=== PATIENT | female | born 1980 | race Caucasian/White ===

== ENCOUNTER → 2017-10-12 17:12 | Outpatient (CLI) | payer BC, SELFPAY ==
[2017-10-12 17:46] LABS: Protein, Urine (Random) 16.3 mg/dL (<11.9); Protein:Creat Ratio 62 mg/g CRE (0-200)
[2017-10-12 19:08] LABS: Chlamydia Trachomatis by PCR Negative (Negative); Neisserai gonorrhoeae by PCR Negative (Negative); Probe Check PASS; Sample Adequacy Control PASS; Specimen Processing Control PASS
[2017-10-27 11:07] LABS: HPV APTIMA, High Risk Negative (Negative)
== END ==
PROVIDERS: Family Provider Student in an Organized Health Care Education/Training Program; PCP Student in an Organized Health Care Education/Training Program; Visit Provider Obstetrics & Gynecology
DX: Z12.4 Encounter for screening for malignant neoplasm of cervix (principal); O09.93 Supervision of high risk pregnancy, unspecified, third trimester
CPT/HCPCS: 82570; 84156; 87086; 87491; 87591; 88175; G0145

== ENCOUNTER → 2017-10-21 10:42 | Outpatient (CLI) | payer BC, SELFPAY ==
--- NOTE | 2017-10-21 10:42 | DT_ITS ---
This patient was seen during an EMR downtime October 17, 2017 - October 24, 2017. This patient may have a combination of paper and electronic documentation or all paper documentation. All documentation is viewable within the e-chart portion of [email or web address] for each patient visit.
[2017-10-21 15:10] LABS: Absolute Lymphocyte Count 1.26 X10^3/ul (0.83-4.51); Absolute Neutrophil Count 4.5 X10^3/uL (2.0-7.7); Basophil# 0.01 X10^3/uL; Basophil% 0.2 % (0-1); Eosinophil# 0.04 X10^3/uL; Eosinophils% 0.6 % (0-5); Hematocrit 35.3 % (37-47); Hemoglobin 11.5 g/dl (12.0-15.0); Lymphocyte # 1.26 X10^3/ul (4.0); Mean Corp Hgb Conc 32.6 g/gl (32-36); Mean Corpuscular Hgb 29.2 pg (27.0-32.0); Mean Corpuscular Volume 89.6 fL (81-99); Mean Platelet Vol. 10.3 fl (6.2-12.0); Monocyte# 0.35 X10^3/uL; Monocyte% 5.6 % (0-10); Neutrophil # 4.52 X10^3/uL (2.7-7.7); Neutrophil % 73.4 % (47-70); POSITIVE COUNT NO; POSITIVE DIFFERENTIAL NO; POSITIVE MORPHOLOGY NO; Platelet Count 281 K/mm3 (150-450); RBC Distribution Width CV 13.3 % (11.6-14.6); Red Blood Count 3.94 M/mm3 (4.2-5.4); White Blood Count 6.3 K/mm3 (4.4-11.0)
[2017-10-21 15:39] LABS: ALB/GLOB Ratio 0.8 RATIO (0.9-2.4); AST(SGOT) 7 U/L (15-37); Alanine Aminotransfer ALT/SGPT 12 U/L (13-56); Albumin, Serum 3.1 g/dL (3.2-5.0); Alkaline Phosphatase 87 U/L (45-117); Anion Gap 9 (5-15); BUN 10 mg/dL (7-18); BUN/Creat Ratio 15.6 RATIO (10-20); Calcium,Total 8.5 mg/dL (8.5-10.1); Chloride 107 mmol/L (98-107); Creatinine, Serum 0.64 mg/dL (0.55-1.02); EST Glomerular Filtration Rate 112 mL/min (>60); Est Glom Filt Rate - Afr Amer 136 mL/min (>60); Glucose 104 mg/dL (74-106); Potassium 3.7 mmol/L (3.5-5.1); Protein, Total 7.1 g/dL (6.4-8.2); Sodium Level 140 mmol/L (136-145)
[2017-10-24 10:16] LABS: HIV - WCH Non-Reactive (Nonreactive); Rubella IgG 45.9 IU/mL
[2017-10-28 03:47] LABS: Rapid Plasmin Reagin (RPR) NONREACTIVE (NONREACTIVE)
== END ==
PROVIDERS: Family Provider Student in an Organized Health Care Education/Training Program; PCP Student in an Organized Health Care Education/Training Program; Visit Provider Obstetrics & Gynecology
DX: O09.93 Supervision of high risk pregnancy, unspecified, third trimester (principal); Z3A.00 Weeks of gestation of pregnancy not specified
CPT/HCPCS: 36415; 80053; 85025; 86592; 86703; 86762; 86850; 86900; 87340

== ENCOUNTER → 2017-12-07 08:21 | Outpatient (CLI) | payer BC, SELFPAY ==
--- NOTE | 2017-12-07 08:22 | US_ITS ---
STUDY: SECOND AND THIRD TRIMESTER OBSTETRICAL ULTRASOUND REASON FOR EXAM: Female, 37 years old. Routine survey. LMP: 07/25/2017 TECHNIQUE: Transabdominal PRIOR ULTRASOUND: None. FINDINGS: There is a single intrauterine fetus. The fetus is in a breech presentation. There is demonstrated cardiac activity with a heart rate of 143 bpm. There is a normal amniotic fluid volume. The largest amniotic fluid pocket measures 6.5 x 3.7 cm. The placenta is posterior in location and is not low lying. There are Grade 0 placental changes. The cervix measures 4.1 cm in length. The bilateral adnexal regions are normal. BIOMETRY: BPD: 4.54 cm: 19 weeks, 6 days HC: 17.07 cm: 19 weeks, 5 days AC: 14.70 cm: 20 weeks, 0 days FL: 2.99 cm: 19 weeks, 2 days age by current US: 19 weeks, 5 days. KERLINE by current US: 04/28/2018. Estimated weight: 304 grams, +/- 44 grams, 67 %. Age by LMP: 19 weeks, 2 days. KERLINE by LMP: 05/01/2018. ANATOMY: Gender: Indeterminant Cranium: Normal lateral ventricles. Normal choroid plexus. Normal cerebellum. Normal cisterna magna. Normal face, nose and lips. Chest: Normal 4-chamber heart. Abdomen/Pelvis: Normal diaphragm. Normal stomach. Normal abdominal wall. Normal cord insertion. Normal 3 vessel cord. Normal kidneys. Normal bladder. Spine: Normal cervical spine. Normal thoracic spine. Normal lumbar spine. Normal sacrum. Extremities: Normal bilateral upper extremities. Normal bilateral lower extremities. US/OB Anatomy Scan IMPRESSION: Single live intrauterine at 19 weeks, 5 days by current ultrasound. KERLINE of 04/28/2018. Heart rate of 143 bpm. No suspicious sonographic findings, presentation on current study is breech Electronically Signed: Nickolas Hale MD at 10:42 EDT , Service support ,
== END ==
PROVIDERS: Family Provider Student in an Organized Health Care Education/Training Program; PCP Student in an Organized Health Care Education/Training Program; Visit Provider Obstetrics & Gynecology
DX: O09.93 Supervision of high risk pregnancy, unspecified, third trimester (principal); Z3A.00 Weeks of gestation of pregnancy not specified
CPT/HCPCS: 76805

== ENCOUNTER → 2018-01-25 10:15 | Outpatient (CLI) | payer BC, SELFPAY ==
[2018-01-25 11:18] LABS: Absolute Lymphocyte Count 1.15 X10^3/ul (0.83-4.51); Absolute Neutrophil Count 5.3 X10^3/uL (2.0-7.7); Basophil# 0.01 X10^3/uL; Basophil% 0.1 % (0-1); Eosinophil# 0.07 X10^3/uL; Hematocrit 32.2 % (37-47); Hemoglobin 10.6 g/dl (12.0-15.0); Lymphocyte # 1.15 X10^3/ul (4.0); Lymphocyte % 16.7 % (19-41); Mean Corp Hgb Conc 32.9 g/gl (32-36); Mean Corpuscular Hgb 29.3 pg (27.0-32.0); Mean Platelet Vol. 10.6 fl (6.2-12.0); Monocyte# 0.33 X10^3/uL; Monocyte% 4.8 % (0-10); Neutrophil # 5.33 X10^3/uL (2.7-7.7); Neutrophil % 77.3 % (47-70); Platelet Count 262 K/mm3 (150-450); RBC Distribution Width CV 13.5 % (11.6-14.6); RBC Distribution Width SD 42.4 fl (35.1-43.9); Red Blood Count 3.62 M/mm3 (4.2-5.4); White Blood Count 6.9 K/mm3 (4.4-11.0)
[2018-01-25 11:20] LABS: POSITIVE COUNT NO; POSITIVE DIFFERENTIAL NO; POSITIVE MORPHOLOGY NO
[2018-01-25 11:33] LABS: Glucose Challenge Gest 1H 50g 100 mg/dL (70-140)
== END ==
PROVIDERS: Family Provider Student in an Organized Health Care Education/Training Program; PCP Student in an Organized Health Care Education/Training Program; Visit Provider Obstetrics & Gynecology
DX: Z34.90 Encounter for supervision of normal pregnancy, unspecified, unspecified trimester (principal)
CPT/HCPCS: 36415; 82950; 85025; 86850; 86900

== ENCOUNTER → 2018-02-08 14:26 | Outpatient (CLI) | payer BC, SELFPAY | PROVIDERS: Family Provider Student in an Organized Health Care Education/Training Program; PCP Student in an Organized Health Care Education/Training Program; Referring Provider Obstetrics & Gynecology; Visit Provider Obstetrics & Gynecology | DX: R30.0 Dysuria (principal) | CPT/HCPCS: 87086 ==

== ENCOUNTER → 2018-03-23 15:47 | Outpatient (CLI) | payer BC, SELFPAY ==
[2018-03-23 17:16] LABS: Absolute Lymphocyte Count 1.63 X10^3/ul (0.83-4.51); Absolute Neutrophil Count 6.9 X10^3/uL (2.0-7.7); Basophil# 0.01 X10^3/uL; Basophil% 0.1 % (0-1); Eosinophil# 0.07 X10^3/uL; Eosinophils% 0.8 % (0-5); Hematocrit 35.5 % (37-47); Hemoglobin 11.3 g/dl (12.0-15.0); Lymphocyte # 1.63 X10^3/ul (4.0); Lymphocyte % 17.7 % (19-41); Mean Corp Hgb Conc 31.8 g/gl (32-36); Mean Corpuscular Volume 87.9 fL (81-99); Mean Platelet Vol. 11.1 fl (6.2-12.0); Monocyte% 6.5 % (0-10); Neutrophil # 6.91 X10^3/uL (2.7-7.7); Neutrophil % 74.8 % (47-70); Platelet Count 251 K/mm3 (150-450); RBC Distribution Width CV 14.1 % (11.6-14.6); RBC Distribution Width SD 45.5 fl (35.1-43.9); Red Blood Count 4.04 M/mm3 (4.2-5.4); White Blood Count 9.2 K/mm3 (4.4-11.0)
[2018-03-23 17:18] LABS: POSITIVE COUNT NO; POSITIVE DIFFERENTIAL NO; POSITIVE MORPHOLOGY NO
== END ==
PROVIDERS: Family Provider Student in an Organized Health Care Education/Training Program; PCP Student in an Organized Health Care Education/Training Program; Referring Provider Obstetrics & Gynecology; Visit Provider Obstetrics & Gynecology
DX: O99.019 Anemia complicating pregnancy, unspecified trimester (principal); D64.9 Anemia, unspecified; Z3A.00 Weeks of gestation of pregnancy not specified
CPT/HCPCS: 36415; 85025

== ENCOUNTER → 2018-04-05 17:29 | Outpatient (CLI) | payer BC, SELFPAY ==
[2018-04-05 09:05] VITALS: BMI 45.6
== END ==
PROVIDERS: Family Provider Student in an Organized Health Care Education/Training Program; PCP Student in an Organized Health Care Education/Training Program; Referring Provider Obstetrics & Gynecology; Visit Provider Obstetrics & Gynecology
DX: Z34.90 Encounter for supervision of normal pregnancy, unspecified, unspecified trimester (principal)
CPT/HCPCS: 87081

== ENCOUNTER 2018-04-11 09:15 | Outpatient (CLI) | payer BC, SELFPAY ==
[2018-04-05 09:05] VITALS: BMI 45.6
[2018-04-11 09:55] LABS: Hematocrit 34.5 % (37-47); Hemoglobin 11.2 g/dl (12.0-15.0); Mean Corp Hgb Conc 32.5 g/gl (32-36); Mean Corpuscular Hgb 28.1 pg (27.0-32.0); Mean Corpuscular Volume 86.5 fL (81-99); Mean Platelet Vol. 11.1 fl (6.2-12.0); Platelet Count 225 K/mm3 (150-450); RBC Distribution Width CV 14.4 % (11.6-14.6); Red Blood Count 3.99 M/mm3 (4.2-5.4); White Blood Count 7.7 K/mm3 (4.4-11.0)
[2018-04-11 09:56] LABS: Scan Indicated on CBC? Y/N NO
[2018-04-11 10:01] LABS: Protein, Urine (Random) < 6.0 mg/dL (<11.9); Protein:Creat Ratio 118 mg/g CRE (0-200)
[2018-04-11 10:04] LABS: International Normalized Ratio 0.9; Prothrombin Time (Protime)PT. 12.6 SECONDS (11.7-14.9)
[2018-04-11 10:24] LABS: AST(SGOT) 10 U/L (15-37); Alanine Aminotransfer ALT/SGPT 12 U/L (13-56); EST Glomerular Filtration Rate 120 mL/min (>60); Est Glom Filt Rate - Afr Amer 145 mL/min (>60); Uric Acid 4.9 mg/dL (2.6-6.0)
[2018-04-11 10:27] VITALS: BMI 46.0
--- NOTE | 2018-04-12 08:22 | OB.TRI.NOTE ---
History of Present Illness Date of Service: 04/11/18 Was patient seen by the physician?: No Reason For Visit: NST / PAT for C section. Date of Service: 04/11/18 Final KERLINE Source: US <20 weeks History of Present Illness: Called by Caryn GIBBONS nurse. Pt with BPs 135/92, 135/91, 128/87 1+ pedal edema. ho PIH sx. 139/105 146/103 and 127/87 and 134/88 RN states that NST reactive, but pt sent in for PIH labs. Asking for review of these and orders. Pt without PIH sx. LABS: Cr 0.6 AST/ALT 02/24 Uric acid 4.9 PT/PTT -- WNL Prot/Cr ratio 118 Allergies Penicillins Allergy (Verified 04/05/18 09:06) Rash - Pertinent Past Medical History Medical History: Past Medical History (Last Reviewed 04/12/18 @ 09:06 by Keena Clifford) Anxiety Hypertension Surgical History: Past Surgical History (Last Reviewed 04/12/18 @ 09:06 by Keena Clifford) H/O section Onset Date: ~2013 Laboratory Studies: Laboratory Tests 04/11/18 04/11/18 04/11/18 Range/Units 09:40 09:40 09:40 WBC (4.4-11.0) K/mm3 RBC (4.2-5.4) M/mm3 Hgb (12.0-15.0) g/dl Hct (37-47) % MCV (81-99) fL MCH (27.0-32.0) pg MCHC (32-36) g/gl RDW (11.6-14.6) % RDW Differential (35.1-43.9) fl Plt Count (150-450) K/mm3 MPV (6.2-12.0) fl PT 12.6 (11.7-14.9) SECONDS INR 0.9 APTT 26.0 (24.1-36.2) Seconds Creatinine 0.60 (0.55-1.02) mg/dL Est GFR (MDRD) Af Amer 145 (>60) mL/min Est GFR (MDRD) Non-Af 120 (>60) mL/min Uric Acid 4.9 (2.6-6.0) mg/dL AST 10 L (15-37) U/L ALT 12 L (13-56) U/L U Random Total Protein < 6.0 (<11.9) mg/dL Urine Creatinine 49.80 (NO RANGE EST.) mg/dL Protein/Creatinin Ratio 118 (0-200) mg/g CRE 04/11/18 Range/Units 09:40 WBC 7.7 (4.4-11.0) K/mm3 RBC 3.99 L (4.2-5.4) M/mm3 Hgb 11.2 L (12.0-15.0) g/dl Hct 34.5 L (37-47) % MCV 86.5 (81-99) fL MCH 28.1 (27.0-32.0) pg MCHC 32.5 (32-36) g/gl RDW 14.4 (11.6-14.6) % RDW Differential 45.0 H (35.1-43.9) fl Plt Count 225 (150-450) K/mm3 MPV 11.1 (6.2-12.0) fl PT (11.7-14.9) SECONDS INR APTT (24.1-36.2) Seconds Creatinine (0.55-1.02) mg/dL Est GFR (MDRD) Af Amer (>60) mL/min Est GFR (MDRD) Non-Af (>60) mL/min Uric Acid (2.6-6.0) mg/dL AST (15-37) U/L ALT (13-56) U/L U Random Total Protein (<11.9) mg/dL Urine Creatinine (NO RANGE EST.) mg/dL Protein/Creatinin Ratio (0-200) mg/g CRE NST - FHR Rate Baby A Baseline: 130s per RN note. mod variability Reactive per RN note. Strip not avail. Variability:: Moderate Accelerations:: 15 x 15 Decelerations:: None NST Reactive:: Yes FHR Category:: Category I Uterine Activity:: no UCs mentioned in nursing note Impression/Plan PIH . Patient scheduled for repeat C/S on 04/17/18 PIH labs NL NST reactive per RN , Strip not available for my review Nursing noted reviewed and this note generated by review of labs, BPs and nurse charting.
--- OUTSIDE RECORDS SUMMARY | 2018-05-23 23:37 | XMS RPT_ITS ---
:1980 Author Organization OHIP Support Name Relationship Address Phone DANE TAY Unavailable [address] + [place] [address] FIORE, SU Unavailable 0 + [place] [address] [facility] Unavailable [address] + [place] [address] DANE TAY Unavailable [address] + [place] [address] FIORE, SU Unavailable Unavailable + [place] [address] [place] Unavailable [address] + [place] [address] DANE TAY Unavailable [address] + [place] [address] FIORE, SU Unavailable Unavailable + [place] [address] [place] Unavailable [address] + [place] [address] DANE TAY Unavailable [address] + [place] [address] FIORE, SU Unavailable Unavailable + [place] [address] [place] Unavailable [address] + [place] [address] DANE TAY Unavailable [address] + [place] [address] FIORE, SU Unavailable . + [place] [address] [place] Unavailable [address] + [place] [address] DANE TAY Unavailable [address] + [place] [address] MACARENA SU Unavailable . + [place] [address] [place] Unavailable [address] + [place] [address] DANE TAY Unavailable [address] + [place] [address] MACARENA, SU Unavailable Unavailable + [place] [address] [place] Unavailable [address] + [place] [address] DANE TAY Unavailable [address] + [place] [address] FIORE, SU Unavailable Unavailable + [place] [address] [place] Unavailable [address] + [place] [address] DANE TAY Unavailable [address] + [place] [address] FIORE, SU Unavailable .1 + [place] [address] [place] Unavailable [address] + [place] [address] DANE TAY Unavailable [address] + [place] [address] FIORE, SU Unavailable .1 + [place] [address] [place] Unavailable [address] + [place] [address] DANE TAY Unavailable [address] + [place] [address] FIORE, SU Unavailable Unavailable + [place] [address] [place] Unavailable [address] + [place] [address] DANE TAY Unavailable [address] + [place] [address] FIORE, SU Unavailable . + [place] [address] [place] Unavailable [address] + [place] [address] DANE TAY Unavailable [address] + [place] [address] MACARENA SU Unavailable . + [place] [address] [place] Unavailable [address] + [place] [address] DANE TAY Unavailable [address] + [place] [address] MACARENA, SU Unavailable . + [place] [address] [facility] Unavailable [address] + [place] [address] DANE TAY Unavailable [address] + [place] [address] MACARENA SU Unavailable Unavailable + [place] [address] [place] Unavailable [address] + [place] [address] DANE TAY Unavailable [address] + [place] [address] MACARENA SU Unavailable . + [place] [address] [facility] Unavailable [address] + [place] [address] DANE TAY Unavailable [address] + [place] [address] MACARENA SU Unavailable Unavailable + [place] [address] [place] Unavailable [address] + [place] [address] DANE TAY Unavailable [address] + [place] [address] MACARENA SU Unavailable . + [place] [address] [place] Unavailable [address] + [place] [address] DANE TAY Unavailable [address] + [place] [address] SU FIORE Unavailable . + [place] [address] [place] Unavailable [address] + [place] [address] DANE TAY Unavailable [address] + [place] [address] SU FIORE Unavailable . + [place] [address] [place] Unavailable [address] + [place] [address] DANE TAY Unavailable [address] + [place] [address] SU FIORE Unavailable Unavailable + [place] [address] [place] Unavailable [address] + [place] [address] DANE TAY Unavailable [address] + [place] [address] [place] Unavailable [address] + [place] [address] DANE TAY Unavailable [address] + [place] [address] [place] Unavailable [address] + [place] [address] DANE TAY Unavailable [address] + [place] [address] [place] Unavailable [address] + [place] [address] DANE TAY Unavailable [address] + [place] [address] [facility] Unavailable [address] + [place] [address] FOZIA FIORE Unavailable [address] + [place] [address] Care Team Providers Name Role Phone SCOTTIE BULLOCK Attending Unavailable BERTHA HUNT Referring Unavailable NO PRIMARY MD SIOBHAN Primary Care Unavailable Kia Mitchell Attending Unavailable Blaine Henderson Referring Unavailable Bertha Hunt Attending Unavailable Blaine Henderson Referring Unavailable Henderson, Blaine Primary Care Unavailable Marcanthony, Bertha Attending Unavailable Marcanthony, Bertha Referring Unavailable Henderson, Blaine Primary Care Unavailable Marcanthony, Bertha Attending Unavailable Marcanthony, Bertha Referring Unavailable Henderson, Blaine Primary Care Unavailable Marcanthony, Bertha Attending Unavailable Henderson, Blaine Referring Unavailable Henderson, Blaine Primary Care Unavailable Marcanthony, Bertha Attending Unavailable Marcanthony, Bertha Referring Unavailable Henderson, Blaine Primary Care Unavailable Marcanthony, Bertha Attending Unavailable Henderson, Blaine Referring Unavailable Henderson, Blaine Primary Care Unavailable Vinton, Kia Attending Unavailable Henderson, Blaine Referring Unavailable Henderson, Blaine Primary Care Unavailable Marcanthony, Bertha Attending Unavailable Henderson, Blaine Referring Unavailable Henderson, Blaine Primary Care Unavailable Marcanthony, Bertha Attending Unavailable Marcanthony, Bertha Referring Unavailable Henderson, Blaine Primary Care Unavailable Marcanthony, Bertha Attending Unavailable Henderson, Blaine Referring Unavailable Marcanthony, Bertha Attending Unavailable Marcanthony, Bertha Referring Unavailable Henderson, Blaine Primary Care Unavailable Marcanthony, Bertha Attending Unavailable Henderson, Blaine Referring Unavailable Marcanthony, Bertha Attending Unavailable Henderson, Blaine Referring Unavailable Marcanthony, Bertha Attending Unavailable Henderson, Blaine Referring Unavailable Marcanthony, Bertha Attending Unavailable Marcanthony, Bertha Referring Unavailable Henderson, Blaine Primary Care Unavailable Vinton, Kia Attending Unavailable Henderson, Blaine Referring Unavailable Marcanthony, Bertha Attending Unavailable Henderson, Blaine Referring Unavailable Marcanthony, Bertha Attending Unavailable Marcanthony, Bertha Referring Unavailable Henderson, Blaine Primary Care Unavailable Marcanthony, Bertha Admitting Unavailable Marcanthony, Bertha Attending Unavailable Henderson, Blaine Primary Care Unavailable Marcanthony, Bertha Referring Unavailable Benekos, Thuy Attending Unavailable Benekos, Thuy Referring Unavailable Henderson, Blaine Primary Care Unavailable Marcanthony, Bertha Attending Unavailable Henderson, Blaine Referring Unavailable Marcanthony, Bertha Admitting Unavailable Marcanthony, Bertha Attending Unavailable Henderson, Blaine Primary Care Unavailable Marcanthony, Bertha Consulting Unavailable Marcanthony, Bertha Admitting Unavailable Stephen, Kia Attending Unavailable Marcanthony, Bertha Referring Unavailable Henderson, Blaine Primary Care Unavailable Marcanthony, Bertha Consulting Unavailable Marcanthony, Bertha Admitting Unavailable Stephen Kia Attending Unavailable Bertha Hunt Referring Unavailable Blaine Henderson Primary Care Unavailable Bertha Hunt Consulting Unavailable PROBLEMS PROBLEMS DATE TYPE CONDITION / CODE ATTENDING STATUS SOURCE 05/02/2018 Unknown Z09 - Encounter for Kia Mitchell Active [place] follow-up Community examination after Hospital completed treatment Repository for conditions other than malignant neoplasm / Z09(ICD-10) 05/02/2018 Unknown Z30.011 - Encounter Kia Mitchell Active [place] for initial Community prescription of Hospital contraceptive pills Repository / Z30.011(ICD-10) 04/19/2018 Unknown G89.18 - Other acute Marcanthony, Active [place] postprocedural pain [facility] / G89.18(ICD-10) Hospital Repository 04/12/2018 Unknown O09.90 - Supervision Marcanthony, Active [place] of high risk [facility] , Hospital unspecified, Repository unspecified trimester / O09.90(ICD-10) 04/05/2018 Unknown O09.93 - Supervision Marcanthony, Active [place] of high risk [facility] , Hospital unspecified, third Repository trimester / O09.93(ICD-10) 04/05/2018 Unknown Z68.41 - Body mass Marcanthony, Active [place] index (BMI) [facility] 40.0-44.9, adult / Hospital Z68.41(ICD-10) Repository 04/05/2018 Unknown Z98.891 - History of Marcanthony, Active [place] uterine scar from [facility] previous surgery / Hospital Z98.891(ICD-10) Repository 04/05/2018 Unknown O16.3 - Unspecified Marcanthony, Active [place] maternal [facility] hypertension, third Hospital trimester / Repository O16.3(ICD-10) 04/05/2018 Unknown O99.019 - Anemia Marcanthony, Active [place] complicating [facility] , Hospital unspecified Repository trimester / O99.019(ICD-10) 04/05/2018 Unknown O99.213 - Obesity Marcanthony, Active [place] complicating [facility] , third Hospital trimester / Repository O99.213(ICD-10) 04/05/2018 Unknown Z3A.35 - 35 weeks Marcanthony, Active [place] gestation of [facility] / Hospital Z3A.35(ICD-10) Repository 03/08/2018 Unknown Z3A.32 - 32 weeks Marcanthony, Active [place] gestation of [facility] / Hospital Z3A.32(ICD-10) Repository 03/08/2018 Unknown O99.013 - Anemia Marcanthtrevin, Active [place] complicating [facility] , third Hospital trimester / Repository O99.013(ICD-10) 03/08/2018 Unknown Z3A.30 - 30 weeks Marcanthony, Active [place] gestation of [facility] / Hospital Z3A.30(ICD-10) Repository 02/08/2018 Unknown R30.0 - Dysuria / Marcanthony, Active [place] R30.0(ICD-10) [facility] Hospital Repository 02/08/2018 Unknown Z3A.28 - 28 weeks Marcanthony, Active [place] gestation of [facility] / Hospital Z3A.28(ICD-10) Repository 01/25/2018 Unknown Z34.90 - Encounter Rhianna, Active [place] for supervision of [facility] normal , Hospital unspecified, Repository unspecified trimester / Z34.90(ICD-10) 01/25/2018 Unknown Z23 - Encounter for Rhianna, Active [place] immunization / [facility] Z23(ICD-10) Hospital Repository 01/04/2018 Unknown O09.92 - Supervision StephenKia baker Active [place] of high risk [facility] , Hospital unspecified, second Repository trimester / O09.92(ICD-10) 01/04/2018 Unknown O16.2 - Unspecified StephenKia Active [place] maternal Community hypertension, second Hospital trimester / Repository O16.2(ICD-10) 01/04/2018 Unknown Z3A.23 - 23 weeks VintonKia Active [place] gestation of [facility] / Hospital Z3A.23(ICD-10) Repository PROCEDURES PROCEDURES No Procedure Records FoundRESULTS RESULTS IRRIGATION FOREMAN OFFICE VISIT Observed: 05/02/2018 Status: F Source: [place] REPORT 9:33 AM [facility] REPOSITORY [facility] [address] [place] [address]. [address] [place] [address] OFFICE VISIT Date of Service: 05/02/18 MR#: [id number] Acct: [id number] Name: AMARA FIORE Rep #: [id number] : 1980 Provider: OLGA Mitchell Age/Sex: 37/F Location[place] [facility] Status: Signed Intake Vital Signs05/02/18 Body Mass Index (BMI) 45.7 05/02/18 Height 5 ft 7 in 05/02/18 Weight: 278 lb 05/02/18 Body Mass Index (BMI) 43.5 05/02/18 Blood Pressure 130/84 H Intake Visit Reasons: 2 WK POST OP DEL 04/17/18 Chief Complaint: 2w post c/s Marketing Reporting Analyst Required: No Is patient in pain?: No Allergies Penicillins Allergy (Verified 05/02/18 09:20) Rash Medications Propranolol HCl [Inderal (Beta Emily)] 20 mg PO BID 11/21/15 [History Confirmed 05/02/18] vitamin,calcium,jvuuawbq-neiz-lkqet acid tablet 1 tab PO QDAY 11/09/17 [History Confirmed 05/02/18] Ferrous Sulfate 04/11/18 [History Confirmed 05/02/18] Sertraline HCl [Zoloft] 100 mg PO DAILY 04/11/18 [History Confirmed 05/02/18] desogestrel 0.15 mg-ethinyl estradiol 0.03 mg tablet 1 tab PO QDAY #84 tab 05/02/18 [Rx Confirmed 05/02/18] Is last menstrual period known: No Post menopausal: No Patient : No PFSH Medical History Anxiety (Chronic) Hypertension (Chronic) Surgical History H/O section (Inactive 2013) Family History Mother Diabetes Hypertension Father Diabetes Hypertension Social History household members: significant other, children housing: house number of children: 1 current occupational status: employed current occupation: [employer] pets and animals: Yes history of recent travel: No Smoking Status: Never smoker second hand exposure: No alcohol intake: current alcohol intake frequency: other details: not while substance use type: does not use what type of physical activity do you participate in: none seatbelt use: always do you feel safe at home: Yes HPI 2 WK POST OP DEL 04/17/18: Details: AMARA FIORE is a 37 year old who presents for 2 week post op c section. States doing well emotionally and phydically. Denies issues with bowel or bladder habits. Bottle feeding and wants to start OCP Pregancy History 3 Elective abortions 1 Hx Para 2 Spontaneous abortions Past Pregnancies Del. DateName GA/Weeks Outcome Route Bth WeighInfant GeLabor LgtAnesthesiDel LocatProvider FOB t n h a n Delivery Date: 04/17/18 On 04/18/18 @ 17:01 Dianne Gutierrez CHTN Delivery Date: 08/11/13 On 10/12/17 @ 12:25 Bertha Hunt pushed 3 hours, prolonged labor and baby did not desend Exam GI Inspection: normal to inspection, incision (well healed. Nonerythematous) Palpation: soft, nontender Assessment AND Plan Problems 1. Postop check Z09 2. Oral contraception initial prescription Z30.011 Plan Routine care Discussed use, benefits, risks and side effects of Apri, used previous.. Instruct on start 4 weeks from delivery and reviewed use of condoms. RTO 4 weeks for full pp visit. Medications New: Coding Level of Care Code No Charge Diagnoses Postop check Z09 Oral contraception initial prescription Z30.011 05/02/18 0933 <Electronically signed by Kia MEDRANO> Date Kia MEDRANO Cosigner Signature: Date (if applicable) CC: DISCHARGE INSTRUCTION Observed: 04/19/2018 Status: F Source: [place] 7:44 AM [facility] REPOSITORY [facility] Medical Records Department [address] [place] [address] Instructions for Home/Discharge Instructions 04/19/18 0744 MR#: [id number] Acct: [id number] Name: AMARA FIORE Rep #: [id number] : 1980 37 From: Kia MEDRANO PCP: Blaine Padgett DO Status: ADM IN Additional Instructions: If you experience any of the following, contact your healthcare provider. * Bleeding that soaks a pad every hour for 2 hours * Fever 100.4 or higher * Unrelieved incision or abdominal pain * Swelling, redness, discharge or bleeding from your incision or episiotomy site * Your incision begins to separate * Problems urinating (including inability to urinate or burning while urinating). * Visual changes * Severe headache * Flu-like symptoms * Pain or redness in one of both of your breasts * Pain, warmth, tenderness or swelling in your legs, especially the calf area * Frequent nausea and vomiting * Symptoms of depression or anxiety If you experience any of the following, call 911 or go to the nearest Emergency Room. * Chest pain * Problems breathing * Seizure activity * Partial or complete paralysis of a body part, slurred speech, weakness or drooping of the face, or a sudden inability to walk or hold your balance Allergies/Adverse Reactions: Allergies Penicillins Allergy (Verified 04/05/18 09:06) Rash Medications to take at Discharge Propranolol HCl [Inderal (Beta Emily)] 20 mg PO BID 11/21/15 vitamin,calcium,cttrsgwn-agoa-vusmv acid tablet 1 tab PO QDAY 11/09/17 Ferrous Sulfate 04/11/18 Sertraline HCl [Zoloft] 100 mg PO DAILY 04/11/18 Naproxen 500 mg PO BID PRN #60 tablet 04/19/18 Oxycodone HCl/Acetaminophen [Percocet 5/325] 1 - 2 tablet PO Q4H PRN PRN 3 Days #15 tablet 04/19/18 The following prescriptions were given: Oxycodone HCl/Acetaminophen [Percocet 5/325] 1 - 2 tablet PO Q4H PRN PRN 3 Days #15 tablet PRN Reason: Pain Naproxen 500 mg PO BID PRN #60 tablet PRN Reason: Pain Follow-Up: Call to make an appointment with your doctor for an incision check in 1-2 weeks. You will also need a 6 week post- follow up appointment. Test results from this visit will be discussed in further detail at your follow-up appointment, if applicable. Primary Care Physician: Blaine Henderson DO [Primary Care Provider] - 04/19/18 0744 <Electronically signed by Kia MEDRANO> Date Kia Mitchell MISSILE TECHNICIAN-C CC: Blaine Padgett DO CBC-COMPLETE BLOOD CNT Collected: 04/18/2018 Status: F Source: [place] NO DIFF 5:35 AM [facility] REPOSITORY Order Comment: Comments: Day #1 Reason for Laboratory Test TYPE CODE TESTS RESULT OUT OF RANGE REFERENCE UNITS LAB L100.1000 4.4-11.0 K/mm3 Normal WBC 9.2 LAB L100.1200 4.2-5.4 M/mm3 Low RBC 3.60 LAB L100.1300 12.0-15.0 g/dl Low HGB 10.2 LAB L100.1400 37-47 % Low HCT 31.3 LAB L100.1500 81-99 fL Normal MCV 86.9 LAB L100.1600 27.0-32.0 pg Normal MCH 28.3 LAB L100.1700 32-36 g/gl Normal MCHC 32.6 LAB L100.1810 11.6-14.6 % High RDW CV 14.8 LAB L100.1820 35.1-43.9 fl High RDW SD 46.4 LAB L100.1900 150-450 K/mm3 Normal PLT 193 LAB L100.2000 6.2-12.0 fl Normal MPV 10.9 Performed By: #### L100.0500 #### [facility] [address] [place], [address] OPERATIVE REPORT Observed: 04/17/2018 Status: F Source: [place] 8:41 PM [facility] REPOSITORY [facility] Medical Records Department [address] [place] [address] Operative Report 04/17/18 1231 MR#: [id number] Acct: [id number] Name: AMARA FIORE Rep #: [id number] : 1980 37 From: Bertha Hunt MD PCP: Blaine Padgett DO Status: ADM IN Y Location: [id number] Problem List (1) Obesity complicating in third trimester Status: Acute (2) Status: Acute Qualifiers: Comment: nipt normal, declined carrier and ntd screening. anatomy scan reviewed. 34 week US normal visualization of cardiac vessels on 19 week US, normal growth. (3) History of delivery Status: Acute Comment: plan RLTCS, not a good TOLAC candidate (4) Advanced maternal age (AMA) in Status: Acute Comment: nipt normal. growth us in third trimester (5) Hypertension affecting Status: Acute Qualifiers: Comment: baseline labs, ekg, propanolol, growth us 32 weeks and nsts/gonzalo weekly on (6) Supervision of high-risk Status: Acute Qualifiers: Comment: PRR KERLINE 05/01/18 Boy. OSMAR Greg [place] Report of Operation Date of Procedure: 04/17/18 Pre-Operative Diagnosis: prev csection chtn Post-Operative Diagnosis: Same Surgery/Procedure Performed:: rltcs Description of Surgical Findings:: Enlarged blood vessels right side of the uterus scarring of the lower uterine segment lab courier: Mike Elizonod Type of Anesthesia:: Spinal Special Medications: none Specimen's removed: male Drains: ramsay Estimated Blood Loss (mL): 900 Fluids Replaced: crystalloid Description of Procedure: The patient is a 37-year-old at 38 weeks presented for repeat . Spinal anesthesia was placed without difficulty. Ramsay catheter was placed. The patient was placed in the dorsal supine position with leftward tilt. Patient was prepped and draped in the normal sterile fashion. Pfannenstiel skin incision was made with the scalpel and carried through to the underlying layer of fascia with the scalpel. Fascia was nicked in the midline and the incision extended laterally. The rectus bellies were dissected off superiorly and inferiorly with out complication both sharply and bluntly. The peritoneum was entered digitally. The incision was stretched and a low transverse uterine incision was made with the scalpel. The 's head was delivered atraumatically followed by the anterior and posterior shoulders without complication the rest of the delivered. The cord was clamped and cut and the was handed off to awaiting nurse. The placenta was delivered spontaneously immediately following and was noted to be intact and have a three-vessel cord. The uterus was exteriorized cleared of all clots and debris, and the incision was closed in a double layer closure using #1 Monocryl. The uterus was returned to the maternal abdomen and gutters were cleared of all clots and debris. The ovaries and fallopian tubes were noted to be within normal limits. The peritoneum was closed with 3-0 Monocryl in a running fashion. Fascia was closed with 0 PDS in a running fashion. Subcutaneous tissue was copiously irrigated and the skin was closed with 3-0 Monocryl in a subcuticular fashion. Mepilex dressing were applied without complication. Patient was taken to recovery in stable condition. Grafts/Implants Used: none - Complications none 04/17/182040 <Electronically signed by Bertha Hunt MD> Date Bertha Hunt MD CC: Blaine Padgett DO; Bertha Hunt MD Signed CBC W/DIFF, AUTOMATED Collected: 04/17/2018 Status: F Source: [place] 10:55 AM [facility] REPOSITORY TYPE CODE TESTS RESULT OUT OF RANGE REFERENCE UNITS LAB L100.1000 4.4-11.0 K/mm3 Normal WBC 8.0 LAB L100.1200 4.2-5.4 M/mm3 Low RBC 4.07 LAB L100.1300 12.0-15.0 g/dl Low HGB 11.7 LAB L100.1400 37-47 % Low HCT 35.0 LAB L100.1500 81-99 fL Normal MCV 86.0 LAB L100.1600 27.0-32.0 pg Normal MCH 28.7 LAB L100.1700 32-36 g/gl Normal MCHC 33.4 LAB L100.1810 11.6-14.6 % Normal RDW CV 14.6 LAB L100.1820 35.1-43.9 fl High RDW SD 45.6 LAB L100.1900 150-450 K/mm3 Normal PLT 230 LAB L100.2000 6.2-12.0 fl Normal MPV 11.4 LAB L100.2100 47-70 % High NEUT% 73.1 LAB L100.2200 19-41 % Normal LY% 19.6 LAB L100.2300 0-10 % Normal MONO% 6.5 LAB L100.2400 0-5 % Normal EO% 0.6 LAB L100.2500 0-1 % Normal BASO% 0.1 LAB L100.2550 0.0-0.9 % Normal IM GRAN % 0.100 Result Comment: IG% - Immature Granulocytes (promyelocytes, myelocytes and metamyelocytes) > 1% indicates that a LEFT SHIFT is Present. LAB L100.2620 2.0-7.7 X10 3/uL Normal Absolute Neut 5.8 LAB L100.2720 0.83-4.51 X10 3/ul Normal Absolute Lymph 1.56 Performed By: #### L100.0100 #### [facility] [address] [place], [address] TYPE AND SCREEN Collected: 04/17/2018 Status: F Source: [place] 10:55 AM [facility] REPOSITORY Order Comment: Reason for Type AND Screen/Red Cells: SURGERY Type of Surgery: TYPE CODE TESTS RESULT OUT OF RANGE REFERENCE UNITS LAB B10.0800 A Normal BLOOD TYPE GEL POSITIVE LAB B100.4000 Normal Antibody NEGATIVE Screen Performed By: #### B101.7450 #### [facility] [address] [place], [address] HISTORY AND PHYSICAL Observed: 04/17/2018 Status: F Source: [place] EXAM 9:59 AM [facility] REPOSITORY [facility] Medical Records Department [address] [place] [id number] History and Physical 04/17/18 0956 MR#: [id number] Acct: [id number] Name: FIOREAMARA Rep #: [id number] : 1980 37 From: Bertha Hunt MD PCP: Blaine Padgett DO Status: PRE IN Y Location: [facility] - Problem List (1) Obesity complicating in third trimester Status: Acute (2) Status: Acute Qualifiers: Comment: nipt normal, declined carrier and ntd screening. anatomy scan reviewed. 34 week US normal visualization of cardiac vessels on 19 week US, normal growth. (3) History of delivery Status: Acute Comment: plan RLTCS, not a good TOLAC candidate (4) Advanced maternal age (AMA) in Status: Acute Comment: nipt normal. growth us in third trimester (5) Hypertension affecting Status: Acute Qualifiers: Comment: baseline labs, ekg, propanolol, growth us 32 weeks and nsts/gonzalo weekly on (6) Supervision of high-risk Status: Acute Qualifiers: Comment: PRR KERLINE 05/01/18 Boy. OSMAR Garza Dane History Date of Admission: 08/10/13 Final KERLINE: 04/24/18 Gestational age: 39 Weeks and 0 Days History of this : This is a 37 year-old, G 2P1 at 37 weeks gestational age presents for repeat . she has a history of HTN and it has been well controlled. Medical History: Medical History (Last Reviewed 04/12/18 @ 09:06 by Keena Clifford) Anxiety F41.9 Hypertension I10 Surgical History: Surgical History (Last Reviewed 04/12/18 @ 09:06 by Keena Clifford) H/O section Onset Date: 2013 Z98.891 Allergies Penicillins Allergy (Verified 04/05/18 09:06) Rash Home Medications: Home Medications Propranolol HCl [Inderal (Beta Emily)] 20 mg PO BID 11/21/15 vitamin,calcium,wqnkfhhw-gmjh-fjmgl acid tablet 1 tab PO QDAY 11/09/17 Ferrous Sulfate 04/11/18 Sertraline HCl [Zoloft] 100 mg PO DAILY 04/11/18 Smoking Status: Never smoker Alcohol: None Number of Fetus(es): 1 Heart Tracin History Past Pregnancies: Past Pregnancies Pregancy History 3 Elective abortions 1 Hx Para 1 Spontaneous abortions Hx # Term Pregnancies Ectopic pregnancies Hx # Pregnancies Multiple births # of living children 1 Past Pregnancies Del. Date Name GA/Weeks Outcome Route Bth Weight Gen Labor Lgth Anesthesia Del Locatn Provider FOB 08/11/13 Brent 40 live - full term 9 lbs 5 ounces Male epidural [facility] Delivery Date: 08/11/13 On 10/12/17 @ 12:25 Bertha Hunt pushed 3 hours, prolonged labor and baby did not desend Labs: Course Did the patient receive Yes care? Labs Blood Type: A Current Obstetrical History Gestational Diabetes No Incompetent Cervix No Infertility No IUGR No Macrosomia No Hypertension/Pre-eclampsia Yes: HTN affecting : on propanolol 20 mg bid Placenta Previa/Abruption No PTL/PROM No Uterine anomaly No Oligohydramnios No Polyhydramnios No Multiple gestation No Past Medical History Asthma No Diabetes No Hypertension Yes: chronic HTN 10 yrs. Metoprolol prior to preg. Propanolol during preg Heart disease No Mitral valve prolapse No Neurologic/Seizure disorder/ No Migraines Kidney disease No Liver disease No Varicosities No Clotting disorders/Hx of DVT No Thyroid Dysfunction No Other medical diseases No Psychiatric disorders Yes: Chronic anxiety takes zoloft 100 mg during Major trauma No Abnormal PAP smear No Sleep apnea No Mammogram in the last 2 years Yes Enter DETAILS of medical Anemia during on Iron x 3 mths. history Advanced maternal age: 37 Social History Marital Status: SINGLE Alleged father Dane Brizuela Hx Smoking No Smoking Status Never smoker Expected Delivery Method: Spontaneous Vaginal Review of Systems Constitutional: Denies: Fever, Malaise Eyes: Denies: Blurred vision, Vision Change HEENT: Denies: Head Aches, Visual Changes Cardiovascular: Denies: Chest Pain, Palpitations Respiratory: Denies: Cough, Shortness of Breath, Wheezing Gastrointestinal: Denies: Abdominal Pain, Diarrhea, Nausea, Vomiting Genitourinary: Denies: Dysuria, Hematuria Musculoskeletal: Denies: Joint Pain, Muscle pain Skin: Denies: Lesions, Rash Neurological: Denies: Blurred vision, Focal weakness, Headaches Psychiatric: Denies: Anxiety, Depression Endocrine: Denies: Heat/ Cold Intolerance Hematologic/ Lymphatic: Denies: Easy Bruising, Easy Bleeding Physical Exam General: Alert, Cooperative, No apparent distress HEENT: Atraumatic, Normocephalic. Negative for: Thyromegaly, Lymphadenopathy Cardiovascular: Regular rate Lungs: Normal air movement Abdomen: Soft, Non Tender, Gravid Neurological: Deep Tendon Reflexes 2+/4 and Symmetrical, Neuro grossly intact. Negative for: Clonus ELASTIC ASSEMBLER: Normal external genitalia. Negative for: Vulvar lesions Estimated gestational size: Appropriate for gestational size Presentation: Cephalic Assessment/Plan All Active Problems (Last Reviewed 04/12/18 @ 09:06 by Keena Estrada Obesity complicating in third trimester (Acute) (Acute) History of delivery (Acute) Advanced maternal age (AMA) in (Acute) Hypertension affecting (Acute) Supervision of high-risk (Acute) Anemia affecting (Resolved) This is a 37 year-old, , at 37 weeks gestational age prsents for RLTCS plan RLTCS cHTN 04/17/18 0959 <Electronically signed by Bertha Hunt MD> Date Bertha Hunt MD Cosigner Signature: Date (if applicable) CC: Blaine Padgett DO; Bertha Hunt MD Signed IRRIGATION FOREMAN OFFICE VISIT Observed: 04/12/2018 Status: F Source: [place] [facility] REPORT 11:36 [facility] [address] [place], [place] [address] OFFICE VISIT Date of Service: 04/12/18 MR#: [id number] Acct: [id number] Name: AMARA FIORE Rep #: [id number] : 1980 Provider: Bertha Hunt MD Age/Sex: 37/F [place] [facility] [place]: Signed Intake Vital Signs04/12/18 Body Mass Index (BMI) 46.0 04/12/18 Height 5 ft 7 in 04/12/18 Weight: 292 lb 04/12/18 Body Mass Index (BMI) 45.7 04/12/18 Blood Pressure 130/100 H Intake Visit Reasons: 37 WEEK OB Chief Complaint: est ob Marketing Reporting Analyst Required: No Is patient in pain?: Yes Allergies Penicillins Allergy (Verified 04/05/18 09:06) Rash Medications Propranolol HCl [Inderal (Beta Emily)] 20 mg PO BID 11/21/15 [History Confirmed 04/12/18] vitamin,calcium,yubhgrxp-psmv-fakju acid tablet 1 tab PO QDAY 11/09/17 [History Confirmed 04/12/18] Ferrous Sulfate 04/11/18 [History Confirmed 04/12/18] Sertraline HCl [Zoloft] 100 mg PO DAILY 04/11/18 [History Confirmed 04/12/18] Last Menstral Period: 07/29/17 Zika: Zika virus screening: Negative : No PFSH PFSH Medical History Anxiety (Chronic) Hypertension (Chronic) Surgical History H/O section (2013) Family History Mother Diabetes Hypertension Father Diabetes Hypertension Social History household members: significant other, children housing: house number of children: 1 current occupational status: employed current occupation: [employer] pets and animals: Yes history of recent travel: No Smoking Status: Never smoker second hand exposure: No alcohol intake: current alcohol intake frequency: other details: not while substance use type: does not use what type of physical activity do you participate in: none seatbelt use: always do you feel safe at home: Yes Pregancy History 3 Elective abortions 1 Hx Para 1 Spontaneous abortions Past Pregnancies Del. DatName GA/WeeksOutcome [facility] LocaProviderFOB e ht en th ia tn 08/11/13Kaden 40 live birC-sectio9 lbs 5 Male epiduralWCH SAM th - fuln ounces l term Delivery Date: 08/11/13 On 10/12/17 @ 12:25 Bertha Hunt pushed 3 hours, prolonged labor and baby did not desend HPI 37 WEEK OB: Details: AMARA FIORE is a 37 year old who presents for routine OB visit. OB Visit KERLINE Calculator Estimated Delivery Date 05/01/18 Based on LMP (certain) 07/25/17 Current WG 37w 2d Number 1 Expected Delivery Route/Plan RLTCS 04/17/18 Specific Issue/Plans flu vaccine: planning on it tdap vaccine: given rhogam: na LARC form signed: maxwell labor support person: Dane pain management: R CS cut cord/dad catch: : no PP control planned: considering special requests: [] Initial Weight: 286 lb Date Weight BP Urine PFHR FuHt Pres MCTX DilatioFetal SVisit NProvideComment rot ov n t ote r s EGA Ef Gluco faced se 10/12/1285 lb 129/86 8 4 oz (+ 114 oz) w 2d Visit Notes Visit Date: 04/12/18 no vb lof co some n/v/d interimttent headache. mildly elevated bps at home had normal bloodwork and neg protein in urine Bertha Hunt MD on 04/12/18 Visit Date: 04/05/18 no vb lof good fm no regular ctx. bpp 12/21 gonzalo grossly normal Bertha Hunt MD on 04/05/18 Visit Date: 03/29/18 Doing well, No VB, LOF. Kia Mitchell NP-C on 03/29/18 Visit Date: 03/23/18 no v lof good fm no regualr ctx. bedside GONZALO WNL 22 cm Bertha Hunt MD on 03/28/18 Visit Date: 03/08/18 no vb lof good fm increased discharge no LOF Bertha Hunt MD on 03/08/18 Visit Date: 02/22/18 no vb lof good fm nor egular ctx Bertha Hunt MD on 02/22/18 Visit Date: 02/08/18 no vb lof good fm n regular ctx Bertha Hunt MD on 02/08/18 Visit Date: 01/25/18 no vb lof good fm no regular ctx. cbc gct today. rh positive. tdap Bertha Hunt MD on 01/25/18 Visit Date: 01/04/18 No VB, LOF. Doing well. Good FM Kia Mitchell NP-C on 01/04/18 Visit Date: 12/07/17 no vb cramping reviewed us Bertha Hunt MD on 12/08/17 Visit Date: 11/09/17 co persistent n/v doesn't want any meds. Bertha Hunt MD on 11/09/17 Visit Date: 10/12/17 No visit notes to display ACOG First Trimester First Trimester: Desire for , Alcohol, Tobacco Cessation, Illicit/Recreational Drug/Substance Use, Intimate Partner Violence, Barriers to care, Unstable Housing, Communication Barriers, Environmental/Work Hazards, Anticipated Course of Care, Toxoplasmosis Precations, Use of Any medications, Sexual activity, Exercise, Dental Care, Sauna/Hot tub use, Seat Belt use, Childbirth classes/Hospital facilities, , Travel, Indications for US and Screening for Aneuploidy Diagnostics Diagnostics Labs Blood Type A POSITIVE 01/25/18 Antibody Screen NEGATIVE 01/25/18 Hct 34.5 % (37-47) L 04/11/18 Hgb 11.2 g/dl (12.0-15.0) L 04/11/18 Glucose 1 Hr 50 gm 100 mg/dL (70-140) 01/25/18 Group B Strep DNA Cancelled 04/05/18 Details: HIV: Urine Culture: Sequential Screen: NIPT Screen: Office Procedures OB NST Non-Stress Test Indications for Monitoring: Yes hypertension Heart Rate Baseline: 135 Heart Rate Variability: moderate Movement: Present Heart Rate Accelerations: Present Decelerations: Absent Contractions: Absent Impression: Yes Reactive Non-Stress Test Category 1 Results [id number] Office Urine Glucose Negative Last Edit by Keena Clifford on 04/12/18 09:15 Office Urine Protein Negative Last Edit by Keena Clifford on 04/12/18 09:15 Assessment AND Plan Problems 1. Anemia affecting O99.019 2. History of delivery Z98.891 plan RLTCS, not a good TOLAC candidate 3. Obesity complicating in third trimester O99.213 4. Advanced maternal age (AMA) in nipt normal. growth us in third trimester 5. Hypertension affecting in third trimester O16.3 baseline labs, ekg, propanolol, growth us 32 weeks and nsts/gonzalo weekly on 6. 35 weeks gestation of Z3A.35 nipt normal, declined carrier and ntd screening. anatomy scan reviewed. 34 week US normal visualization of cardiac vessels on 19 week US, normal growth. 7. Supervision of high risk in third trimester O09.93 PRR KERLINE 05/01/18 Boy. OSMAR Garza Dane Plan movement and labor precautions reviewed. ACOG trimester education reviewed and updated. see problem list details for updated plan management information and see below for orders placed at this visit. GA appropriate handout given. Orders Orders: Coding Level of Care Code OB Routine Diagnoses Anemia affecting O99.019 History of delivery Z98.891 Obesity complicating in third trimester O99.213 Advanced maternal age (AMA) in Hypertension affecting in third trimester O16.3 Trimester: third trimester 35 weeks gestation of Z3A.35 Weeks of gestation: 35 weeks Supervision of high risk in third trimester O09.93 Trimester: third trimester Additional Codes Non-Stress Test (24195) 04/12/18 1136 <Electronically signed by Bertha Hunt MD> Date Bertha Hunt MD Cosigner Signature: Date (if applicable) CC: CBC-COMPLETE BLOOD CNT Collected: 04/11/2018 Status: F Source: [facility] NO DIFF 9:40 AM [facility] REPOSITORY TYPE CODE TESTS RESULT OUT OF RANGE REFERENCE UNITS LAB L100.1000 4.4-11.0 K/mm3 Normal WBC 7.7 LAB L100.1200 4.2-5.4 M/mm3 Low RBC 3.99 LAB L100.1300 12.0-15.0 g/dl Low HGB 11.2 LAB L100.1400 37-47 % Low HCT 34.5 LAB L100.1500 81-99 fL Normal MCV 86.5 LAB L100.1600 27.0-32.0 pg Normal MCH 28.1 LAB L100.1700 32-36 g/gl Normal MCHC 32.5 LAB L100.1810 11.6-14.6 % Normal RDW CV 14.4 LAB L100.1820 35.1-43.9 fl High RDW SD 45.0 LAB L100.1900 150-450 K/mm3 Normal PLT 225 LAB L100.2000 6.2-12.0 fl Normal MPV 11.1 Performed By: #### L100.0500 #### [facility] [address] [place], [address] PROTEIN+CREATININE Collected: Status: F Source: [facility] RATIO,URINE 04/11/2018 9:40 AM [facility] REPOSITORY TYPE CODE TESTS RESULT OUT OF RANGE REFERENCE UNITS LAB L501.1200 NO RANGE EST. mg/dL Normal UR CREAT 49.80 LAB L501.1930 <11.9 mg/dL Normal < 6.0 PROTEIN,UR.R AN. LAB L501.1940 0-200 mg/g CRE Normal PROT:CRE 118 RATIO Performed By: #### L501.0900 #### [facility] [address] [place], [address] PROTHROMBIN TIME W/INR Collected: 04/11/2018 Status: F Source: [place] 9:40 AM [facility] REPOSITORY TYPE CODE TESTS RESULT OUT OF RANGE REFERENCE UNITS LAB L300.4150 11.7-14.9 SECONDS Normal PROTIME 12.6 LAB L300.4200 Normal INR 0.9 Performed By: #### L300.3900, L300.4310, L501.1105, L501.1400, L501.4100, L501.4405 #### [facility] [address] [place], [address] PARTIAL THROMBOPLAST Collected: 04/11/2018 Status: F Source: [place] TIME 9:40 AM [facility] REPOSITORY TYPE CODE TESTS RESULT OUT OF RANGE REFERENCE UNITS LAB L300.4310 24.1-36.2 Seconds Normal PTT 26.0 Performed By: #### L300.3900, L300.4310, L501.1105, L501.1400, L501.4100, L501.4405 #### [facility] [address] [place], [address] SERUM CREATININE AND Collected: 04/11/2018 Status: F Source: [facility] GFR 9:40 AM [facility] REPOSITORY TYPE CODE TESTS RESULT OUT OF RANGE REFERENCE UNITS LAB L501.1100 0.55-1.02 mg/dL Normal 0.60 CREAT,SERUM Result Comment: The validity of the calculated GFR AND GFRAA in patients over 70 years has not been determined. Clinical correlation is essential. LAB L501.1110 >60 mL/min Normal EST GFR 120 Result Comment: Non- GFR Calc LAB L501.1115 >60 mL/min Normal EST GFR - AA 145 Result Comment: GFR Calc Performed By: #### L300.3900, L300.4310, L501.1105, L501.1400, L501.4100, L501.4405 #### [facility] [address] [place], [address] URIC ACID Collected: 04/11/2018 Status: F Source: [place] [facility] 9:40 AM [facility] REPOSITORY TYPE CODE TESTS RESULT OUT OF RANGE REFERENCE UNITS LAB L501.1400 2.6-6.0 mg/dL Normal URIC 4.9 Result Comment: The drugs N-Acetylcysteine and Metamizole may falsely depress this assay. Performed By: #### L300.3900, L300.4310, L501.1105, L501.1400, L501.4100, L501.4405 #### [facility] [address] [place], [address] AST(SGOT) Collected: 04/11/2018 Status: F Source: [place] [facility] 9:40 AM [facility] REPOSITORY TYPE CODE TESTS RESULT OUT OF RANGE REFERENCE UNITS LAB L501.4100 15-37 U/L Low AST 10 Performed By: #### L300.3900, L300.4310, L501.1105, L501.1400, L501.4100, L501.4405 #### [facility] [address] [place], [address] ALANINE AMINOTRANSFERAS Collected: 04/11/2018 Status: F Source: [place] [facility] (SGPT) 9:40 AM [facility] REPOSITORY TYPE CODE TESTS RESULT OUT OF RANGE REFERENCE UNITS LAB L501.4405 13-56 U/L Low ALT 12 Performed By: #### L300.3900, L300.4310, L501.1105, L501.1400, L501.4100, L501.4405 #### [place] [facility] [address] [place], [address] Observed: 04/05/2018 Status: F Source: [facility] CULTURE, GROUP B 5:47 PM [facility] STREPTOCOCCUS REPOSITORY RAFAEL Culture Group B Beta Streptococcus is not isolated. Performed By: #### M100.1800 #### [place] [facility] [address] [place], [address] IRRIGATION FOREMAN OFFICE VISIT Observed: 04/05/2018 Status: F Source: [facility] REPORT 10:33 AM [facility] REPOSITORY [facility] [address] [place] [address] OFFICE VISIT Date of Service: 04/05/18 MR#: [id number] Acct: [id number] Name: AMARA FIORE Rep #: [id number] : 1980 Provider: Bertha Hunt MD Age/Sex: 37/F [place] [facility] [place] Status: Signed Intake Vital Signs04/05/18 Height 5 ft 7 in 04/05/18 Weight: 291 lb 4 oz 04/05/18 Body Mass Index (BMI) 45.6 04/05/18 Blood Pressure 122/86 H Intake Visit Reasons: 36 WEEK OB Chief Complaint: est ob Marketing Reporting Analyst Required: No Is patient in pain?: No Allergies Penicillins Allergy (Verified 04/05/18 09:06) Rash Medications Propranolol HCl [Inderal (Beta Emily)] 20 mg PO BID 11/21/15 [History Confirmed 04/05/18] vitamin,calcium,qzdwwmeu-ufes-lpale acid tablet 1 tab PO QDAY 11/09/17 [History Confirmed 04/05/18] sertraline 100 mg tablet 100 mg PO DAILY #30 tab 12/14/17 [Rx Confirmed 04/05/18] Last Menstral Period: 07/29/17 Zika: Zika virus screening: Negative : No PFSH PFSH Medical History Anxiety (Chronic) Hypertension (Chronic) Surgical History H/O section (Inactive 2013) Family History Mother Diabetes Hypertension Father Diabetes Hypertension Social History household members: significant other, children housing: house number of children: 1 current occupational status: employed current occupation: [employer] pets and animals: Yes history of recent travel: No Smoking Status: Never smoker second hand exposure: No alcohol intake: current alcohol intake frequency: other details: not while substance use type: does not use what type of physical activity do you participate in: none seatbelt use: always do you feel safe at home: Yes Pregancy History 3 Elective abortions 1 Hx Para 1 Spontaneous abortions Past Pregnancies Del. DatName GA/WeeksOutcome [facility] LocaProviderFOB e ht en ia tn 08/11/13Kaden 40 live birC-sectio9 lbs 5 Male epiduralWCH SAM th - fuln ounces l term Delivery Date: 08/11/13 On 10/12/17 @ 12:25 Bertha Hunt pushed 3 hours, prolonged labor and baby did not desend HPI 36 WEEK OB: Details: AMARA FIORE is a 37 year old who presents for routine OB visit. OB Visit KERLINE Calculator Estimated Delivery Date 05/01/18 Based on LMP (certain) 07/25/17 Current WG 36w 2d Number 1 Expected Delivery Route/Plan RLTCS 04/17/18 Specific Issue/Plans flu vaccine: planning on it tdap vaccine: given rhogam: na LARC form signed: declines labor support person: Dane pain management: R CS cut cord/dad catch: : no PP control planned: considering special requests: [] Initial Weight: 286 lb Date Weight BP Urine PrFHR FuHt Pres MoCTX DilationFetal StVisit NoProviderComments E ot v te GA G Effac lucose ed Visit Notes Visit Date: 04/05/18 no vb lof good fm no regular ctx. bpp 8/8 gonzalo grossly normal Bertha Hunt MD on 04/05/18 Visit Date: 03/29/18 Doing well, No VB, LOF. MITCHELL Márquez on 03/29/18 Visit Date: 03/23/18 no v lof good fm no regualr ctx. bedside GONZALO WNL 22 cm Bertha Hunt MD on 03/28/18 Visit Date: 03/08/18 no vb lof good fm increased discharge no LOF Bertha Hunt MD on 03/08/18 Visit Date: 02/22/18 no vb lof good fm nor egular ctx Bertha Hunt MD on 02/22/18 Visit Date: 02/08/18 no vb lof good fm n regular ctx Bertha Hunt MD on 02/08/18 Visit Date: 01/25/18 no vb lof good fm no regular ctx. cbc gct today. rh positive. tdap Bertha Hunt MD on 01/25/18 Visit Date: 01/04/18 No VB, LOF. Doing well. Good FM MITCHELL Márquez on 01/04/18 Visit Date: 12/07/17 no vb cramping reviewed us Bertha Hunt MD on 12/08/17 Visit Date: 11/09/17 co persistent n/v doesn't want any meds. Bertha Hunt MD on 11/09/17 Visit Date: 10/12/17 No visit notes to display ACOG First Trimester First Trimester: Desire for , Alcohol, Tobacco Cessation, Illicit/Recreational Drug/Substance Use, Intimate Partner Violence, Barriers to care, Unstable Housing, Communication Barriers, Environmental/Work Hazards, Anticipated Course of Care, Toxoplasmosis Precations, Use of Any medications, Sexual activity, Exercise, Dental Care, Sauna/Hot tub use, Seat Belt use, Childbirth classes/Hospital facilities, , Travel, Indications for US and Screening for Aneuploidy Diagnostics Diagnostics Labs Blood Type A POSITIVE 01/25/18 Antibody Screen NEGATIVE 01/25/18 Hct 35.5 % (37-47) L 03/23/18 Hgb 11.3 g/dl (12.0-15.0) L 03/23/18 Obstetrics Ultrasound 12/07/17 Glucose 1 Hr 50 gm 100 mg/dL (70-140) 01/25/18 Details: HIV: Urine Culture: Sequential Screen: NIPT Screen: Results [id number] Office Urine Glucose Negative Last Edit by Keena Clifford on 04/05/18 09:11 Office Urine Protein Negative Last Edit by Keena Clifford on 04/05/18 09:11 Assessment AND Plan Problems 1. History of delivery Z98.891 plan RLTCS, not a good TOLAC candidate 2. Obesity complicating in third trimester O99.213 3. Anemia affecting O99.019 4. Advanced maternal age (AMA) in nipt normal. growth us in third trimester 5. Hypertension affecting in third trimester O16.3 baseline labs, ekg, propanolol, growth us 32 weeks and nsts/gonzalo weekly on 6. 35 weeks gestation of Z3A.35 nipt normal, declined carrier and ntd screening. anatomy scan reviewed. 34 week US normal visualization of cardiac vessels on 19 week US, normal growth. 7. Supervision of high risk in third trimester O09. PRR KERLINE 05/01/18 Greg. OSMAR Garza Dane 8. BMI 40.0-44.9, adult Z68.41 Plan ACOG trimester education reviewed and updated. see problem list details for updated plan management information and see below for orders placed at this visit. [place] appropriate handout given. Orders Orders: Coding Level of Care Code OB Routine Diagnoses History of delivery Z98.891 Obesity complicating in third trimester O99.213 Anemia affecting O99.019 Advanced maternal age (AMA) in Hypertension affecting in third trimester O16.3 Trimester: third trimester 35 weeks gestation of Z3A.35 Weeks of gestation: 35 weeks Supervision of high risk in third trimester O Trimester: third trimester BMI 40.0-44.9, adult Z68.41 04/05/18 1033 <Electronically signed by Bertha Hunt MD> Date Bertha Hunt MD Cosigner Signature: Date (if applicable) CC: IRRIGATION FOREMAN OFFICE VISIT Observed: 03/29/2018 Status: F Source: [facility] REPORT 11:03 AM [facility] [address] [place] [address] OFFICE VISIT Date of Service: 03/29/18 MR#: [id number] Acct: [id number] Name: AMARA FIORE Rep #: [id number] : 1980 Provider: OLGA Mitchell Age/Sex: 37/F [place] [facility] [place] Status: Signed Intake Vital Signs03/29/18 Height 5 ft 7 in 03/29/18 Weight: 291 lb 8 oz 03/29/18 Body Mass Index (BMI) 45.6 03/29/18 Blood Pressure 120/82 H Intake Visit Reasons: 35 WEEK OB Chief Complaint: est ob Marketing Reporting Analyst Required: No Is patient in pain?: No Allergies Penicillins Allergy (Verified 03/29/18 09:30) Rash Medications Propranolol HCl [Inderal (Beta Emily)] 20 mg PO BID 11/21/15 [History Confirmed 03/23/18] vitamin,calcium,ikjiabcc-ejgp-tjjmx acid tablet 1 tab PO QDAY 11/09/17 [History Confirmed 03/29/18] sertraline 100 mg tablet 100 mg PO DAILY #30 tab 12/14/17 [Rx Confirmed 03/29/18] Last Menstral Period: 07/29/17 Zika: Zika virus screening: Negative : No PFSH PFSH Medical History Anxiety (Chronic) Hypertension (Chronic) Surgical History H/O section (Inactive 2013) Family History Mother Diabetes Hypertension Father Diabetes Hypertension Social History household members: significant other, children housing: house number of children: 1 current occupational status: employed current occupation: [employer] pets and animals: Yes history of recent travel: No Smoking Status: Never smoker second hand exposure: No alcohol intake: current alcohol intake frequency: other details: not while substance use type: does not use what type of physical activity do you participate in: none seatbelt use: always do you feel safe at home: Yes Pregancy History 3 Elective abortions 1 Hx Para 1 Spontaneous abortions Past Pregnancies Del. DatName GA/WeeksOutcome Route [facility] LgAnesthesDel LocaProviderFOB e ht en th ia tn 08/11/13Kaden 40 live birC-sectio9 lbs 5 Male epiduralWCH SAM th - fuln ounces l term Delivery Date: 08/11/13 On 10/12/17 @ 12:25 Bertha Hunt pushed 3 hours, prolonged labor and baby did not desend HPI 35 WEEK OB: Details: AMARA FIORE is a 37 year old who presents for routine OB visit. OB Visit KERLINE Calculator Estimated Delivery Date 05/01/18 Based on LMP (certain) 07/25/17 Current WG 35w 2d Number 1 Expected Delivery Route/Plan RLTCS 04/17/18 Specific Issue/Plans flu vaccine: planning on it tdap vaccine: given rhogam: na LARC form signed: declines labor support person: Dane pain management: R CS cut cord/dad catch: : no PP control planned: considering special requests: [] Initial Weight: 286 lb Date Weight BP Urine PrFHR FuHt Pres MoCTX DilationFetal StVisit NoProviderComments E ot v te GA G Effac lucose ed Visit Notes Visit Date: 03/29/18 Doing well, No VB, LOF. MITCHELL Márquez on 03/29/18 Visit Date: 03/23/18 no v lof good fm no regualr ctx. bedside GONZALO WNL 22 cm Bertha Hunt MD on 03/28/18 Visit Date: 03/08/18 no vb lof good fm increased discharge no LOF Bertha Hunt MD on 03/08/18 Visit Date: 02/22/18 no vb lof good fm nor egular ctx Bertha Hunt MD on 02/22/18 Visit Date: 02/08/18 no vb lof good fm n regular ctx Bertha Hunt MD on 02/08/18 Visit Date: 01/25/18 no vb lof good fm no regular ctx. cbc gct today. rh positive. tdap Bertha Hunt MD on 01/25/18 Visit Date: 01/04/18 No VB, LOF. Doing well. Good FM MITCHELL Márquez on 01/04/18 Visit Date: 12/07/17 no vb cramping reviewed us Bertha Hunt MD on 12/08/17 Visit Date: 11/09/17 co persistent n/v doesn't want any meds. Bertha Hunt MD on 11/09/17 Visit Date: 10/12/17 No visit notes to display ACOG First Trimester First Trimester: Desire for , Alcohol, Tobacco Cessation, Illicit/Recreational Drug/Substance Use, Intimate Partner Violence, Barriers to care, Unstable Housing, Communication Barriers, Environmental/Work Hazards, Anticipated Course of Care, Toxoplasmosis Precations, Use of Any medications, Sexual activity, Exercise, Dental Care, Sauna/Hot tub use, Seat Belt use, Childbirth classes/Hospital facilities, , Travel, Indications for US and Screening for Aneuploidy Diagnostics Diagnostics Labs Blood Type A POSITIVE 01/25/18 Antibody Screen NEGATIVE 01/25/18 Hct 35.5 % (37-47) L 03/23/18 Hgb 11.3 g/dl (12.0-15.0) L 03/23/18 Obstetrics Ultrasound 12/07/17 Rubella IgG Antibody 45.9 IU/mL 10/21/17 RPR NONREACTIVE (NONREACTIVE) 10/21/17 Hep Bs Antigen 10/21/17 Glucose 1 Hr 50 gm 100 mg/dL (70-140) 01/25/18 Miscellaneous Test 10/21/17 Details: HIV: Urine Culture: Sequential Screen: NIPT Screen: Results [id number] Office Urine Glucose Negative Last Edit by Keena Clifford on 03/29/18 09:38 Office Urine Protein Negative Last Edit by Keena Clifford on 03/29/18 09:38 Assessment AND Plan Problems 1. Supervision of high risk in third trimester O09.93 PRR KERLINE 05/01/18 Boy. PC Greg Dane 2. Obesity complicating in third trimester O99.213 3. 35 weeks gestation of Z3A.35 nipt normal, declined carrier and ntd screening. anatomy scan reviewed. 34 week US normal visualization of cardiac vessels on 19 week US, normal growth. 4. History of delivery Z98.891 plan RLTCS, not a good TOLAC candidate 5. Advanced maternal age (AMA) in nipt normal. growth us in third trimester 6. Hypertension affecting in third trimester O16.3 baseline labs, ekg, propanolol, growth us 32 weeks and nsts/gonzalo weekly on Plan Orders placed: NST reactive Reviewed of labor precautions, movement/kick counts ACOG trimester education reviewed and updated See problem list details for updated plan of care Gestational age appropriate handout given RTO: 1 week Orders Orders: Coding Level of Care Code OB Routine Diagnoses Supervision of high risk in third trimester O09.93 Trimester: third trimester Obesity complicating in third trimester O99.213 35 weeks gestation of Z3A.35 Weeks of gestation: 35 weeks History of delivery Z98.891 Advanced maternal age (AMA) in Hypertension affecting in third trimester O16.3 Trimester: third trimester 03/29/18 1103 <Electronically signed by Kia MEDRANO> Date Kia MEDRANO Cosigner Signature: Date (if applicable) CC: IRRIGATION FOREMAN OFFICE VISIT Observed: 03/28/2018 Status: F Source: [facility] REPORT 2:25 AM [facility] [address] [place] [address] OFFICE VISIT Date of Service: 03/23/18 MR#: [id number] Acct: [id number] Name: AMARA FIORE Rep #: [id number] : 1980 Provider: Bertha Hunt MD Age/Sex: 37/F [place] [facility] [place] Status: Signed Intake Vital Signs03/23/18 Height 5 ft 6 in 03/23/18 Weight: 293 lb 8 oz 03/23/18 Body Mass Index (BMI) 47.3 03/23/18 Blood Pressure 120/80 Intake Visit Reasons: 34 WEEK OB Marketing Reporting Analyst Required: No Is patient in pain?: Yes Allergies Penicillins Allergy (Verified 03/23/18 14:52) Rash Medications Propranolol HCl [Inderal (Beta Emily)] 20 mg PO BID 11/21/15 [History Confirmed 03/23/18] vitamin,calcium,ljyivtrt-ktec-mybpo acid tablet 1 tab PO QDAY 11/09/17 [History Confirmed 03/23/18] sertraline 100 mg tablet 100 mg PO DAILY #30 tab 12/14/17 [Rx Confirmed 03/23/18] Last Menstral Period: 07/29/17 Zika: Zika virus screening: Negative : No PFSH PFSH Medical History Anxiety (Chronic) Hypertension (Chronic) Surgical History H/O section (2013) Family History Mother Diabetes Hypertension Father Diabetes Hypertension Social History household members: significant other, children housing: house number of children: 1 current occupational status: employed current occupation: [employer] pets and animals: Yes history of recent travel: No Smoking Status: Never smoker second hand exposure: No alcohol intake: current alcohol intake frequency: other details: not while substance use type: does not use what type of physical activity do you participate in: none seatbelt use: always do you feel safe at home: Yes Pregancy History 3 Elective abortions 1 Hx Para 1 Spontaneous abortions Past Pregnancies Del. DatName GA/WeeksOutcome [facility] LocaProviderFOB e ht en th ia tn 08/11/13Kaden 40 live birC-sectio9 lbs 5 Male epiduralWCH SAM th - fuln ounces l term Delivery Date: 08/11/13 On 10/12/17 @ 12:25 Bertha Hunt pushed 3 hours, prolonged labor and baby did not desend HPI 34 WEEK OB: Details: AMARA FIORE is a 37 year old who presents for routine OB visit. OB Visit KERLINE Calculator Estimated Delivery Date 05/01/18 Based on LMP (certain) 07/25/17 Current WG 35w 1d Number 1 Expected Delivery Route/Plan RLTCS 04/17/18 Specific Issue/Plans flu vaccine: planning on it tdap vaccine: given rhogam: na LARC form signed: maxwell labor support person: Dane pain management: R CS cut cord/dad catch: : no PP control planned: considering special requests: [] Initial Weight: 286 lb Date Weight BP Urine PFHR FuHt Pres MCTX DilatioFetal SVisit NProvideComment rot ov n t ote r s EGA Ef Gluco faced se 10/12/1285 lb 129/86 8 4 oz (+ 114 oz) w 2d Visit Notes Visit Date: 03/23/18 no v lof good fm no regualr ctx. bedside GONZALO WNL 22 cm Bertha Hunt MD on 03/28/18 Visit Date: 03/08/18 no vb lof good fm increased discharge no LOF Bertha Hunt MD on 03/08/18 Visit Date: 02/22/18 no vb lof good fm nor egular ctx Bertha Hutn MD on 02/22/18 Visit Date: 02/08/18 no vb lof good fm n regular ctx Bertha Hunt MD on 02/08/18 Visit Date: 01/25/18 no vb lof good fm no regular ctx. cbc gct today. rh positive. tdap Bertha Hunt MD on 01/25/18 Visit Date: 01/04/18 No VB, LOF. Doing well. Good FM Kia Mitchell NP-Rolly on 01/04/18 Visit Date: 12/07/17 no vb cramping reviewed us Bertha Hunt MD on 12/08/17 Visit Date: 11/09/17 co persistent n/v doesn't want any meds. Bertha Hunt MD on 11/09/17 Visit Date: 10/12/17 No visit notes to display ACOG First Trimester First Trimester: Desire for , Alcohol, Tobacco Cessation, Illicit/Recreational Drug/Substance Use, Intimate Partner Violence, Barriers to care, Unstable Housing, Communication Barriers, Environmental/Work Hazards, Anticipated Course of Care, Toxoplasmosis Precations, Use of Any medications, Sexual activity, Exercise, Dental Care, Sauna/Hot tub use, Seat Belt use, Childbirth classes/Hospital facilities, , Travel, Indications for US and Screening for Aneuploidy Diagnostics Diagnostics Labs Blood Type A POSITIVE 01/25/18 Antibody Screen NEGATIVE 01/25/18 Hct 35.5 % (37-47) L 03/23/18 Hgb 11.3 g/dl (12.0-15.0) L 03/23/18 Obstetrics Ultrasound 12/07/17 Rubella IgG Antibody 45.9 IU/mL 10/21/17 RPR NONREACTIVE (NONREACTIVE) 10/21/17 Hep Bs Antigen 10/21/17 Chlam trachomat DNA PCR Negative (Negative) 10/12/17 N.gonorrhoeae DNA (PCR) Negative (Negative) 10/12/17 Glucose 1 Hr 50 gm 100 mg/dL (70-140) 01/25/18 Miscellaneous Test 10/21/17 Details: HIV: Urine Culture: Sequential Screen: NIPT Screen: Office Procedures OB NST Non-Stress Test Indications for Monitoring: Yes hypertension Heart Rate Baseline: 130 Heart Rate Variability: moderate Movement: Present Heart Rate Accelerations: Present Decelerations: Absent Contractions: Absent Impression: Yes Reactive Non-Stress Test Category 1 Results [id number] Office Urine Glucose Negative Last Edit by Mery Vann on 03/23/18 14:53 Office Urine Protein Negative Last Edit by Mery Vann on 03/23/18 14:53 Assessment AND Plan Problems 1. History of delivery Z98.891 plan RLTCS, not a good TOLAC candidate 2. Anemia affecting in third trimester O99.013 iron. check cbc monthly 3. Advanced maternal age (AMA) in nipt normal. growth us in third trimester 4. Hypertension affecting in third trimester O16.3 baseline labs, ekg, propanolol, growth us 32 weeks and nsts/gonzalo weekly on 5. 34 weeks gestation of Z3A.34 nipt normal, declined carrier and ntd screening. anatomy scan reviewed. 34 week US normal visualization of cardiac vessels on 19 week US, normal growth. 6. Supervision of high risk in third trimester O09.93 PRR KERLINE 05/01/18 Boy. OSMAR Garza Dane 7. Obesity complicating in third trimester O99.213 Plan ACOG trimester education reviewed and updated. see problem list details for updated plan management information and see below for orders placed at this visit. GA appropriate handout given. movement and labor precautions reviewed. Orders Orders: Coding Level of Care Code OB Routine Diagnoses History of delivery Z98.891 Anemia affecting in third trimester O99.013 Trimester: third trimester Advanced maternal age (AMA) in Hypertension affecting in third trimester O16.3 Trimester: third trimester 34 weeks gestation of Z3A.34 Weeks of gestation: 34 weeks Supervision of high risk in third trimester O09.93 Trimester: third trimester Obesity complicating in third trimester O99.213 Additional Codes Non-Stress Test (80333) 03/28/18 0225 <Electronically signed by Bertha Hunt MD> Date Bertha Hunt MD Cosigner Signature: Date (if applicable) CC: CBC W/DIFF, AUTOMATED Collected: 03/23/2018 Status: F Source: [facility] 3:54 PM [facility] REPOSITORY TYPE CODE TESTS RESULT OUT OF RANGE REFERENCE UNITS LAB L100.1000 4.4-11.0 K/mm3 Normal WBC 9.2 LAB L100.1200 4.2-5.4 M/mm3 Low RBC 4.04 LAB L100.1300 12.0-15.0 g/dl Low HGB 11.3 LAB L100.1400 37-47 % Low HCT 35.5 LAB L100.1500 81-99 fL Normal MCV 87.9 LAB L100.1600 27.0-32.0 pg Normal MCH 28.0 LAB L100.1700 32-36 g/gl Low MCHC 31.8 LAB L100.1810 11.6-14.6 % Normal RDW CV 14.1 LAB L100.1820 35.1-43.9 fl High RDW SD 45.5 LAB L100.1900 150-450 K/mm3 Normal PLT 251 LAB L100.2000 6.2-12.0 fl Normal MPV 11.1 LAB L100.2100 47-70 % High NEUT% 74.8 LAB L100.2200 19-41 % Low LY% 17.7 LAB L100.2300 0-10 % Normal MONO% 6.5 LAB L100.2400 0-5 % Normal EO% 0.8 LAB L100.2500 0-1 % Normal BASO% 0.1 LAB L100.2550 0.0-0.9 % Normal IM GRAN % 0.100 Result Comment: IG% - Immature Granulocytes (promyelocytes, myelocytes and metamyelocytes) > 1% indicates that a LEFT SHIFT is Present. LAB L100.2620 2.0-7.7 X10 3/uL Normal Absolute Neut 6.9 LAB L100.2720 0.83-4.51 X10 3/ul Normal Absolute Lymph 1.63 Performed By: #### L100.0100 #### [facility] [address] [place], [place], [address] IRRIGATION FOREMAN OFFICE VISIT Observed: 03/08/2018 Status: F Source: [place] [facility] REPORT 10:09 AM [facility] REPOSITORY [facility] [address] [place] [address] OFFICE VISIT Date of Service: 03/08/18 MR#: [id number] Acct: [id number] Name: AMARA FIORE Jud Rep #: [id number] : 1980 Provider: Bertha Hunt MD Age/Sex: 37/F [place] [facility] [place] Status: Signed Intake Vital Signs03/08/18 Height 5 ft 6 in 03/08/18 Weight: 289 lb 2 oz 03/08/18 Body Mass Index (BMI) 46.6 03/08/18 Blood Pressure 120/74 Intake Visit Reasons: 32 WEEK OB Marketing Reporting Analyst Required: No Is patient in pain?: No Allergies Penicillins Allergy (Verified 03/08/18 09:39) Rash Medications Propranolol HCl [Inderal (Beta Emily)] 20 mg PO BID 11/21/15 [History Confirmed 03/08/18] vitamin,calcium,kjsjfnqs-yxak-maexz acid tablet 1 tab PO QDAY 11/09/17 [History Confirmed 03/08/18] sertraline 100 mg tablet 100 mg PO DAILY #30 tab 12/14/17 [Rx Confirmed 03/08/18] Last Menstral Period: 07/29/17 Zika: Zika virus screening: Negative : No PFSH PFSH Medical History Anxiety (Chronic) Hypertension (Chronic) Surgical History H/O section (Inactive 2013) Family History Mother Diabetes Hypertension Father Diabetes Hypertension Social History household members: significant other, children housing: house number of children: 1 current occupational status: employed current occupation: [employer] pets and animals: Yes history of recent travel: No Smoking Status: Never smoker second hand exposure: No alcohol intake: current alcohol intake frequency: other details: not while substance use type: does not use what type of physical activity do you participate in: none seatbelt use: always do you feel safe at home: Yes Pregancy History 3 Elective abortions 1 Hx Para 1 Spontaneous abortions Past Pregnancies Del. DatName GA/WeeksOutcome Route [facility] LocaProviderFOB e ht en ia tn 08/11/13Kaden 40 live birC-sectio9 lbs 5 Male epiduralWCH SAM th - fuln ounces l term Delivery Date: 08/11/13 On 10/12/17 @ 12:25 Bertha Hunt pushed 3 hours, prolonged labor and baby did not desend HPI 32 WEEK OB: Details: AMARA FIORE is a 37 year old who presents for routine OB visit. Trace Protein and negative glucose on urine dip. OB Visit KERLINE Calculator Estimated Delivery Date 05/01/18 Based on LMP (certain) 07/25/17 Current WG 32w 2d Number 1 Expected Delivery Route/Plan RLTCS 04/17/18 Specific Issue/Plans flu vaccine: planning on it tdap vaccine: given rhogam: na LARC form signed: declines labor support person: Dane pain management: R CS cut cord/dad catch: : no PP control planned: considering special requests: [] Initial Weight: 286 lb Date Weight BP Urine PFHR FuHt Pres MCTX DilatioFetal SVisit NProvideComment rot ov n t ote r s EGA Ef Gluco faced se 10/12/1285 lb 129/86 8 4 oz (+ 114 oz) w 2d Visit Notes Visit Date: 03/08/18 no vb lof good fm increased discharge no LOF Bertha Hunt MD on 03/08/18 Visit Date: 02/22/18 no vb lof good fm nor egular ctx Bertha Hunt MD on 02/22/18 Visit Date: 02/08/18 no vb lof good fm n regular ctx Betrha Hunt MD on 02/08/18 Visit Date: 01/25/18 no vb lof good fm no regular ctx. cbc gct today. rh positive. tdap Bertha Hunt MD on 01/25/18 Visit Date: 01/04/18 No VB, LOF. Doing well. Good FM MITCHELL Márquez on 01/04/18 Visit Date: 12/07/17 no vb cramping reviewed us Bertha Hunt MD on 12/08/17 Visit Date: 11/09/17 co persistent n/v doesn't want any meds. Bertha Hunt MD on 11/09/17 Visit Date: 10/12/17 No visit notes to display ACOG First Trimester First Trimester: Desire for , Alcohol, Tobacco Cessation, Illicit/Recreational Drug/Substance Use, Intimate Partner Violence, Barriers to care, Unstable Housing, Communication Barriers, Environmental/Work Hazards, Anticipated Course of Care, Toxoplasmosis Precations, Use of Any medications, Sexual activity, Exercise, Dental Care, Sauna/Hot tub use, Seat Belt use, Childbirth classes/Hospital facilities, , Travel, Indications for US and Screening for Aneuploidy Diagnostics Diagnostics Labs Blood Type A POSITIVE 01/25/18 Antibody Screen NEGATIVE 01/25/18 Hct 32.2 % (37-47) L 01/25/18 Hgb 10.6 g/dl (12.0-15.0) L 01/25/18 Obstetrics Ultrasound 12/07/17 Rubella IgG Antibody 45.9 IU/mL 10/21/17 RPR NONREACTIVE (NONREACTIVE) 10/21/17 Hep Bs Antigen 10/21/17 Chlam trachomat DNA PCR Negative (Negative) 10/12/17 N.gonorrhoeae DNA (PCR) Negative (Negative) 10/12/17 Glucose 1 Hr 50 gm 100 mg/dL (70-140) 01/25/18 Miscellaneous Test 10/21/17 Details: HIV: Urine Culture: Sequential Screen: NIPT Screen: Office Procedures OB NST Non-Stress Test Indications for Monitoring: Yes hypertension, Yes BMI >40 Heart Rate Baseline: 130 Heart Rate Variability: minimal Movement: Present Heart Rate Accelerations: Present Decelerations: Absent Contractions: Absent Impression: Yes Reactive Non-Stress Test Category 1 Assessment AND Plan Problems 1. History of delivery Z98.891 plan RLTCS, not a good TOLAC candidate 2. BMI 40.0-44.9, adult Z68.41 growth and nsts 32 weeks on 3. Anemia affecting in third trimester O99.013 iron. check cbc monthly 4. Advanced maternal age (AMA) in nipt normal. growth us in third trimester 5. Hypertension affecting in third trimester O16.3 baseline labs, ekg, propanolol, growth us 32 weeks and nsts/gonzalo weekly on 6. 32 weeks gestation of Z3A.32 nipt normal, declined carrier and ntd screening. anatomy scan reviewed. 7. Supervision of high risk in third trimester O09.93 PRR KERLINE 05/01/18 Boy. OSMAR Garza Dane Plan ACOG trimester education reviewed and updated. see problem list details for updated plan management information and see below for orders placed at this visit. GA appropriate handout given. movement and labor precautions reviewed. Orders Orders: Coding Level of Care Code OB Routine Diagnoses History of delivery Z98.891 BMI 40.0-44.9, adult Z68.41 Anemia affecting in third trimester O99.013 Trimester: third trimester Advanced maternal age (AMA) in Hypertension affecting in third trimester O16.3 Trimester: third trimester 32 weeks gestation of Z3A.32 Weeks of gestation: 32 weeks Supervision of high risk in third trimester O09.93 Trimester: third trimester Additional Codes Non-Stress Test (24702) 03/08/18 1009 <Electronically signed by Bertha Hunt MD> Date [facility] Signature: Date (if applicable) CC: IRRIGATION FOREMAN OFFICE VISIT Observed: 02/22/2018 Status: F Source: [facility] REPORT 9:53 AM [facility] [address] [place] [address]. [address] [place] [address] OFFICE VISIT Date of Service: 02/22/18 MR#: [id number] Acct: [id number] Name: AMARA FIORE Rep #: [id number] : 1980 Provider: Bertha Hunt MD Age/Sex: 37/F [place] [facility] [place] Status: Signed Intake Vital Signs02/22/18 Height 5 ft 6 in 02/22/18 Weight: 287 lb 2 oz 02/22/18 Body Mass Index (BMI) 46.3 02/22/18 Blood Pressure 112/86 H Intake Visit Reasons: 30 WEEK OB Chief Complaint: est ob Marketing Reporting Analyst Required: No Is patient in pain?: No Allergies Penicillins Allergy (Verified 02/22/18 09:32) Rash Medications Propranolol HCl [Inderal (Beta Emily)] 20 mg PO BID 11/21/15 [History Confirmed 02/22/18] vitamin,calcium,dwjqeqzt-sxop-efinn acid tablet 1 tab PO QDAY 11/09/17 [History Confirmed 02/22/18] sertraline 100 mg tablet 100 mg PO DAILY #30 tab 12/14/17 [Rx Confirmed 02/22/18] Last Menstral Period: 07/29/17 Zika: Zika virus screening: Negative : No PFSH PFSH Medical History Anxiety (Chronic) Hypertension (Chronic) Surgical History H/O section (Inactive 2013) Family History Mother Diabetes Hypertension Father Diabetes Hypertension Social History household members: significant other, children housing: house number of children: 1 current occupational status: employed current occupation: [employer] pets and animals: Yes history of recent travel: No Smoking Status: Never smoker second hand exposure: No alcohol intake: current alcohol intake frequency: other details: not while substance use type: does not use what type of physical activity do you participate in: none seatbelt use: always do you feel safe at home: Yes Pregancy History 3 Elective abortions 1 Hx Para 1 Spontaneous abortions Past Pregnancies Del. DatName GA/WeeksOutcome Route [facility] LgAnesthesDel LocaProviderFOB e ht en ia tn 08/11/13Kaden 40 live birC-sectio9 lbs 5 Male epiduralWCH SAM th - fuln ounces l term Delivery Date: 08/11/13 On 10/12/17 @ 12:25 Bertha Hunt pushed 3 hours, prolonged labor and baby did not desend HPI 30 WEEK OB: Details: AMARA FIORE is a 37 year old who presents for routine OB visit. OB Visit KERLINE Calculator Estimated Delivery Date 05/01/18 Based on LMP (certain) 07/25/17 Current WG 30w 2d Number 1 Expected Delivery Route/Plan RLTCS Specific Issue/Plans flu vaccine: planning on it tdap vaccine: given rhogam: na LARC form signed: declines labor support person: Dane pain management: R CS cut cord/dad catch: : no PP control planned: considering special requests: [] Initial Weight: 286 lb Date Weight BP Urine PrFHR FuHt Pres MoCTX DilationFetal StVisit NoProviderComments E ot v te GA G Effac lucose ed Visit Notes Visit Date: 02/22/18 no vb lof good fm nor egular ctx Bertha Hunt MD on 02/22/18 Visit Date: 02/08/18 no vb lof good fm n regular ctx Bertha Hunt MD on 02/08/18 Visit Date: 01/25/18 no vb lof good fm no regular ctx. cbc gct today. rh positive. tdap Bertha Hunt MD on 01/25/18 Visit Date: 01/04/18 No VB, LOF. Doing well. Good FM MITCHELL Márquez on 01/04/18 Visit Date: 12/07/17 no vb cramping reviewed us Bertha Hunt MD on 12/08/17 Visit Date: 11/09/17 co persistent n/v doesn't want any meds. Bertha Hunt MD on 11/09/17 Visit Date: 10/12/17 No visit notes to display ACOG First Trimester First Trimester: Desire for , Alcohol, Tobacco Cessation, Illicit/Recreational Drug/Substance Use, Intimate Partner Violence, Barriers to care, Unstable Housing, Communication Barriers, Environmental/Work Hazards, Anticipated Course of Care, Toxoplasmosis Precations, Use of Any medications, Sexual activity, Exercise, Dental Care, Sauna/Hot tub use, Seat Belt use, Childbirth classes/Hospital facilities, , Travel, Indications for US and Screening for Aneuploidy Diagnostics Diagnostics Labs Blood Type A POSITIVE 01/25/18 Antibody Screen NEGATIVE 01/25/18 Hct 32.2 % (37-47) L 01/25/18 Hgb 10.6 g/dl (12.0-15.0) L 01/25/18 Obstetrics Ultrasound 12/07/17 Rubella IgG Antibody 45.9 IU/mL 10/21/17 RPR NONREACTIVE (NONREACTIVE) 10/21/17 Hep Bs Antigen 10/21/17 Chlam trachomat DNA PCR Negative (Negative) 10/12/17 N.gonorrhoeae DNA (PCR) Negative (Negative) 10/12/17 Glucose 1 Hr 50 gm 100 mg/dL (70-140) 01/25/18 Miscellaneous Test 10/21/17 Details: HIV: Urine Culture: Sequential Screen: NIPT Screen: Results [id number] Office Urine Glucose Negative Last Edit by Keena Clifford on 02/22/18 09:35 Office Urine Protein Negative Last Edit by Keena Clifford on 02/22/18 09:35 Assessment AND Plan Problems 1. History of delivery Z98.891 plan RLTCS, not a good TOLAC candidate 2. BMI 40.0-44.9, adult Z68.41 growth and nsts 32 weeks on 3. Anemia affecting in third trimester O99.013 iron. check cbc monthly 4. Advanced maternal age (AMA) in nipt normal. growth us in third trimester 5. Hypertension affecting in third trimester O16.3 baseline labs, ekg, propanolol, growth us 32 weeks and nsts/gonzalo weekly on 6. 30 weeks gestation of Z3A.30 Pregancy History 3 Elective abortions 1 Hx Para 1 Spontaneous abortions Hx # Term Pregnancies Ectopic pregnancies Hx # Pregnancies Multiple births # of living children 1 Past Pregnancies Del. Date Name GA/Weeks Outcome Route Bth Weight Gen Labor Lgth Anesthesia Del Locatn Provider FOB 08/11/[id number] - full termC-section9 lbs 5 ouncesMale epiduralWCHSEM Delivery Date: 08/11/13 On 10/12/17 @ 12:25 Bertha Hunt pushed 3 hours, prolonged labor and baby did not desend 7. Supervision of high risk in third trimester O09.93 PRR KERLINE 05/01/18 Boy. OSMAR Garza Dane Plan movement and labor precautions reviewed. ACOG trimester education reviewed and updated. see problem list details for updated plan management information and see below for orders placed at this visit. GA appropriate handout given. Orders Orders: Coding Level of Care Code OB Routine Diagnoses History of delivery Z98.891 BMI 40.0-44.9, adult Z68.41 Anemia affecting in third trimester O99.013 Trimester: third trimester Advanced maternal age (AMA) in Hypertension affecting in third trimester O16.3 Trimester: third trimester 30 weeks gestation of Z3A.30 Weeks of gestation: 30 weeks Supervision of high risk in third trimester O09.93 Trimester: third trimester 02/22/18 0953 <Electronically signed by Bertha Hunt MD> Date Bertha Hunt MD Cosigner Signature: Date (if applicable) CC: IRRIGATION FOREMAN OFFICE VISIT Observed: 02/08/2018 Status: F Source: [facility] REPORT 9:08 AM [facility] [address] [place] [address] OFFICE VISIT Date of Service: 02/08/18 MR#: [id number] Acct: [id number] Name: AMARA FIORE Rep #: [id number] : 1980 Provider: Bertha Hunt MD Age/Sex: 37/F [place] [facility] [place]: Signed Intake Vital Signs02/08/18 Height 5 ft 6 in 02/08/18 Weight: 289 lb 4 oz 02/08/18 Body Mass Index (BMI) 46.7 02/08/18 Blood Pressure 122/68 H Intake Visit Reasons: 28 WEEK OB Chief Complaint: est ob Marketing Reporting Analyst Required: No Is patient in pain?: No Allergies Penicillins Allergy (Verified 02/08/18 08:48) Rash Medications Propranolol HCl [Inderal (Beta Emily)] 20 mg PO BID 11/21/15 [History Confirmed 01/25/18] vitamin,calcium,awgsqvqu-fysw-ywtco acid tablet 1 tab PO QDAY 11/09/17 [History Confirmed 01/25/18] sertraline 100 mg tablet 100 mg PO DAILY #30 tab 12/14/17 [Rx Confirmed 01/25/18] Last Menstral Period: 07/29/17 Zika: Zika virus screening: Negative : No PFSH PFSH Medical History Anxiety (Chronic) Hypertension (Chronic) Surgical History H/O section (Inactive 2013) Family History Mother Diabetes Hypertension Father Diabetes Hypertension Social History household members: significant other, children housing: house number of children: 1 current occupational status: employed current occupation: [employer] pets and animals: Yes history of recent travel: No Smoking Status: Never smoker second hand exposure: No alcohol intake: current alcohol intake frequency: other details: not while substance use type: does not use what type of physical activity do you participate in: none seatbelt use: always do you feel safe at home: Yes Pregancy History 3 Elective abortions 1 Hx Para 1 Spontaneous abortions Past Pregnancies Del. DatName GA/WeeksOutcome Route Bt WeigInswetat Frances LgAnesthesDel LocaProviderFOB e ht en th ia tn 08/11/13Kaden 40 live birC-sectio9 lbs 5 Male epiduralWCH SAM th - fuln ounces l term Delivery Date: 08/11/13 On 10/12/17 @ 12:25 Bertha Hunt pushed 3 hours, prolonged labor and baby did not desend HPI 28 WEEK OB: Details: AMARA FIORE is a 37 year old who presents for routine OB visit. OB Visit KERLINE Calculator Estimated Delivery Date 05/01/18 Based on LMP (certain) 07/25/17 Current WG 28w 2d Number 1 Expected Delivery Route/Plan RLTCS Specific Issue/Plans flu vaccine: [] tdap vaccine: [] rhogam: na LARC form signed: declines labor support person: Dane pain management: R CS cut cord/dad catch: : no PP control planned: [] special requests: [] Initial Weight: 286 lb Date Weight BP Urine PrFHR FuHt Pres MoCTX DilationFetal StVisit NoProviderComments E ot v te GA G Effac lucose ed Visit Notes Visit Date: 02/08/18 no vb lof good fm n regular ctx Bertha Hunt MD on 02/08/18 Visit Date: 01/25/18 no vb lof good fm no regular ctx. cbc gct today. rh positive. tdap Bertha Hunt MD on 01/25/18 Visit Date: 01/04/18 No VB, LOF. Doing well. Good FM MITCHELL Márquez on 01/04/18 Visit Date: 12/07/17 no vb cramping reviewed us Bertha Hunt MD on 12/08/17 Visit Date: 11/09/17 co persistent n/v doesn't want any meds. Bertha Hunt MD on 11/09/17 Visit Date: 10/12/17 No visit notes to display ACOG First Trimester First Trimester: Desire for , Alcohol, Tobacco Cessation, Illicit/Recreational Drug/Substance Use, Intimate Partner Violence, Barriers to care, Unstable Housing, Communication Barriers, Environmental/Work Hazards, Anticipated Course of Care, Toxoplasmosis Precations, Use of Any medications, Sexual activity, Exercise, Dental Care, Sauna/Hot tub use, Seat Belt use, Childbirth classes/Hospital facilities, , Travel, Indications for US and Screening for Aneuploidy Diagnostics Diagnostics Labs Blood Type A POSITIVE 01/25/18 Antibody Screen NEGATIVE 01/25/18 Hct 32.2 % (37-47) L 01/25/18 Hgb 10.6 g/dl (12.0-15.0) L 01/25/18 Obstetrics Ultrasound 12/07/17 Rubella IgG Antibody 45.9 IU/mL 10/21/17 RPR NONREACTIVE (NONREACTIVE) 10/21/17 Hep Bs Antigen 10/21/17 Chlam trachomat DNA PCR Negative (Negative) 10/12/17 N.gonorrhoeae DNA (PCR) Negative (Negative) 10/12/17 Glucose 1 Hr 50 gm 100 mg/dL (70-140) 01/25/18 Miscellaneous Test 10/21/17 Details: HIV: Urine Culture: Sequential Screen: NIPT Screen: Results [email or web address] Office Urine Glucose Negative Last Edit by Keena Clifford on 02/08/18 08:56 Office Urine Protein Negative Last Edit by Keena Clifford on 02/08/18 08:56 BMSUA Office Urine Color STRAW Last Edit by Keena Clifford on 02/08/18 08:57 Office Urine Clarity Clear Last Edit by Keena Clifford on 02/08/18 08:57 Assessment AND Plan Problems 1. Supervision of high risk in third trimester O09.93 PRR KERLINE 05/01/18 Boy. PC Greg Dane 2. BMI 40.0-44.9, adult Z68.41 growth and nsts 32 weeks on 3. Advanced maternal age (AMA) in nipt normal. growth us in third trimester 4. Hypertension affecting in third trimester O16.3 baseline labs, ekg, propanolol, growth us 32 weeks and nsts weekly on 5. 28 weeks gestation of Z3A.28 Pregancy History 3 Elective abortions 1 Hx Para 1 Spontaneous abortions Hx # Term Pregnancies Ectopic pregnancies Hx # Pregnancies Multiple births # of living children 1 Past Pregnancies Del. Date Name GA/Weeks Outcome Route Bth Weight Gen Labor Lgth Anesthesia Del Justoatn Provider FOB 08/11/[id number] - full termC-section9 lbs 5 ouncesMale epiduralWCHSEM Delivery Date: 08/11/13 On 10/12/17 @ 12:25 Bertha Hunt pushed 3 hours, prolonged labor and baby did not desend 6. Anemia affecting in third trimester O99.013 7. History of delivery Z98.891 plan RLTCS, not a good TOLAC candidate Plan movement and labor precautions reviewed. ACOG trimester education reviewed and updated. see problem list details for updated plan management information and see below for orders placed at this visit. GA appropriate handout given. Orders Orders: Coding Level of Care Code OB Routine Diagnoses Supervision of high risk in third trimester O09.93 Trimester: third trimester BMI 40.0-44.9, adult Z68.41 Advanced maternal age (AMA) in Hypertension affecting in third trimester O16.3 Trimester: third trimester 28 weeks gestation of Z3A.28 Weeks of gestation: 28 weeks Anemia affecting in third trimester O99.013 Trimester: third trimester History of delivery Z98.891 02/08/18 0908 <Electronically signed by Bertha Hunt MD> Date Bertha Hunt MD Cosigner Signature: Date (if applicable) CC: Observed: 02/08/2018 Status: F Source: [facility] CULTURE, URINE 12:00 AM [facility] REPOSITORY Urine Culture Culture exhibits no growth. Performed By: #### M100.0650 #### [facility] [address] [place], [place], [address] CBC W/DIFF, AUTOMATED Collected: 01/25/2018 Status: F Source: [facility] 10:55 AM [facility] REPOSITORY TYPE CODE TESTS RESULT OUT OF RANGE REFERENCE UNITS LAB L100.1000 4.4-11.0 K/mm3 Normal WBC 6.9 LAB L100.1200 4.2-5.4 M/mm3 Low RBC 3.62 LAB L100.1300 12.0-15.0 g/dl Low HGB 10.6 LAB L100.1400 37-47 % Low HCT 32.2 LAB L100.1500 81-99 fL Normal MCV 89.0 LAB L100.1600 27.0-32.0 pg Normal MCH 29.3 LAB L100.1700 32-36 g/gl Normal MCHC 32.9 LAB L100.1810 11.6-14.6 % Normal RDW CV 13.5 LAB L100.1820 35.1-43.9 fl Normal RDW SD 42.4 LAB L100.1900 150-450 K/mm3 Normal PLT 262 LAB L100.2000 6.2-12.0 fl Normal MPV 10.6 LAB L100.2100 47-70 % High NEUT% 77.3 LAB L100.2200 19-41 % Low LY% 16.7 LAB L100.2300 0-10 % Normal MONO% 4.8 LAB L100.2400 0-5 % Normal EO% 1.0 LAB L100.2500 0-1 % Normal BASO% 0.1 LAB L100.2550 0.0-0.9 % Normal IM GRAN % 0.100 Result Comment: IG% - Immature Granulocytes (promyelocytes, myelocytes and metamyelocytes) > 1% indicates that a LEFT SHIFT is Present. LAB L100.2620 2.0-7.7 X10 3/uL Normal Absolute Neut 5.3 LAB L100.2720 0.83-4.51 X10 3/ul Normal Absolute Lymph 1.15 Performed By: #### L100.0100, L501.0250 #### [facility] [address] [place], [address] GLUCOSE CHALLENGE GEST Collected: 01/25/2018 Status: F Source: [facility] 1H 50G 10:55 AM [facility] REPOSITORY TYPE CODE TESTS RESULT OUT OF RANGE REFERENCE UNITS LAB L501.0250 70-140 mg/dL Normal GLU GEST 100 50g 1H Performed By: #### L100.0100, L501.0250 #### [facility] [address] [place], [address] TYPE AND SCREEN Collected: 01/25/2018 Status: F Source: [facility] 10:55 AM [facility] REPOSITORY Order Comment: Reason for Type AND Screen/Red Cells: TYPE CODE TESTS RESULT OUT OF RANGE REFERENCE UNITS LAB B10.0800 A Normal BLOOD TYPE GEL POSITIVE LAB B100.4000 Normal Antibody NEGATIVE Screen Performed By: #### B101.7450 #### [facility] [address] [place] [place], [address] IRRIGATION FOREMAN OFFICE VISIT Observed: 01/25/2018 Status: F Source: [facility] REPORT 10:16 AM [facility] REPOSITORY [facility] [place] [address] [address] [place] [address] OFFICE VISIT Date of Service: 01/25/18 MR#: [id number] Acct: [id number] Name: AMARA FIORE Rep #: [id number] : 1980 Provider: Bertha Hunt MD Age/Sex: 37/F [place] [facility] [place] Status: Signed Intake Vital Signs01/25/18 Height 5 ft 7 in 01/25/18 Weight: 289 lb 01/25/18 Body Mass Index (BMI) 45.2 01/25/18 Blood Pressure 122/80 Intake Visit Reasons: 26 WEEK OB Marketing Reporting Analyst Required: No Is patient in pain?: No Allergies Penicillins Allergy (Verified 01/25/18 09:55) Rash Medications Propranolol HCl [Inderal (Beta Emily)] 20 mg PO BID 11/21/15 [History Confirmed 01/25/18] vitamin,calcium,cjsolioz-ayrm-jsuvf acid tablet 1 tab PO QDAY 11/09/17 [History Confirmed 01/25/18] sertraline 100 mg tablet 100 mg PO DAILY #30 tab 12/14/17 [Rx Confirmed 01/25/18] Last Menstral Period: 07/29/17 Zika: Zika virus screening: Negative : No PFSH PFSH Medical History Anxiety (Chronic) Hypertension (Chronic) Surgical History H/O section (Inactive 2013) Family History Mother Diabetes Hypertension Father Diabetes Hypertension Social History household members: significant other, children housing: house number of children: 1 current occupational status: employed current occupation: [employer] pets and animals: Yes history of recent travel: No Smoking Status: Never smoker second hand exposure: No alcohol intake: current alcohol intake frequency: other details: not while substance use type: does not use what type of physical activity do you participate in: none seatbelt use: always do you feel safe at home: Yes Pregancy History 3 Elective abortions 1 Hx Para 1 Spontaneous abortions Past Pregnancies Del. DatName GA/WeeksOutcome Route [facility] LocaProviderFOB e ht en ia tn 08/11/13Kaden 40 live birC-sectio9 lbs 5 Male epiduralWCH SAM th - fuln ounces l term Delivery Date: 08/11/13 On 10/12/17 @ 12:25 Bertha Hunt pushed 3 hours, prolonged labor and baby did not desend HPI 26 WEEK OB: Details: AMARA FIORE is a 37 year old who presents for routine OB visit. OB Visit KERLINE Calculator Estimated Delivery Date 05/01/18 Based on LMP (certain) 07/25/17 Current WG 26w 2d Number 1 Expected Delivery Route/Plan RLTCS Specific Issue/Plans flu vaccine: [] tdap vaccine: [] rhogam: na LARC form signed: declines labor support person: Dane pain management: R CS cut cord/dad catch: : no PP control planned: [] special requests: [] Initial Weight: 286 lb Date Weight BP Urine PrFHR FuHt Pres MoCTX DilationFetal StVisit NoProviderComments E ot v te GA G Effac lucose ed Visit Notes Visit Date: 01/25/18 no vb lof good fm no regular ctx. cbc gct today. rh positive. tdap Bertha Hunt MD on 01/25/18 Visit Date: 01/04/18 No VB, LOF. Doing well. Good FM MITCHELL Márquez on 01/04/18 Visit Date: 12/07/17 no vb cramping reviewed us Bertha Hunt MD on 12/08/17 Visit Date: 11/09/17 co persistent n/v doesn't want any meds. Bertha Hunt MD on 11/09/17 Visit Date: 10/12/17 No visit notes to display ACOG First Trimester First Trimester: Desire for , Alcohol, Tobacco Cessation, Illicit/Recreational Drug/Substance Use, Intimate Partner Violence, Barriers to care, Unstable Housing, Communication Barriers, Environmental/Work Hazards, Anticipated Course of Care, Toxoplasmosis Precations, Use of Any medications, Sexual activity, Exercise, Dental Care, Sauna/Hot tub use, Seat Belt use, Childbirth classes/Hospital facilities, , Travel, Indications for US and Screening for Aneuploidy Diagnostics Diagnostics Labs Blood Type A POSITIVE 10/21/17 Antibody Screen NEGATIVE 10/21/17 Hct 35.3 % (37-47) L 10/21/17 Hgb 11.5 g/dl (12.0-15.0) L 10/21/17 Pap Smear Negative 09/26/13 Obstetrics Ultrasound 12/07/17 Rubella IgG Antibody 45.9 IU/mL 10/21/17 RPR NONREACTIVE (NONREACTIVE) 10/21/17 Hep Bs Antigen 10/21/17 Chlam trachomat DNA PCR Negative (Negative) 10/12/17 N.gonorrhoeae DNA (PCR) Negative (Negative) 10/12/17 Rhogam given: No 08/13/13 Miscellaneous Test 10/21/17 Details: HIV: Urine Culture: Sequential Screen: NIPT Screen: Results [id number] Office Urine Glucose Negative Last Edit by Mery Vann on 01/25/18 09:53 Office Urine Protein Negative Last Edit by Mery Vann on 01/25/18 09:53 Immunizations Boostrix Tdap Performing Provider: Bertha Hunt MD Administered by: Mery Vann on 01/25/18 10:03 Dose Route Admin Location Lot Number Expiration Date NDC Beauty Sales Advisor 0.5 mL IM Right Arm (SQ) [id number] 10/27/19 55581-276-16 [employer] VIS Given Date VIS Publication Date 01/25/18 07/09/14 Eligibility Eligibility Date Assessment AND Plan Problems 1. BMI 40.0-44.9, adult Z68.41 growth and nsts 32 weeks on 2. Advanced maternal age (AMA) in nipt normal. growth us in third trimester 3. Hypertension affecting in second trimester O16.2 baseline labs, ekg, propanolol, growth us 32 weeks and nsts weekly on 4. 23 weeks gestation of Z3A.23 Pregancy History 3 Elective abortions 1 Hx Para 1 Spontaneous abortions Hx # Term Pregnancies Ectopic pregnancies Hx # Pregnancies Multiple births # of living children 1 Past Pregnancies Del. Date Name GA/Weeks Outcome Route Bth Weight Infant Gen Labor Lgth Anesthesia Del Locatn Provider FOB 08/11/[id number] - full termC-section9 lbs 5 ouncesMale epiduralWCHSEM Delivery Date: 08/11/13 On 10/12/17 @ 12:25 Bertha Hunt pushed 3 hours, prolonged labor and baby did not desend 5. Supervision of high risk in second trimester O PRR KERLINE 05/01/18 Boy. OSMAR Garza Dane Plan Orders placed: none ACOG trimester education reviewed and updated. see problem list details for updated plan management information. GA appropriate handout given. Orders Orders: Medications Discontinued: Boostrix Tdap (diphth,pertus(acell),tetanus) Disco0.5 mL IM ONCE NS Z23 Mery Vann ntinued Reason: Office Medication has been Documente d as given Coding Level of Care Code OB Routine Diagnoses BMI 40.0-44.9, adult Z68.41 Advanced maternal age (AMA) in Hypertension affecting in second trimester O16.2 Trimester: second trimester 23 weeks gestation of Z3A.23 Weeks of gestation: 23 weeks Supervision of high risk in second trimester O09 Trimester: second trimester 01/25/18 1016 <Electronically signed by Bertha Hunt MD> Date Bertha eNlson Signature: Date (if applicable) CC: IRRIGATION FOREMAN OFFICE VISIT Observed: 01/04/2018 Status: F Source: [facility] REPORT 9:18 AM [facility] [address] [place] [address] OFFICE VISIT Date of Service: 01/04/18 MR#: [id number] Acct: [id number] Name: AMARA FIORE Rep #: [id number] : 1980 Provider: OLGA Mitchell Age/Sex: 37/F [place] [facility] [place] Status: Signed Intake Vital Signs01/04/18 Height 5 ft 7 in 01/04/18 Weight: 291 lb 8 oz 01/04/18 Body Mass Index (BMI) 45.6 01/04/18 Blood Pressure 102/70 Intake Visit Reasons: 23 WEEK OB Chief Complaint: est ob Marketing Reporting Analyst Required: No Allergies Penicillins Allergy (Verified 01/04/18 08:59) Rash Medications Propranolol HCl [Inderal (Beta Emily)] 20 mg PO BID 11/21/15 [History Confirmed 01/04/18] vitamin,calcium,jyktkboj-pmwb-wggbk acid tablet 1 tab PO QDAY 11/09/17 [History Confirmed 01/04/18] sertraline 100 mg tablet 100 mg PO DAILY #30 tab 12/14/17 [Rx Confirmed 01/04/18] Last Menstral Period: 07/29/17 Zika: Zika virus screening: Negative : No PFSH PFSH Medical History Anxiety (Chronic) Hypertension (Chronic) Surgical History H/O section (Inactive 2013) Family History Mother Diabetes Hypertension Father Diabetes Hypertension Social History household members: significant other, children housing: house number of children: 1 current occupational status: employed current occupation: [employer] pets and animals: Yes history of recent travel: No Smoking Status: Never smoker second hand exposure: No alcohol intake: current alcohol intake frequency: other details: not while substance use type: does not use what type of physical activity do you participate in: none seatbelt use: always do you feel safe at home: Yes Pregancy History 3 Elective abortions 1 Hx Para 1 Spontaneous abortions Past Pregnancies Del. DatName GA/WeeksOutcome Route Bth WeigInfant GLabor LgAnesthesDel LocaProviderFOB e ht en th ia tn 08/11/13Kaden 40 live birC-sectio9 lbs 5 Male epiduralWCH SAM th - fuln ounces l term Delivery Date: 08/11/13 On 10/12/17 @ 12:25 Bertha Hunt pushed 3 hours, prolonged labor and baby did not desend HPI 23 WEEK OB: Details: AMARA FIORE is a 37 year old who presents for routine OB visit. OB Visit KERLINE Calculator Estimated Delivery Date 05/01/18 Based on LMP (certain) 07/25/17 Current WG 23w 2d Number 1 Expected Delivery Route/Plan RLTCS Specific Issue/Plans flu vaccine: [] tdap vaccine: [] rhogam: na LARC form signed: declines labor support person: Dane pain management: R CS cut cord/dad catch: : no PP control planned: [] special requests: [] Initial Weight: 286 lb Date Weight BP Urine PrFHR FuHt Pres MoCTX DilationFetal StVisit NoProviderComments E ot v te GA G Effac lucose ed Visit Notes Visit Date: 01/04/18 No VB, LOF. Doing well. Good FM MITCHELL Márquez on 01/04/18 Visit Date: 12/07/17 no vb cramping reviewed us Bertha Hunt MD on 12/08/17 Visit Date: 11/09/17 co persistent n/v doesn't want any meds. Bertha Hunt MD on 11/09/17 Visit Date: 10/12/17 No visit notes to display ACOG First Trimester First Trimester: Desire for , Alcohol, Tobacco Cessation, Illicit/Recreational Drug/Substance Use, Intimate Partner Violence, Barriers to care, Unstable Housing, Communication Barriers, Environmental/Work Hazards, Anticipated Course of Care, Toxoplasmosis Precations, Use of Any medications, Sexual activity, Exercise, Dental Care, Sauna/Hot tub use, Seat Belt use, Childbirth classes/Hospital facilities, , Travel, Indications for US and Screening for Aneuploidy Diagnostics Diagnostics Labs Blood Type A POSITIVE 10/21/17 Antibody Screen NEGATIVE 10/21/17 Hct 35.3 % (37-47) L 10/21/17 Hgb 11.5 g/dl (12.0-15.0) L 10/21/17 Pap Smear Negative 09/26/13 Obstetrics Ultrasound 12/07/17 Rubella IgG Antibody 45.9 IU/mL 10/21/17 RPR NONREACTIVE (NONREACTIVE) 10/21/17 Hep Bs Antigen 10/21/17 Chlam trachomat DNA PCR Negative (Negative) 10/12/17 N.gonorrhoeae DNA (PCR) Negative (Negative) 10/12/17 Rhogam given: No 08/13/13 Miscellaneous Test 10/21/17 Details: HIV: Urine Culture: Sequential Screen: NIPT Screen: Results [id number] Office Urine Glucose Negative Last Edit by Keena Clifford on 01/04/18 09:07 Office Urine Protein Negative Last Edit by Keena Clifford on 01/04/18 09:07 Assessment AND Plan Problems 1. Supervision of high risk in second trimester O09.92 PRR KERLINE 05/01/18 Boy. OSMAR Garza Dane 2. Hypertension affecting in second trimester O16.2 baseline labs, ekg, propanolol, growth us 32 weeks and nsts weekly on 3. BMI 40.0-44.9, adult Z68.41 growth and nsts 32 weeks on 4. Advanced maternal age (AMA) in genetic counseling options discussed and chose NIPT. growth us in third trimester 5. History of delivery Z98.891 plan RLTCS, not a good TOLAC candidate 6. 23 weeks gestation of Z3A.23 Pregancy History 3 Elective abortions 1 Hx Para 1 Spontaneous abortions Hx # Term Pregnancies Ectopic pregnancies Hx # Pregnancies Multiple births # of living children 1 Past Pregnancies Del. Date Name GA/Weeks Outcome Route Bth Weight Infant Gen Labor Lgth Anesthesia Del Locatn Provider FOB 08/11/[id number] - full termC-section9 lbs 5 ouncesMale epiduralWCHSEM Delivery Date: 08/11/13 On 10/12/17 @ 12:25 Bertha Hunt pushed 3 hours, prolonged labor and baby did not desend Plan Orders placed: none BPs well controlled with current propanolol Reviewed of labor precautions, movement/kick counts ACOG trimester education reviewed and updated See problem list details for updated plan of care Gestational age appropriate handout given RTO: 4 weeks Orders Orders: Coding Level of Care Code OB Routine Diagnoses Supervision of high risk in second trimester O09.92 Trimester: second trimester Hypertension affecting in second trimester O16.2 Trimester: second trimester BMI 40.0-44.9, adult Z68.41 Advanced maternal age (AMA) in History of delivery Z98.891 23 weeks gestation of Z3A.23 Weeks of gestation: 23 weeks 01/04/18 0918 <Electronically signed by Kia MEDRANO> Date Kia MEDRANO Cosigner Signature: Date (if applicable) CC: IRRIGATION FOREMAN OFFICE VISIT Observed: 12/08/2017 Status: F Source: [facility] REPORT 6:07 AM [facility] [address] [place] [address] OFFICE VISIT Date of Service: 12/07/17 MR#: [id number] Acct: [id number] Name: AMARA FIORE Rep #: [id number] : 1980 Provider: Bertha Hunt MD Age/Sex: 37/F Location[place] [facility] [place] Status: Signed Intake Vital Signs12/07/17 Height 5 ft 7 in 12/07/17 Weight: 290 lb 2 oz 12/07/17 Body Mass Index (BMI) 45.4 12/07/17 Blood Pressure 134/92 Intake Visit Reasons: 19 WEEK OB Marketing Reporting Analyst Required: No Is patient in pain?: No Allergies Penicillins Allergy (Verified 12/07/17 10:44) Rash Medications Sertraline HCl [Zoloft] 100 mg PO DAILY 07/30/15 [History Confirmed 12/07/17] Propranolol HCl [Inderal (Beta Emily)] 20 mg PO BID 11/21/15 [History Confirmed 12/07/17] vitamin,calcium,xklubdjm-rtzk-tlbkl acid tablet 1 tab PO QDAY 11/09/17 [History Confirmed 12/07/17] Last Menstral Period: 07/29/17 Zika: Zika virus screening: Negative : No PFSH PFSH Medical History Anxiety (Chronic) Hypertension (Chronic) Surgical History H/O section (2013) Family History Mother Diabetes Hypertension Father Diabetes Hypertension Social History household members: significant other, children housing: house number of children: 1 current occupational status: employed current occupation: [employer] pets and animals: Yes history of recent travel: No Smoking Status: Never smoker second hand exposure: No alcohol intake: current alcohol intake frequency: other details: not while substance use type: does not use what type of physical activity do you participate in: none seatbelt use: always do you feel safe at home: Yes Pregancy History 3 Elective abortions 1 Hx Para 1 Spontaneous abortions Past Pregnancies Del. DatName GA/WeeksOutcome Route [facility] Ame Daniels LgAnesthesDel LocaProviderFOB e ht en ia tn 08/11/13Kaden 40 live birC-sectio9 lbs 5 Male epiduralWCH SAM th - fuln ounces l term Delivery Date: 08/11/13 On 10/12/17 @ 12:25 Bertha Hunt pushed 3 hours, prolonged labor and baby did not desend HPI 19 WEEK OB: Details: AMARA FIORE is a 37 year old who presents for routine OB visit. OB Visit KERLINE Calculator Estimated Delivery Date 05/01/18 Based on LMP (certain) 07/25/17 Current WG 19w 3d Number 1 Expected Delivery Route/Plan RLTCS Specific Issue/Plans flu vaccine: [] minichart given: [] tdap vaccine: [] rhogam: [] LARC form signed: [] labor support person: [] pain management: [] cut cord/dad catch: [] : [] PP control planned: [] special requests: [] Initial Weight: 286 lb Date Weight BP Urine PrFHR FuHt Pres MoCTX DilationFetal StVisit NoProviderComments E ot v te GA G Effac lucose ed Visit Notes Visit Date: 12/07/17 no vb cramping reviewed us Bertha Hunt MD on 12/08/17 Visit Date: 11/09/17 co persistent n/v doesn't want any meds. Bertha Hunt MD on 11/09/17 Visit Date: 10/12/17 No visit notes to display ACOG First Trimester First Trimester: Desire for , Alcohol, Tobacco Cessation, Illicit/Recreational Drug/Substance Use, Intimate Partner Violence, Barriers to care, Unstable Housing, Communication Barriers, Environmental/Work Hazards, Anticipated Course of Care, Toxoplasmosis Precations, Use of Any medications, Sexual activity, Exercise, Dental Care, Sauna/Hot tub use, Seat Belt use, Childbirth classes/Hospital facilities, , Travel, Indications for US and Screening for Aneuploidy Diagnostics Diagnostics Labs Blood Type A POSITIVE 10/21/17 Antibody Screen NEGATIVE 10/21/17 Hct 35.3 % (37-47) L 10/21/17 Hgb 11.5 g/dl (12.0-15.0) L 10/21/17 Obstetrics Ultrasound 12/07/17 Rubella IgG Antibody 45.9 IU/mL 10/21/17 RPR NONREACTIVE (NONREACTIVE) 10/21/17 Hep Bs Antigen 10/21/17 Chlam trachomat DNA PCR Negative (Negative) 10/12/17 N.gonorrhoeae DNA (PCR) Negative (Negative) 10/12/17 Rhogam given: No 08/13/13 Miscellaneous Test 10/21/17 Details: HIV: Urine Culture: Sequential Screen: NIPT Screen: Results [id number] Office Urine Glucose Negative Last Edit by Dianne Gutierrez on 12/07/17 10:46 Office Urine Protein Negative Last Edit by Dianne Gutierrez on 12/07/17 10:46 Assessment AND Plan Problems 1. BMI 40.0-44.9, adult Z68.41 growth and nsts 32 weeks on 2. Advanced maternal age (AMA) in genetic counseling options discussed and chose NIPT. growth us in third trimester 3. Hypertension affecting in second trimester O16.2 baseline labs, ekg, propanolol, growth us 32 weeks and nsts weekly on 4. Supervision of high risk in second trimester O. PRR KERLINE 05/01/18 PC Greg Dane 5. 19 weeks gestation of Z3A.19 Pregancy History 3 Elective abortions 1 Hx Para 1 Spontaneous abortions Hx # Term Pregnancies Ectopic pregnancies Hx # Pregnancies Multiple births # of living children 1 Past Pregnancies Del. Date Name GA/Weeks Outcome Route Bth Weight Gen Labor Lgth Anesthesia Del [facility] Provider FOB 08/11/1386Jahfe14acek - full termC-section9 lbs 5 ouncesMale epiduralWCHSEM Delivery Date: 08/11/13 On 10/12/17 @ 12:25 Bertha Hunt pushed 3 hours, prolonged labor and baby did not desend Plan Orders placed: none ACOG trimester education reviewed and updated. see problem list details for updated plan management information. GA appropriate handout given. Orders Orders: Coding Level of Care Code OB Routine Diagnoses BMI 40.0-44.9, adult Z68.41 Advanced maternal age (AMA) in Hypertension affecting in second trimester O16.2 Trimester: second trimester Supervision of high risk in second trimester O Trimester: second trimester 19 weeks gestation of Z3A.19 Weeks of gestation: 19 weeks 12/08/17 0607 <Electronically signed by Bertha Hunt MD> Date Bertha Hunt MD Cosigner Signature: Date (if applicable) CC: OB ANATOMY SCAN Observed: 12/07/2017 Status: F Source: [facility] 8:22 AM [facility] REPOSITORY [facility] Imaging Services [address] [place] [address] OB Anatomy Scan MR#: [id number] Acct: [id number] Name: AMARA FIORE Rep #: [id number] : 1980 F 37 From: Wild Hale MD PCP: Blaine Padgett DO Status: REG CLI Study: OB Anatomy Scan Date of Exam: 12/07/17 Exam# [id number] Ordering Dr: Bertha Hunt MD STUDY: SECOND AND THIRD TRIMESTER OBSTETRICAL ULTRASOUND REASON FOR EXAM: Female, 37 years old. Routine survey. LMP: 07/25/2017 TECHNIQUE: Transabdominal PRIOR ULTRASOUND: None. FINDINGS: There is a single intrauterine fetus. The fetus is in a breech presentation. There is demonstrated cardiac activity with a heart rate of 143 bpm. There is a normal amniotic fluid volume. The largest amniotic fluid pocket measures 6.5 x 3.7 cm. The placenta is posterior in location and is not low lying. There are Grade 0 placental changes. The cervix measures 4.1 cm in length. The bilateral adnexal regions are normal. BIOMETRY: BPD: 4.54 cm: 19 weeks, 6 days HC: 17.07 cm: 19 weeks, 5 days AC: 14.70 cm: 20 weeks, 0 days FL: 2.99 cm: 19 weeks, 2 days age by current US: 19 weeks, 5 days. KERLINE by current US: 04/28/2018. Estimated weight: 304 grams, +/- 44 grams, 67 %. Age by LMP: 19 weeks, 2 days. KERLINE by LMP: 05/01/2018. ANATOMY: Gender: Indeterminant Cranium: Normal lateral ventricles. Normal choroid plexus. Normal cerebellum. Normal cisterna magna. Normal face, nose and lips. Chest: Normal 4-chamber heart. Abdomen/Pelvis: Normal diaphragm. Normal stomach. Normal abdominal wall. Normal cord insertion. Normal 3 vessel cord. Normal kidneys. Normal bladder. Spine: Normal cervical spine. Normal thoracic spine. Normal lumbar spine. Normal sacrum. Extremities: Normal bilateral upper extremities. Normal bilateral lower extremities. US/OB Anatomy Scan IMPRESSION: Single live intrauterine at 19 weeks, 5 days by current ultrasound. KERLINE of 04/28/2018. Heart rate of 143 bpm. No suspicious sonographic findings, presentation on current study is breech Electronically Signed: Nickolas Hale MD at 10:42 EDT , Service support , CC: Blaine Padgett DO; Bertha Hunt MD Mix Maker: Signed [employer] OFFICE VISIT Observed: 11/11/2017 Status: F Source: [place] [facility] REPORT 12:57 AM [facility] [address] [place] [address] OFFICE VISIT Date of Service: 11/09/17 MR#: [id number] Acct: [id number] Name: AMARA FIORE Rep #: [id number] : 1980 Provider: Bertha Hunt MD Age/Sex: 36/F [place] [facility] [place] Status: Signed Intake Vital Signs11/09/17 Height 5 ft 7 in 11/09/17 Weight: 287 lb 4 oz 11/09/17 Body Mass Index (BMI) 44.9 11/09/17 Blood Pressure 122/88 Intake Visit Reasons: 15 weeks Chief Complaint: est ob Marketing Reporting Analyst Required: No Is patient in pain?: No Allergies Penicillins Allergy (Verified 11/09/17 15:49) Rash Medications Sertraline HCl [Zoloft] 100 mg PO DAILY 07/30/15 [History Confirmed 10/12/17] Propranolol HCl [Inderal (Beta Emily)] 20 mg PO BID 11/21/15 [History Confirmed 10/12/17] vitamin,calcium,pzdepgdc-urtx-nhlqz acid tablet 1 tab PO QDAY 11/09/17 [History Confirmed 11/09/17] Last Menstral Period: 07/29/17 Zika: Zika virus screening: Negative : No PFSH PFSH Medical History Anxiety (Chronic) Hypertension (Chronic) Surgical History H/O section (2013) Family History Mother Diabetes Hypertension Father Diabetes Hypertension Social History household members: significant other, children housing: house number of children: 1 current occupational status: employed current occupation: [employer] pets and animals: Yes history of recent travel: No Smoking Status: Never smoker second hand exposure: No alcohol intake: current alcohol intake frequency: other details: not while substance use type: does not use what type of physical activity do you participate in: none seatbelt use: always do you feel safe at home: Yes Pregancy History 3 Elective abortions 1 Hx Para 1 Spontaneous abortions Past Pregnancies Del. DatName GA/WeeksOutcome [facility] LgAnestheORel LocaProviderFOB e ht en th ia tn 08/11/13Kaden 40 live birC-sectio9 lbs 5 Male epiduralWCH SAM th - fuln ounces l term Delivery Date: 08/11/13 On 10/12/17 @ 12:25 Bertha Hunt pushed 3 hours, prolonged labor and baby did not desend HPI 15 weeks: Details: AMARA FIORE is a 36 year old who presents for routine OB visit. OB Visit KERLINE Calculator Estimated Delivery Date 05/01/18 Based on LMP (certain) 07/25/17 Current WG 15w 4d Number 1 Expected Delivery Route/Plan RLTCS Specific Issue/Plans flu vaccine: [] minichart given: [] tdap vaccine: [] rhogam: [] LARC form signed: [] labor support person: [] pain management: [] cut cord/dad catch: [] : [] PP control planned: [] special requests: [] Initial Weight: 286 lb Date Weight BP Urine PrFHR FuHt Pres MoCTX DilationFetal StVisit NoProviderComments E ot v te GA G Effac lucose ed Visit Notes Visit Date: 11/09/17 co persistent n/v doesn't want any meds. Bertha Hunt MD on 11/09/17 Visit Date: 10/12/17 No visit notes to display ACOG First Trimester First Trimester: Desire for , Alcohol, Tobacco Cessation, Illicit/Recreational Drug/Substance Use, Intimate Partner Violence, Barriers to care, Unstable Housing, Communication Barriers, Environmental/Work Hazards, Anticipated Course of Care, Toxoplasmosis Precations, Use of Any medications, Sexual activity, Exercise, Dental Care, Sauna/Hot tub use, Seat Belt use, Childbirth classes/Hospital facilities, , Travel, Indications for US and Screening for Aneuploidy Diagnostics Diagnostics Labs Blood Type A POSITIVE 10/21/17 Antibody Screen NEGATIVE 10/21/17 Hct 35.3 % (37-47) L 10/21/17 Hgb 11.5 g/dl (12.0-15.0) L 10/21/17 Rubella IgG Antibody 45.9 IU/mL 10/21/17 RPR NONREACTIVE (NONREACTIVE) 10/21/17 Hep Bs Antigen 10/21/17 Chlam trachomat DNA PCR Negative (Negative) 10/12/17 N.gonorrhoeae DNA (PCR) Negative (Negative) 10/12/17 Rhogam given: No 08/13/13 Miscellaneous Test Pending 10/21/17 Details: HIV: Urine Culture: Sequential Screen: NIPT Screen: Results [id number] Office Urine Glucose Negative Last Edit by Keena Clifford on 11/09/17 15:54 Office Urine Protein Negative Last Edit by Keena Clifford on 11/09/17 15:54 Assessment AND Plan Problems 1. Supervision of high risk in second trimester O09.92 PRR KERLINE 05/01/18 OSMAR Garza Dane 2. Hypertension affecting in second trimester O16.2 baseline labs, ekg, propanolol, growth us 32 weeks and nsts weekly on 3. BMI 40.0-44.9, adult Z68.41 growth and nsts 32 weeks on 4. Advanced maternal age (AMA) in genetic counseling options discussed and chose NIPT. growth us in third trimester Plan Orders placed: obtain nipt results ACOG trimester education reviewed and updated. see problem list details for updated plan management information. GA appropriate handout given. Orders Orders: Coding Level of Care Code OB Routine Diagnoses Supervision of high risk in second trimester O09.92 Trimester: second trimester Hypertension affecting in second trimester O16.2 Trimester: second trimester BMI 40.0-44.9, adult Z68.41 Advanced maternal age (AMA) in 11/11/17 0057 <Electronically signed by Bertha Hunt MD> Date Bertha Hunt MD Cosigner Signature: Date (if applicable) CC: DOWNTIME REPORT Observed: 11/03/2017 Status: F Source: [facility] 1:08 PM [facility] REPOSITORY [facility] Medical Records Department [address] [place] [address] Downtime Report MR#: [id number] Acct: [id number] Name: AMARA FIORE Rep #: [id number] : 1980 36 From: London Connors PCP: Blaine Padgett DO Status: REG CLI This patient was seen during an EMR downtime October 17, 2017 - October 24, 2017. This patient may have a combination of paper and electronic documentation or all paper documentation. All documentation is viewable within the e-chart portion of [employer] for each patient visit. MISCELLANEOUS LAB Collected: 10/21/2017 Status: F Source: [place] PROCEDURE 10:57 AM [facility] REPOSITORY Order Comment: Test(s) Ordered: INFORMASEQ WITH X,Y ANALYSIS TYPE CODE TESTS RESULT OUT OF RANGE REFERENCE UNITS LAB L801.1541 Normal [facility] LAB TEST Result Comment: Scanned image report available in EMR Performed By: #### L801.1541 #### [facility] [address] [place], [place], [address] TYPE AND SCREEN Collected: 10/21/2017 Status: F Source: [place] [facility] 10:48 AM [facility] REPOSITORY Order Comment: Reason for Type AND Screen/Red Cells: TYPE CODE TESTS RESULT OUT OF RANGE REFERENCE UNITS LAB B10.0800 A Normal BLOOD TYPE GEL POSITIVE LAB B100.4000 Normal Antibody NEGATIVE Screen Performed By: #### B101.7450 #### [facility]. [place], [place], [id number] #### L3100.0390 #### [facility] (refer to report for specific site) refer to report for address and phone number HEPATITIS B SURFACE Collected: 10/21/2017 Status: F [facility] REPOS[facility] TYPE CODE TESTS RESULT OUT OF RANGE REFERENCE UNITS LAB L3100.0400 Normal HB SURF AG Result Comment: TEST RESULT LIMITS HBsAg Screen Negative Negative TESTING PERFORMED AT [facility]. ORIGINAL REPORT ON FILE IN LAB CONTAINS ADDITIONAL TEST SITE INFORMATION. Performed By: #### B101.7450 #### [facility]. [place], [place], [id number] #### L3100.0390 #### [facility] (refer to report for specific site) refer to report for address and phone number CBC W/DIFF, AUTOMATED Collected: 10/21/2017 Status: F Source: [place] [facility] 10:48 AM [facility] REPOSITORY TYPE CODE TESTS RESULT OUT OF RANGE REFERENCE UNITS LAB L100.1000 4.4-11.0 K/mm3 Normal WBC 6.3 LAB L100.1200 4.2-5.4 M/mm3 Low RBC 3.94 LAB L100.1300 12.0-15.0 g/dl Low HGB 11.5 LAB L100.1400 37-47 % Low HCT 35.3 LAB L100.1500 81-99 fL Normal MCV 89.6 LAB L100.1600 27.0-32.0 pg Normal MCH 29.2 LAB L100.1700 32-36 g/gl Normal MCHC 32.6 LAB L100.1810 11.6-14.6 % Normal RDW CV 13.3 LAB L100.1820 35.1-43.9 fl Normal RDW SD 43.0 LAB L100.1900 150-450 K/mm3 Normal PLT 281 LAB L100.2000 6.2-12.0 fl Normal MPV 10.3 LAB L100.2100 47-70 % High NEUT% 73.4 LAB L100.2200 19-41 % Normal LY% 20.0 LAB L100.2300 0-10 % Normal MONO% 5.6 LAB L100.2400 0-5 % Normal EO% 0.6 LAB L100.2500 0-1 % Normal BASO% 0.2 LAB L100.2550 0.0-0.9 % Normal IM GRAN % 0.200 Result Comment: IG% - Immature Granulocytes (promyelocytes, myelocytes and metamyelocytes) > 1% indicates that a LEFT SHIFT is Present. LAB L100.2620 2.0-7.7 X10 3/uL Normal Absolute Neut 4.5 LAB L100.2720 0.83-4.51 X10 3/ul Normal Absolute Lymph 1.26 Performed By: #### L100.0100 #### [facility] [address] [place], [place], [address] COMPREHENSIVE METABOLIC Collected: 10/21/2017 Status: F Source: [facility] 10:48 AM [facility] REPOSITORY Order Comment: 82 TYPE CODE TESTS RESULT OUT OF RANGE REFERENCE UNITS LAB L501.0100 74-106 mg/dL Normal GLU 104 Result Comment: Fasting Glucose result from 100 to 125 mg/dL suggests IMPAIRED HOMEOSTASIS per A.D.A. criteria. Please note revised GLUCOSE reference range effective 2017. LAB L501.1000 7-18 mg/dL Normal BUN 10 LAB L501.1100 0.55-1.02 mg/dL Normal CREAT,SERUM 0.64 Result Comment: The validity of the calculated GFR AND GFRAA in patients over 70 years has not been determined. Clinical correlation is essential. LAB L501.1110 >60 mL/min Normal EST GFR 112 LAB L501.1115 >60 mL/min Normal EST GFR - AA 136 LAB L501.1300 10-20 RATIO Normal BUN/CRE 15.6 LAB L501.1500 6.4-8.2 g/dL Normal T PROT 7.1 LAB L501.1800 3.2-5.0 g/dL Low ALB 3.1 LAB L501.1950 2.2-4.2 g/dL Normal GLOB 4.0 LAB L501.2000 0.9-2.4 RATIO Low A/G 0.8 LAB L501.2200 8.5-10.1 mg/dL Normal CA 8.5 LAB L501.4100 15-37 U/L Low AST 7 LAB L501.4305 45-117 U/L Normal ALK P 87 LAB L501.4405 13-56 U/L Low ALT 12 LAB L501.4600 0.20-1.00 mg/dL Normal T BILI 0.30 LAB L501.5300 136-145 mmol/L Normal NA 140 LAB L501.5600 3.5-5.1 mmol/L Normal K 3.7 LAB L501.5900 98-107 mmol/L Normal CL 107 LAB L501.6100 21.0-32.0 mmol/L Normal CO2 24.0 LAB L501.6200 5-15 Normal GAP 9 Performed By: #### L500.4050 #### [facility] [address] [facility] [place], [address] RUBELLA IGG Collected: 10/21/2017 Status: F Source: [place] [facility] 10:48 AM [facility] REPOSITORY TYPE CODE TESTS RESULT OUT OF RANGE REFERENCE UNITS LAB L509.4000 IU/mL Normal Rubella IgG 45.9 Result Comment: Antibody results Interpretation of Immune Status < 5 IU/ml Presumed Non-immune 5 - < 10 IU/ml Equivocal > or = 10 IU/ml Presumed Immune Performed By: #### L509.4000, L3890.6005, L700.5000 #### [facility] [address] [place], [address] HIV - [facility] Collected: 10/21/2017 Status: F Source: [facility] 10:48 AM [facility] REPOSITORY TYPE CODE TESTS RESULT OUT OF RANGE REFERENCE UNITS LAB L3890.6005 Nonreactive Normal HIV - [facility] Non-Reactive Performed By: #### L509.4000, L3890.6005, L700.5000 #### [facility] [address] [facility] [address] [place], [address] RAPID PLASMIN REAGIN Collected: 10/21/2017 Status: F Source: [facility] (RPR) 10:48 AM [facility] REPOSITORY TYPE CODE TESTS RESULT OUT OF REFERENCE UNITS RANGE LAB L700.5000 NONREACTIVE NONREACTIVE Normal RPR Performed By: #### L509.4000, L3890.6005, L700.5000 #### [facility] [place], [address] PROTEIN+CREATININE Collected: Status: F Source: [place] RATIO,URINE 10/12/2017 5:24 PM [facility] REPOSITORY TYPE CODE TESTS RESULT OUT OF RANGE REFERENCE UNITS LAB L501.1200 NO RANGE EST. mg/dL Normal UR CREAT 264.00 LAB L501.1930 <11.9 mg/dL High 16.3 PROTEIN,UR.R AN. LAB L501.1940 0-200 mg/g CRE Normal PROT:CRE 62 RATIO Performed By: #### L501.0900, L8200.2000, M100.0650 #### [facility] [place], [address] CT/NG [facility] BY PCR Collected: 10/12/2017 Status: F Source: [facility] 5:24 PM [facility] REPOSITORY TYPE CODE TESTS RESULT OUT OF RANGE REFERENCE UNITS LAB L8200.2100 Negative Normal Chlam Negative Trac PCR LAB L8200.2200 Negative Normal NG by Negative PCR Performed By: #### L501.0900, L8200.2000, M100.0650 #### [facility] [address] [facility] [address] [place], [address] Observed: 10/12/2017 Status: F Source: [facility] CULTURE, URINE 5:24 PM [facility] REPOSITORY Urine Culture Culture exhibits no growth. Performed By: #### L501.0900, L8200.2000, M100.0650 #### [facility] [address] [place], [address] IRRIGATION FOREMAN OFFICE VISIT Observed: 10/12/2017 Status: F Source: [facility] REPORT 1:13 PM [facility] RE[facility]ORY [facility] [address] [place] [address] OFFICE VISIT Date of Service: 10/12/17 MR#: [id number] Acct: [id number] Name: AMARA FIORE Rep #: [id number] : 1980 Provider: Bertha Hunt MD Age/Sex: 36/F [place] [facility] [place] Status: Signed Intake Vital Signs10/12/17 Height 5 ft 7 in 10/12/17 Weight: 286 lb 4 oz 10/12/17 Body Mass Index (BMI) 44.8 10/12/17 Blood Pressure 129/86 Intake Visit Reasons: NOB - LMP 07/29 Accompanied by: Self Is patient in pain?: No Allergies Penicillins Allergy (Verified 11/21/15 17:36) Rash Medications Sertraline HCl [Zoloft] 100 mg PO DAILY 07/30/15 [History Confirmed 10/12/17] Propranolol HCl [Inderal (Beta Emily)] 20 mg PO BID 11/21/15 [History Confirmed 10/12/17] Last Menstral Period: 07/29/17 Zika: Zika virus screening: Negative : No PFSH PFSH Medical History Anxiety (Chronic) Hypertension (Chronic) Surgical History H/O section (Inactive 2013) Family History Mother Diabetes Hypertension Father Diabetes Hypertension Social History household members: significant other, children housing: house number of children: 1 current occupational status: employed current occupation: RN [employer] pets and animals: Yes history of recent travel: No Smoking Status: Never smoker second hand exposure: No alcohol intake: current alcohol intake frequency: other details: not while substance use type: does not use what type of physical activity do you participate in: none seatbelt use: always do you feel safe at home: Yes Pregancy History 3 Elective abortions 1 Hx Para 1 Spontaneous abortions Past Pregnancies Del. DatName GA/WeeksOutcome Route Bt WeigInfant GLabor LgAnesthesDel LocaProviderFOB e ht en ia tn 08/11/13Kaden 40 live birC-sectio9 lbs 5 Male epiduralWCH SAM th - fuln ounces l term Delivery Date: 08/11/13 On 10/12/17 @ 12:25 Bertha Hunt pushed 3 hours, prolonged labor and baby did not desend HPI NOB - LMP 07/29: Details: AMARA FIORE is a 36 year old who presents for New OB visit. OB Visit KERLINE Calculator Estimated Delivery Date 05/01/18 Based on LMP (certain) 07/25/17 Current WG 11w 2d Number 1 Expected Delivery Route/Plan RLTCS Specific Issue/Plans flu vaccine: [] minichart given: [] tdap vaccine: [] rhogam: [] LARC form signed: [] labor support person: [] pain management: [] cut cord/dad catch: [] : [] PP control planned: [] special requests: [] Initial Weight: Not Recorded Date Weight BP Urine PrFHR FuHt Pres MoCTX DilationFetal StVisit NoProviderComments E ot v te GA G Effac lucose ed Menstrual History Last Menstral Period: 07/29/17 Reported LMP: definite Normal amount/duration: Yes On hormonal BC at conception: No Antepartum Record Genetic Screening: Congenital Heart Defect: Other, Neural Tube Defect: Other, Hemoglobinopathy Or Carrier: Other, Cystic Fibrosis: Other, Chromosome Abnormality: Other, Prashant-Sachs: Other, Hemophilia: Other, Intellectual Disability/Autism: Other, Recurrent Loss/Stillbirth: Other, Other Structural Defect: Other, Other Genetic Disease: Other, Maternal Metabolic Disorder: Other Infection History: Live with someone with TB or Exposed to TB: No, Patient or Partner has history of Genital Herpes: No, Rash or Viral illness since last mentrual period: No, Prior GBS-Infected child: No, History of STD: No, HIV Infection: No, History of Hepatitis: No, Recent travel outside of [place]: No, Concern for Hep exposure: No, Varicella immune: Yes Medical History Medical History: Positive: Hypertension, Depression/ depression, 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), Operations/hospitalizations (cs), Negative: Diabetes, Heart disease, Auto-immune disorder, Kidney disease/UTI, Neurologic/epilepsy, Psychiatric, Hepatitis/liver disease, Varicosities/phlebitis, Thyroid dysfunction, Trauma/domestic violence, History of blood transfusions, D (Rh) Sensitized, Pulmonary (e.g.,TB,Asthma), Seasonal allergies, Drug/latex allergies/reactions, Breast, Anesthetic complications, History of abnormal pap, Uterine anomaly/zainab, Infertility, Anti-retroviral treatment, Relevant family history, Other ACOG First Trimester First Trimester: Desire for , Alcohol, Tobacco Cessation, Illicit/Recreational Drug/Substance Use, Intimate Partner Violence, Barriers to care, Unstable Housing, Communication Barriers, Environmental/Work Hazards, Anticipated Course of Care, Nurtrition and weight gain, Toxoplasmosis Precations, Use of Any medications, Sexual activity, Exercise, Dental Care, Sauna/Hot tub use, Seat Belt use, Childbirth classes/Hospital facilities, , Travel, Indications for US and Screening for Aneuploidy ROS Const Denies fever(s), Reports system reviewed and no additional complaints, except as docu, Reports fatigue Eyes Reports system reviewed and no additional complaints, except as docu ENT Reports system reviewed and no additional complaints, except as docu Card Denies chest pain, Denies shortness of breath Resp Reports system reviewed and no additional complaints, except as docu, Denies shortness of breath, Denies cough GI Reports nausea, Denies abdominal pain Reports system reviewed and no additional complaints, except as docu Musc Reports system reviewed and no additional complaints, except as docu Skin/Breast Reports system reviewed and no additional complaints, except as docu Neuro Yes system reviewed and no additional complaints, except as docu Psych Reports system reviewed and no additional complaints, except as docu Endo Reports fatigue, Reports system reviewed and no additional complaints, except as docu Exam Const General: healthy appearing, comfortable, no acute distress Orientation: alert HENMT Head: normal to inspection, atraumatic, normocephalic Ears: external ears normal, hearing grossly normal bilaterally Nose: nares normal, external nose normal Mouth: oral mucosae normal Teeth and gingiva: dentition normal Eyes General: appearance normal, both eyes and all related structures Neck Neck: no lymphadenopathy, supple, normal visual inspection Thyroid: thyroid normal Chest Chest palpation AND inspection: normal inspection of the chest Breast inspection: normal inspection of the breasts, normal inspection of the axillae Breast palpation: normal palpation of the breasts, normal palpation of the axillae Resp Effort AND Inspection: normal respiratory effort GI Inspection: normal to inspection Palpation: soft, no hepatosplenomegaly General: bladder normal to palpation External Female Exam: normal external appearance, normal appearance of the urethra Urethra: normal appearance of the urethra Speculum Exam - Vagina: normal appearance of the vagina, normal vaginal discharge Speculum Exam - Cervix: normal appearance of the cervix Bimanual Exam- Vagina AND Uterus: bladder normal to palpation, normal bimanual exam, uterus non-tender, other Bimanual Exam- Adnexa, other: adnexae non-tender Skin General: no rashes or lesions noted Neuro Motor: muscle tone normal throughout, no movement abnormalities noted Extrem General: normal to inspection, full ROM Assessment AND Plan Problems 1. Supervision of high risk in third trimester O KERLINE 05/01/18 OSMAR Garza Dane 2. BMI 40.0-44.9, adult Z68.41 growth and nsts 32 weeks on 3. Hypertension affecting in third trimester O16.3 baseline labs, ekg, propanolol, growth us 32 weeks and nsts weekly on 4. Advanced maternal age (AMA) in genetic counseling options discussed and chose NIPT. growth us in third trimester Plan Patient oriented to practice and discussed care expectations and screenings. ACOG book offered to patient. labs and 19-20 week anatomy ultrasound ordered. see problem list details for plan information. Genetic screening offered to patient and patient chose: genetic screening NIPT Supplemental Info ACOG book given and patient encouraged to read about nutrition, exercise, weight gain, and food avoidance in . Coding Level of Care Code OB Routine Diagnoses Supervision of high risk in third trimester O Trimester: third trimester BMI 40.0-44.9, adult Z68.41 Hypertension affecting in third trimester O16.3 Trimester: third trimester Advanced maternal age (AMA) in 10/12/17 1313 <Electronically signed by Bertha Hunt MD> Date Bertha Hunt MD Cosigner Signature: Date (if applicable) CC: PAP IG HPV APTIMA Collected: 10/12/2017 Status: F Source: [place] ,45 12:00 PM [facility] REPOSITORY Order Comment: CYTOLOGY INFORMATION: - CLINICAL INFORMATION: - DATE LMP/MENOPAUSE: 07/19/17 LMP - COLLECTION VIAL: Thin Prep Vial - ELASTIC ASSEMBLER SOURCE: CERVICAL - COLLECTION TECHNIQUE: CERVIX BROOM ONLY Specimen Comment: [id number] Specimen Comment: No. of containers..01 ThinPrep Vial TYPE CODE TESTS RESULT OUT OF RANGE REFERENCE UNITS LAB L7400.0800 . Normal DIAGN Comment Result Comment: NEGATIVE FOR INTRAEPITHELIAL LESION AND MALIGNANCY. LAB L7400.0900 . Normal ADEQ Comment Result Comment: Satisfactory for evaluation. No endocervical component is identified. An endocervical component is not commonly seen in the patient. LAB L7400.1400 . Normal PERFORM Comment Result Comment: Alis Carranza, Sheet Metal Foreman (ASCP) LAB L7400.2575 . Normal TEST METHOD Comment Result Comment: This liquid based ThinPrep(R) pap test was screened with the use of an image guided system. LAB L7400.2600 . Normal . COMM LAB L7400.2700 . Normal PAPSMR Comment Result Comment: The Pap smear is a screening test designed to aid in the detection of premalignant and malignant conditions of the uterine cervix. It is not a diagnostic procedure and should not be used as the sole means of detecting cervical cancer. Both false-positive and false-negative reports do occur. LAB L7400.2760 Negative Normal HPV APTIMA, Negative HR Result Comment: This test detects fourteen high-risk HPV types (16/18/31/33/35/39/45/ 51/52/56/58/59/66/68) without differentiation. Performed at: - [facility] [address] [id number] Tour Bus Driver/Guide: Brinda Trent MD, Phone: [phone] Performed at: =G - [facility] [address] [place], [place] [id number] Tour Bus Driver/Guide: Brinda Trent MD, Phone: [phone] Performed By: #### L7400.0280 #### [facility] (refer to report for specific site) refer to report for address and phone number ALLERGIES ALLERGIES DATE TYPE / CODE NAME / CODE REACTION SEVERITY SOURCE 05/02/2018 Drug Penicillins/ Rash Unknown [facility] Allergy/4160 [id number]([facility] 36435(SNOMED XNORM) Repository CT) ENCOUNTERS ENCOUNTERS ADMIT/DISCHARGE ACCOUNT ADMITTING ENCOUNTER LOCATION SOURCE NUMBER CLASS 05/02/2018/05/02/20 [id number] Ambulatory BMSBuilding:Marbella Enrique 18 MS.[facility] Repository 04/17/2018/04/19/20 [id number] Rhianna, Inpatient [place] [address] Bertha Encounter [facility] ing:WPRoom: Repository SD251Lyy: 1 04/17/2018 [id number] Rhianna, Ambulatory BMSBuilding:Marbella Stone MS.CF.[facility] Repository 04/17/2018 [id number] Rhianna, Ambulatory BMSBuilding:Marbella Stone MS.CF.[facility] Repository 04/17/2018 [id number] Rhianna, Ambulatory BMSBuilding:Marbella Stone MS.CF.[facility] Repository 04/12/2018/04/12/20 [id number] Ambulatory BMSBuilding:B [place] 18 MS.[facility] Repository 04/11/2018/04/11/20 [id number] Ambulatory [address] ing:WPOUTRoom Repository : WP012 04/05/2018 [id number] Ambulatory [facility] ing:LABSPEC Repository 04/05/2018/04/05/20 [id number] Ambulatory BMSBuilding:B [place] 18 MS.[facility] Hospital Repository 03/29/2018/03/29/20 [id number] Ambulatory BMSBuilding:B [place] 18 [place].[facility] Repository 03/23/2018 [id number] Ambulatory [facility] Hospital ing:LAB Repository 03/23/2018/03/23/20 [id number] Ambulatory BMSBuilding:B [place] 18 [place].[facility] Repository 03/13/2018 [id number] Ambulatory Building:[facility] Repository 03/08/2018/03/08/20 [id number] Ambulatory BMSBuilding:B [place] 18 MS.[facility] Repository 02/22/2018/02/23/20 [id number] Ambulatory BMSBuilding:B [place] 18 [place].[facility] Repository 02/08/2018 [id number] [facility] Repository 02/08/2018/02/09/20 [id number] Ambulatory BMSBuilding:B [place] 18 MS.[facility] Repository 01/25/2018 [id number] [facility] Repository 01/25/2018/01/26/20 [id number] Ambulatory BMSBuilding:B [place] 18 MS.[facility] Hospital Repository 01/04/2018/01/05/20 [id number] Ambulatory BMSBuilding:B [place] 18 [place].[facility] Hospital Repository 12/07/2017/12/08/19 [id number] Ambulatory BMSBuilding:B [place] 18 [place].[facility] Repository 12/07/2017 [id number] Ambulatory [facility] ing:OPUS Repository 11/09/2017/11/10/19 [id number] Ambulatory BMSBuilding:B [place] 18 [place].[facility] Repository 10/21/2017 [id number] Ambulatory [facility] ing:LAB Repository 10/12/2017 [id number] Ambulatory [facility] ing:LABSPEC Repository 10/12/2017/10/13/19 [id number] Ambulatory BMSBuilding:B [place] 18 [place].[facility] Repository PAYERS PAYERS ENCOUNTER GUARANTOR PAYER SUBSCRIBER SOURCE 05/02/2018 AMARA D Primary AMARA D [place] [id number] Insurance:ANTHEMPolic MCCULLOUGHDOB: Community [place] y Number: [id number] [id number] Repository [address]Gti: (330) Date:8667-96-85DO [phone] () [id number] [place] [address] 18347BK: 05/02/2018 Secondary NOT GIVENUNK [place] Insurance:SELF PAY [facility] Number: Effective Repository Date:2018-05-02 04/17/2018 AMARA D Primary AMARA D [place] [id number] Insurance:ANTHEMPolic MCCULLOUGHDOB: Community [place] y Number: [id number], [place] [id number] Repository [address]Xsu: (330) Date:4892-50-55XY [phone] () 092709ZOCFSIX, [place] [address]JI: 04/17/2018 Secondary NOT GIVENUNK [place] Insurance:SELF PAY [facility] Number: Effective Repository Date:2018-02-14 04/17/2018 AMARA D Primary AMARA D [place] [id number] Insurance:ANTHEMPolic MCCULLOUGHDOB: Community [place] y Number: [id number], [place] [id number] Repository [address]Odm: (330) Date:1444-82-48YJ [phone] () [id number] [place] [address]UZ: 04/17/2018 Secondary NOT GIVENUNK [place] Insurance:SELF PAY [facility] Number: Effective Repository Date:2018-04-17 04/17/2018 AMARA D Primary AMARA D [place] [id number] Insurance:ANTHEMPolic MCCULLOUGHDOB: Community [place] y Number: [id number], [place] [id number] Repository [address]Ahh: (330) Date:4733-11-06AR [phone] () 120549FGBXYGK, [place] [address]AJ: 04/17/2018 Secondary NOT GIVENUNK [place] Insurance:SELF PAY [facility] Number: Effective Repository Date:2018-04-17 04/17/2018 AMARA D Primary AMARA D [place] [id number] Insurance:ANTHEMPolic MCCULLOUGHDOB: Community [place] y Number: [id number], [place] [id number] Repository [address]Wcs: (330) Date:4730-67-71DD [phone] () [id number], [place] [address]EQ: 04/17/2018 Secondary NOT GIVENUNK [place] Insurance:SELF PAY [facility] Number: Effective Repository Date:2018-04-17 04/12/2018 AMARA D Primary AMARA D [place] [id number] Insurance:ANTHEMPolic MCCULLOUGHDOB: Community [place] y Number: [id number], [place] [id number] Repository [address]Sys: (330) Date:5944-39-07OW [phone] () 653038QCKROOA, [place] [address]HK: 04/12/2018 Secondary NOT GIVENUNK [place] Insurance:SELF PAY [facility] Number: Effective Repository Date:2018-01-04 04/11/2018 AMARA D Primary AMARA D [place] [id number] Insurance:ANTHEMPolic MCCULLOUGHDOB: Community [place] y Number: [id number], [place] [id number] Repository [address]Sum: (330) Date:9055-44-91NK [phone] () 247348TJUOUHJ, [place] [address]CF: 04/11/2018 Secondary NOT GIVENUNK [place] Insurance:SELF PAY [facility] Number: Effective Repository Date:2018-04-11 04/05/2018 AMARA D Primary AMARA D [place] [id number] Insurance:ANTHEMPolic MCCULLOUGHDOB: Community [place] y Number: [id number], [place] [id number] Repository [address]Iqh: (330) Date:7684-98-77UK [phone] () [address] [place] [address] 87[address]DR: 04/05/2018 Secondary NOT GIVENUNK [place] Insurance:SELF PAY [facility] Number: Effective Repository Date:2018-04-05 04/05/2018 AMARA D Primary AMARA D [place] [id number] Insurance:ANTHEMPolic MCCULLOUGHDOB: Community [place] y Number: [id number], [place] [id number] Repository 50[address]Daw: (330) Date:2901-43-88FH [phone] () [address] [place] [address]VX: 04/05/2018 Secondary NOT GIVENUNK [place] Insurance:SELF PAY [facility] Number: Effective Repository Date:2018-01-04 03/29/2018 AMARA D Primary AMARA D [place] [id number] Insurance:ANTHEMPolic MCCULLOUGHDOB: Community [place] y Number: [id number], [place] [id number] Repository 10[address]Uql: (330) Date:3654-68-78LK [phone] () 522354LRLYRRL, [place] [address]VO: 03/29/2018 Secondary NOT GIVENUNK [place] Insurance:SELF PAY [facility] Number: Effective Repository Date:2018-01-04 03/23/2018 AMARA D Primary AMARA D [place] [id number] Insurance:ANTHEMPolic MCCULLOUGHDOB: Community [place] y Number: [id number], [place] [id number] Repository [address]36[address]Uzs: (330) Date:2673-31-59AM [phone] () [place] [address]ST: 03/23/2018 Secondary NOT GIVENUNK [place] Insurance:SELF PAY [facility] Number: Effective Repository Date:2018-03-23 03/23/2018 AMARA D Primary AMARA D [place] [id number] Insurance:ANTHEMPolic MCCULLOUGHDOB: Community [place] y Number: [id number], [place] [id number] Repository [address]12[address]Umt: (573) Date:3803-72-30FG [phone] () [id number], [place] [address]HH: 03/23/2018 Secondary NOT GIVENUNK [place] Insurance:SELF PAY [facility] Number: Effective Repository Date:2018-01-04 03/13/2018 AMARA Primary AMARA [facility] MCCOLLOUGHDOB: Insurance:ANTHEMPolic MCCOLLOUGHDOB: Hospital y Number: [id number] Repository D[place] [id number] [place], [place] Date: [place], [place] [address]Aub: (330) [phone] () 03/08/2018 AMARA D Primary AMARA D [place] [id number] Insurance:ANTHEMPolic MCCULLOUGHDOB: Community [place] y Number: [id number], [place] [id number] Repository [address]Pnn: (330) Date:3802-74-06QB [phone] () [id number] KRAFT [address]DF: 03/08/2018 Secondary NOT GIVENUNK [place] Insurance:SELF PAY [facility] Number: Effective Repository Date:2018-01-04 02/22/2018 AMARA D Primary AMARA D [place] [id number] Insurance:ANTHEMPolic MCCULLOUGHDOB: Community [place] y Number: [id number], [place] [id number] Repository [address]Xjl: (330) Date:1540-36-95KL [phone] () [place] [address]JG: 02/22/2018 Secondary NOT GIVENUNK [place] Insurance:SELF PAY [facility] Number: Effective Repository Date:2018-02-22 02/08/2018 AMARA D Primary AMARA D [place] [id number] Insurance:ANTHEMPolic MCCULLOUGHDOB: Community [place] y Number: [id number], [place] [id number] Repository [address]Ydw: (330) Date:2434-83-97UT [phone] () 241458VRBONIT, [place] [address]DK: 02/08/2018 Secondary NOT GIVENUNK [place] Insurance:SELF PAY [facility] Number: Effective Repository Date:2018-02-08 02/08/2018 AMARA D Primary AMARA D [place] [id number] Insurance:ANTHEMPolic MCCULLOUGHDOB: Community [place] y Number: [id number], [place] [id number] Repository [address]Kkq: (330) Date:1738-79-17TV [phone] () [place] [address]HD: 02/08/2018 Secondary NOT GIVENUNK [place] Insurance:SELF PAY [facility] Number: Effective Repository Date:2018-02-08 01/25/2018 AMARA D Primary AMARA D [place] [id number] Insurance:ANTHEMPolic MCCULLOUGHDOB: Community [place] y Number: [id number], [place] [id number] Repository [address]Dfn: (330) Date:9740-45-76VD [phone] () [place] [address]MC: 01/25/2018 Secondary NOT GIVENUNK [place] Insurance:SELF PAY [facility] Number: Effective Repository Date:2018-01-25 01/25/2018 AMARA D Primary AMARA D [place] [id number] Insurance:ANTHEMPolic MCCULLOUGHDOB: Community [place] y Number: [id number], [place] [id number] Repository [address]Hgc: (330) Date:1240-84-33VK [phone] () 161634XLAIXYS [place] [address]VH: 01/25/2018 Secondary NOT GIVENUNK [place] Insurance:SELF PAY [facility] Number: Effective Repository Date:2018-01-20 01/04/2018 AMARA D Primary AMARA D [place] [id number] Insurance:ANTHEMPolic MCCULLOUGHDOB: Community [place] y Number: [id number], [place] [id number] Repository [address]Njq: (330) Date:9948-70-63ZQ [phone] () 163469TZGGGRQ [place] [address]GS: 01/04/2018 Secondary NOT GIVENUNK [place] Insurance:SELF PAY [facility] Number: Effective Repository Date:2018-01-04 12/07/2017 AMARA D Primary AMARA D [place] [id number] Insurance:ANTHEMPolic MCCULLOUGHDOB: Community [place] y Number: [id number], [place] [id number] Repository 35[address]Mfr: (330) Date:2021-97-80UI [phone] () 395909QRCRRQI, [place] [address]MU: 12/07/2017 Secondary NOT GIVENUNK [place] Insurance:SELF PAY [facility] Number: Effective Repository Date:2017-12-07 12/07/2017 AMARA D Primary AMARA D [place] [id number] Insurance:ANTHEMPolic MCCULLOUGHDOB: Community [place] y Number: [id number], [place] [id number] Repository [address]Eta: (330) Date:4977-09-78QI [phone] () 771165TBHPLLE, [place] [address]FM: 12/07/2017 Secondary NOT GIVENUNK [place] Insurance:SELF PAY [facility] Number: Effective Repository Date:2017-10-12 11/09/2017 AMARA D Primary AMARA D [place] [id number] Insurance:ANTHEMPolic MCCULLOUGHDOB: Community [place] y Number: [id number], [place] [id number] Repository 78[address]Uvd: (330) Date:7531-60-57UQ [phone] () [place] [address]PI: 11/09/2017 Secondary NOT GIVENUNK [place] Insurance:SELF PAY [facility] Number: Effective Repository Date:2017-11-09 10/21/2017 AMARA D Primary AMARA D [place] [id number] Insurance:ANTHEMPolic MCCULLOUGHDOB: Community [place] y Number: [id number], [place] [id number] Repository [address]Gky: (330) Date:6138-23-16IL [phone] () [place] [address]WG: 10/21/2017 Secondary NOT GIVENUNK [place] Insurance:SELF PAY [facility] Number: Effective Repository Date:2017-10-21 10/12/2017 AMARA D Primary AMARA D [place] [id number] Insurance:ANTHEMPolic MCCULLOUGHDOB: Community [place] y Number: [id number], [place] [id number] Repository [address]Ago: (330) Date:7732-32-60LW [phone] () 156323WXRBTQZJOHN KRAFT [address]CD: 10/12/2017 Secondary NOT GIVENUNK [place] Insurance:SELF PAY [facility] Number: Effective Repository Date:2017-10-12 10/12/2017 AMARA Jud Primary AMARA D [place] [id number] [facility] ANDREZB: Community [place] y Number: [id number], [place] [id number] Repository [address]Jdm: 330) Date:7914-15-08GU [phone] () 711237YGTETPX, [place] [address]HW: 10/12/2017 Secondary NOT GIVENUNK [place] Insurance:SELF PAY [facility] Number: Effective Repository Date:2017-10-12
== END 2018-04-11 10:40 | disposition home or self-care (01) ==
LOC: WPOUT 09:33 → WP 09:34
PROVIDERS: Family Provider Student in an Organized Health Care Education/Training Program; PCP Student in an Organized Health Care Education/Training Program; Referring Provider Obstetrics & Gynecology; Visit Provider Obstetrics & Gynecology
DX: Z01.818 Encounter for other preprocedural examination (principal); O10.913 Unspecified pre-existing hypertension complicating pregnancy, third trimester; O99.343 Other mental disorders complicating pregnancy, third trimester; F41.9 Anxiety disorder, unspecified; Z3A.38 38 weeks gestation of pregnancy
CPT/HCPCS: 36415; 59025; 59050; 82565; 82570; 84156; 84450; 84460; 84550; 85027; 85610; 85730; 99218; G0378

== ENCOUNTER 2018-04-17 10:50 | Inpatient (IN) | payer BC, SELFPAY ==
[2018-04-11 09:59] VITALS: BMI 46.0
[2018-04-12 09:06] VITALS: BMI 46.0
[2018-04-17] VITALS (17 sets, daily range): BP systolic 96–152; BP diastolic 55–85; PULSE 75–106; RESP 12–20; TEMP 36.2–36.9; O2SAT 98–100; BMI 45.7
--- NOTE | 2018-04-17 09:56 | PCM.HP.OB ---
- Problem List (1) Obesity complicating in third trimester Status: Acute (2) Status: Acute Qualifiers: Comment: nipt normal, declined carrier and ntd screening. anatomy scan reviewed. 34 week US normal visualization of cardiac vessels on 19 week US, normal growth. (3) History of delivery Status: Acute Comment: plan RLTCS, not a good TOLAC candidate (4) Advanced maternal age (AMA) in Status: Acute Comment: nipt normal. growth us in third trimester (5) Hypertension affecting Status: Acute Qualifiers: Comment: baseline labs, ekg, propanolol, growth us 32 weeks and nsts/ceci weekly on (6) Supervision of high-risk Status: Acute Qualifiers: Comment: PRR KERLINE 05/01/18 Boy. OSMAR Garza Dane History Date of Admission: 08/10/13 Final KERLINE: 04/24/18 Gestational age: 39 Weeks and 0 Days History of this : This is a 37 year-old, G 2P1 at 37 weeks gestational age presents for repeat . she has a history of HTN and it has been well controlled. Medical History: Medical History (Last Reviewed 04/12/18 @ 09:06 by Keena Clifford) Anxiety F41.9 Hypertension I10 Surgical History: Surgical History (Last Reviewed 04/12/18 @ 09:06 by Keena Clifford) H/O section Onset Date: ~2013 Z98.891 Allergies Penicillins Allergy (Verified 04/05/18 09:06) Rash Home Medications: Home Medications Propranolol HCl [Inderal (Beta Emily)] 20 mg PO BID 11/21/15 vitamin,calcium,pacmlagx-yzqw-qhqjp acid tablet 1 tab PO QDAY 11/09/17 Ferrous Sulfate 04/11/18 Sertraline HCl [Zoloft] 100 mg PO DAILY 04/11/18 Smoking Status: Never smoker Alcohol: None Number of Fetus(es): 1 Heart Tracin History Past Pregnancies: Past Pregnancies Pregancy History 3 Elective abortions 1 Hx Para 1 Spontaneous abortions Hx # Term Pregnancies Ectopic pregnancies Hx # Pregnancies Multiple births # of living children 1 Past Pregnancies Del. Date Name GA/Weeks Outcome Route Bth Weight Infant Gen Labor Lgth Anesthesia Del Locatn Provider FOB 08/11/13 Brent 40 live - full term 9 lbs 5 ounces Male epidural [facility] SAM Delivery Date: 08/11/13 On 10/12/17 @ 12:25 Bertha Moctezuma pushed 3 hours, prolonged labor and baby did not desend Labs: Course Did the patient receive Yes care? Labs Blood Type: A RH: POSITIVE RPR/VDRL/Syphilis Nonreactive Rubella status Immune HbSAg Negative Date Done: 10/21/17 Chlamydia Negative Gonorrhea Negative HIV/AIDS Not done Group B Strep: Negative Current Obstetrical History Gestational Diabetes No Incompetent Cervix No Infertility No IUGR No Macrosomia No Hypertension/Pre-eclampsia Yes: HTN affecting : on propanolol 20 mg bid Placenta Previa/Abruption No PTL/PROM No Uterine anomaly No Oligohydramnios No Polyhydramnios No Multiple gestation No Past Medical History Asthma No Diabetes No Hypertension Yes: chronic HTN 10 yrs. Metoprolol prior to preg. Propanolol during preg Heart disease No Mitral valve prolapse No Neurologic/Seizure disorder/ No Migraines Kidney disease No Liver disease No Varicosities No Clotting disorders/Hx of DVT No Thyroid Dysfunction No Other medical diseases No Psychiatric disorders Yes: Chronic anxiety takes zoloft 100 mg during Major trauma No Abnormal PAP smear No Sleep apnea No Mammogram in the last 2 years Yes Enter DETAILS of medical Anemia during on Iron x 3 mths. history Advanced maternal age: 37 Social History Marital Status: SINGLE Alleged father Dane Brizuela Hx Smoking No Smoking Status Never smoker Expected Delivery Method: Spontaneous Vaginal Review of Systems Constitutional: Denies: Fever, Malaise Eyes: Denies: Blurred vision, Vision Change HEENT: Denies: Head Aches, Visual Changes Cardiovascular: Denies: Chest Pain, Palpitations Respiratory: Denies: Cough, Shortness of Breath, Wheezing Gastrointestinal: Denies: Abdominal Pain, Diarrhea, Nausea, Vomiting Genitourinary: Denies: Dysuria, Hematuria Musculoskeletal: Denies: Joint Pain, Muscle pain Skin: Denies: Lesions, Rash Neurological: Denies: Blurred vision, Focal weakness, Headaches Psychiatric: Denies: Anxiety, Depression Endocrine: Denies: Heat/ Cold Intolerance Hematologic/ Lymphatic: Denies: Easy Bruising, Easy Bleeding Physical Exam General: Alert, Cooperative, No apparent distress HEENT: Atraumatic, Normocephalic. Negative for: Thyromegaly, Lymphadenopathy Cardiovascular: Regular rate Lungs: Normal air movement Abdomen: Soft, Non Tender, Gravid Neurological: Deep Tendon Reflexes 2+/4 and Symmetrical, Neuro grossly intact. Negative for: Clonus DREDGE OPERATOR: Normal external genitalia. Negative for: Vulvar lesions Estimated gestational size: Appropriate for gestational size Presentation: Cephalic Assessment/Plan All Active Problems (Last Reviewed 04/12/18 @ 09:06 by Keena Clifford) Obesity complicating in third trimester (Acute) (Acute) History of delivery (Acute) Advanced maternal age (AMA) in (Acute) Hypertension affecting (Acute) Supervision of high-risk (Acute) Anemia affecting (Resolved) This is a 37 year-old, , at 37 weeks gestational age prsents for RLTCS plan RLTCS cHTN
--- NOTE | 2018-04-17 09:59 | HP.PCM_ITS ---
- Problem List (1) Obesity complicating in third trimester Status: Acute (2) Status: Acute Qualifiers: Comment: nipt normal, declined carrier and ntd screening. anatomy scan reviewed. 34 week US normal visualization of cardiac vessels on 19 week US, normal growth. (3) History of delivery Status: Acute Comment: plan RLTCS, not a good TOLAC candidate (4) Advanced maternal age (AMA) in Status: Acute Comment: nipt normal. growth us in third trimester (5) Hypertension affecting Status: Acute Qualifiers: Comment: baseline labs, ekg, propanolol, growth us 32 weeks and nsts/ceci weekly on (6) Supervision of high-risk Status: Acute Qualifiers: Comment: PRR KERLINE 05/01/18 Boy. OSMAR Garza Dane History Date of Admission: 08/10/13 Final KERLINE: 04/24/18 Gestational age: 39 Weeks and 0 Days History of this : This is a 37 year-old, G 2P1 at 37 weeks gestational age presents for repeat . she has a history of HTN and it has been well controlled. Medical History: Medical History (Last Reviewed 04/12/18 @ 09:06 by Keena Clifford) Anxiety F41.9 Hypertension I10 Surgical History: Surgical History (Last Reviewed 04/12/18 @ 09:06 by Keena Clifford) H/O section Onset Date: ~2013 Z98.891 Allergies Penicillins Allergy (Verified 04/05/18 09:06) Rash Home Medications: Home Medications Propranolol HCl [Inderal (Beta Emily)] 20 mg PO BID 11/21/15 vitamin,calcium,jynzadta-asgm-hbbrk acid tablet 1 tab PO QDAY 11/09/17 Ferrous Sulfate 04/11/18 Sertraline HCl [Zoloft] 100 mg PO DAILY 04/11/18 Smoking Status: Never smoker Alcohol: None Number of Fetus(es): 1 Heart Tracin History Past Pregnancies: Past Pregnancies Pregancy History 3 Elective abortions 1 Hx Para 1 Spontaneous abortions Hx # Term Pregnancies Ectopic pregnancies Hx # Pregnancies Multiple births # of living children 1 Past Pregnancies Del. Date Name GA/Weeks Outcome Route Bth Weight Infant Gen Labor Lgth Anesthesia Del Locatn Provider FOB 08/11/13 Brent 40 live - full term 9 lbs 5 ounces Male epidural [facility] SAM Delivery Date: 08/11/13 On 10/12/17 @ 12:25 Bertha Moctezuma pushed 3 hours, prolonged labor and baby did not desend Labs: Course Did the patient receive Yes care? Labs Blood Type: A RH: POSITIVE RPR/VDRL/Syphilis Nonreactive Rubella status Immune HbSAg Negative Date Done: 10/21/17 Chlamydia Negative Gonorrhea Negative HIV/AIDS Not done Group B Strep: Negative Current Obstetrical History Gestational Diabetes No Incompetent Cervix No Infertility No IUGR No Macrosomia No Hypertension/Pre-eclampsia Yes: HTN affecting : on propanolol 20 mg bid Placenta Previa/Abruption No PTL/PROM No Uterine anomaly No Oligohydramnios No Polyhydramnios No Multiple gestation No Past Medical History Asthma No Diabetes No Hypertension Yes: chronic HTN 10 yrs. Metoprolol prior to preg. Propanolol during preg Heart disease No Mitral valve prolapse No Neurologic/Seizure disorder/ No Migraines Kidney disease No Liver disease No Varicosities No Clotting disorders/Hx of DVT No Thyroid Dysfunction No Other medical diseases No Psychiatric disorders Yes: Chronic anxiety takes zoloft 100 mg during Major trauma No Abnormal PAP smear No Sleep apnea No Mammogram in the last 2 years Yes Enter DETAILS of medical Anemia during on Iron x 3 mths. history Advanced maternal age: 37 Social History Marital Status: SINGLE Alleged father Dane Brizuela Hx Smoking No Smoking Status Never smoker Expected Delivery Method: Spontaneous Vaginal Review of Systems Constitutional: Denies: Fever, Malaise Eyes: Denies: Blurred vision, Vision Change HEENT: Denies: Head Aches, Visual Changes Cardiovascular: Denies: Chest Pain, Palpitations Respiratory: Denies: Cough, Shortness of Breath, Wheezing Gastrointestinal: Denies: Abdominal Pain, Diarrhea, Nausea, Vomiting Genitourinary: Denies: Dysuria, Hematuria Musculoskeletal: Denies: Joint Pain, Muscle pain Skin: Denies: Lesions, Rash Neurological: Denies: Blurred vision, Focal weakness, Headaches Psychiatric: Denies: Anxiety, Depression Endocrine: Denies: Heat/ Cold Intolerance Hematologic/ Lymphatic: Denies: Easy Bruising, Easy Bleeding Physical Exam General: Alert, Cooperative, No apparent distress HEENT: Atraumatic, Normocephalic. Negative for: Thyromegaly, Lymphadenopathy Cardiovascular: Regular rate Lungs: Normal air movement Abdomen: Soft, Non Tender, Gravid Neurological: Deep Tendon Reflexes 2+/4 and Symmetrical, Neuro grossly intact. Negative for: Clonus SURG[facility] CENTER ADMINISTRATOR: Normal external genitalia. Negative for: Vulvar lesions Estimated gestational size: Appropriate for gestational size Presentation: Cephalic Assessment/Plan All Active Problems (Last Reviewed 04/12/18 @ 09:06 by Keena Clifford) Obesity complicating in third trimester (Acute) (Acute) History of delivery (Acute) Advanced maternal age (AMA) in (Acute) Hypertension affecting (Acute) Supervision of high-risk (Acute) Anemia affecting (Resolved) This is a 37 year-old, , at 37 weeks gestational age prsents for RLTCS plan RLTCS cHTN
[2018-04-17] MEDS: Lactated Ringers 1,000 ML 999 ML IV (10:55)
[2018-04-17 11:27] LABS: Absolute Lymphocyte Count 1.56 X10^3/ul (0.83-4.51); Absolute Neutrophil Count 5.8 X10^3/uL (2.0-7.7); Basophil# 0.01 X10^3/uL; Basophil% 0.1 % (0-1); Eosinophil# 0.05 X10^3/uL; Eosinophils% 0.6 % (0-5); Hemoglobin 11.7 g/dl (12.0-15.0); Lymphocyte # 1.56 X10^3/ul (4.0); Lymphocyte % 19.6 % (19-41); Mean Corp Hgb Conc 33.4 g/gl (32-36); Mean Corpuscular Hgb 28.7 pg (27.0-32.0); Mean Platelet Vol. 11.4 fl (6.2-12.0); Monocyte# 0.52 X10^3/uL; Monocyte% 6.5 % (0-10); Neutrophil # 5.82 X10^3/uL (2.7-7.7); Neutrophil % 73.1 % (47-70); Platelet Count 230 K/mm3 (150-450); RBC Distribution Width CV 14.6 % (11.6-14.6); RBC Distribution Width SD 45.6 fl (35.1-43.9); Red Blood Count 4.07 M/mm3 (4.2-5.4)
[2018-04-17 11:28] LABS: POSITIVE COUNT NO; POSITIVE DIFFERENTIAL NO; POSITIVE MORPHOLOGY NO
[2018-04-17] MEDS: Lactated Ringers 1,000 ML 150 ML IV (11:55)
[2018-04-17] MEDS: Sodium Citrate/Citric Acid 30 ML UDC PO (11:56)
[2018-04-17] MEDS: 0.9% Saline Lock 10 ML Syringe IV (11:56)
--- NOTE | 2018-04-17 12:32 | OP.PCM_ITS ---
Problem List (1) Obesity complicating in third trimester Status: Acute (2) Status: Acute Qualifiers: Comment: nipt normal, declined carrier and ntd screening. anatomy scan reviewed. 34 week US normal visualization of cardiac vessels on 19 week US, normal growth. (3) History of delivery Status: Acute Comment: plan RLTCS, not a good TOLAC candidate (4) Advanced maternal age (AMA) in Status: Acute Comment: nipt normal. growth us in third trimester (5) Hypertension affecting Status: Acute Qualifiers: Comment: baseline labs, ekg, propanolol, growth us 32 weeks and nsts/ceci weekly on (6) Supervision of high-risk Status: Acute Qualifiers: Comment: PRR KERLINE 05/01/18 Boy. PC Greg Dane Report of Operation Date of Procedure: 04/17/18 Pre-Operative Diagnosis: prev csection chtn Post-Operative Diagnosis: Same Surgery/Procedure Performed:: rltcs Description of Surgical Findings:: Enlarged blood vessels right side of the uterus scarring of the lower uterine s egment field artillery officer: Mike Elizondo Type of Anesthesia:: Spinal Special Medications: none Specimen's removed: male Drains: ramsay Estimated Blood Loss (mL): 900 Fluids Replaced: crystalloid Description of Procedure: The patient is a 37-year-old at 38 weeks presented for repeat . Spinal anesthesia was placed without difficulty. Ramsay catheter was placed. The patient was placed in the dorsal supine position with leftward tilt. Patient was prepped and draped in the normal sterile fashion. Pfannenstiel skin incision was made with the scalpel and carried through to the underlying layer of fascia with the scalpel. Fascia was nicked in the midline and the incision extended laterally. The rectus bellies were dissected off superiorly and inferiorly with out complication both sharply and bluntly. The peritoneum was entered digitally. The incision was stretched and a low transverse uterine incision was made with the scalpel. The infant's head was delivered atraumat ically followed by the anterior and posterior shoulders without complication the rest of the infant delivered. The cord was clamped and cut and the infant was handed off to awaiting nurse. The placenta was delivered spontaneously immediately following and was noted to be intact and have a three-vessel cord. The uterus was exteriorized cleared of all clots and debris, and the incision was closed in a double layer closure using #1 Monocryl. The uterus was returned to the maternal abdomen and gutters were cleared of all clots and debris. The ovaries and fallopian tubes were noted to be within normal limits. The peritoneum was closed with 3-0 Monocryl in a running fashion. Fascia was closed with 0 PDS in a running fashion. Subcutaneous tissue was copiously irrigated and the skin was closed with 3-0 Monocryl in a subcuticular fashion. Mepilex dressing were applied without complication. Patient was taken to recovery in stable condition. Grafts/Implants Used: none - Complications none
[2018-04-17] MEDS: Oxytocin 30 units/NS 500 ml 30 UNITS/500 ML IV.SOLN 167 UNITS IV (12:46)
[2018-04-17] MEDS: Ketorolac 30 MG/ML Syringe IV ×2 (13:05→18:56)
[2018-04-17] MEDS: Lactated Ringers 1,000 ML 100 ML IV ×2 (14:46→18:57)
--- NOTE | 2018-04-17 16:00 | NURSING ---
Received report from Peyton Mix RN. I will assume care of patient along with Nilda Prince RN, who is orienting.
[2018-04-17] MEDS: Lactated Ringers 500 ML 999 ML IV (18:55)
[2018-04-17] MEDS: Propranolol 10 MG Tablet 20 MG PO (22:35)
[2018-04-18] VITALS (10 sets, daily range): BP systolic 115–142; BP diastolic 59–86; PULSE 77–96; RESP 16–18; TEMP 36.4–36.6; O2SAT 97–100
[2018-04-18] MEDS: Ketorolac 30 MG/ML Syringe IV ×4 (01:36→18:43)
[2018-04-18] MEDS: Lactated Ringers 1,000 ML 100 ML IV (05:22)
[2018-04-18 06:06] LABS: Hematocrit 31.3 % (37-47); Hemoglobin 10.2 g/dl (12.0-15.0); Mean Corp Hgb Conc 32.6 g/gl (32-36); Mean Corpuscular Hgb 28.3 pg (27.0-32.0); Mean Corpuscular Volume 86.9 fL (81-99); Mean Platelet Vol. 10.9 fl (6.2-12.0); Platelet Count 193 K/mm3 (150-450); RBC Distribution Width CV 14.8 % (11.6-14.6); RBC Distribution Width SD 46.4 fl (35.1-43.9); White Blood Count 9.2 K/mm3 (4.4-11.0)
[2018-04-18 06:08] LABS: Scan Indicated on CBC? Y/N NO
--- NOTE | 2018-04-18 07:54 | PCM.PN.OB ---
Subjective: No CP, SOB. Doing well. Pain controlled - Physical Exam General: Alert, Oriented x3 Abdomen: Soft, Non Tender, Non-Distended, - - FF below U. Dressing dry and intact Vital Signs Temp Pulse Resp BP Pulse Ox 97.7 F L 92 18 123/76 H 97 04/18/18 07:45 04/18/18 07:45 04/18/18 07:45 04/18/18 07:45 04/18/18 07:45 Oxygen Delivery Method Room Air Weight: 292 lb 1.8 oz Body Mass Index (BMI) 45.7 Intake and Output for Last 24 Hours 04/16/18 04/17/18 04/18/18 23:59 23:59 23:59 Intake Total 2211 / 2211 1673 / 1673 Output Total 385 / 385 875 / 875 Balance 1826 / 1826 798 / 798 Laboratory Tests Past 24 Hrs 04/17/18 04/17/18 04/18/18 10:55 10:55 05:35 WBC 8.0 9.2 RBC 4.07 L 3.60 L Hgb 11.7 L 10.2 L Hct 35.0 L 31.3 L MCV 86.0 86.9 MCH 28.7 28.3 MCHC 33.4 32.6 RDW 14.6 14.8 H RDW Differential 45.6 H 46.4 H Plt Count 230 193 MPV 11.4 10.9 Immature Gran % (Auto) 0.100 Neut % (Auto) 73.1 H Lymph % (Auto) 19.6 [place] % (Auto) 6.5 Eos % (Auto) 0.6 Baso % (Auto) 0.1 Absolute Neuts (auto) 5.8 Absolute Lymphs (auto) 1.56 Total Counted Not Reportable Blood Type A POSITIVE Antibody Screen NEGATIVE Medical Necessity - Tobacco Use Smoking Status: Never smoker Assessment/Plan All Active Problems (Last Reviewed 04/12/18 @ 09:06 by Keena Clifford) Obesity complicating in third trimester (Acute) (Acute) History of delivery (Acute) Advanced maternal age (AMA) in (Acute) Hypertension affecting (Acute) Supervision of high-risk (Acute) Anemia affecting (Resolved) LTRCS POD#1: Routine care.Pain controlled.
[2018-04-18] MEDS: Enoxaparin 40 MG/0.4 ML Syringe SC (07:56)
[2018-04-18] MEDS: Propranolol 10 MG Tablet 20 MG PO ×2 (07:57→21:47)
[2018-04-18] MEDS: Prenatal Vits Tablet 1 TABLET PO (07:57)
[2018-04-18] MEDS: Senna/Docusate Sodium 1 Tablet PO (07:57)
[2018-04-18] MEDS: Sertraline 100 MG Tablet PO (07:57)
--- NOTE | 2018-04-18 12:25 | NURSING ---
1030 While rounding, baby having a circ procedure at this time. Mom states that she is choosing to only pump and supplement with SWI. Mom has another child and did not get a full milk supply. We discussed measures to help with accelerating her milk supply and encouraged Mom to call if I can help with pumping questions etc. Rocio MOORE
[2018-04-18] MEDS: 0.9% Saline Lock 10 ML Syringe IV ×2 (12:54→18:43)
[2018-04-18] MEDS: Acetaminophen 500 MG Tablet 1000 MG PO (21:51)
[2018-04-19] MEDS: 0.9% Saline Lock 10 ML Syringe IV ×2 (00:46→06:32)
[2018-04-19] MEDS: Ketorolac 30 MG/ML Syringe IV ×2 (00:46→06:32)
[2018-04-19 00:59] VITALS: BP 131/77; PULSE 90; RESP 18; TEMP 36.6
[2018-04-19 07:37] VITALS: BP 139/88; PULSE 67; RESP 18; TEMP 36.7; O2SAT 96
--- NOTE | 2018-04-19 07:42 | PCM.PN.OB ---
Subjective: No CP, SOB. No issues with urinating. Has had flatus. Plans home today. Pain controlled - Physical Exam General: Alert, Oriented x3 Abdomen: Soft, Non-Distended, - - FF below U. Dressing dry and intact. Minimal tenderness. Vital Signs Temp Pulse Resp BP Pulse Ox 97.8 F 90 18 131/77 H 97 04/19/18 00:59 04/19/18 00:59 04/19/18 00:59 04/19/18 00:59 04/18/18 19:49 Oxygen Delivery Method Room Air Weight: 292 lb 1.8 oz Body Mass Index (BMI) 45.7 Intake and Output for Last 24 Hours 04/17/18 04/18/18 04/19/18 23:59 23:59 23:59 Intake Total 2211 / 2211 2222 / 2222 Output Total 385 / 385 2125 / 2125 Balance 1826 / 1826 97 / 97 Medical Necessity - Tobacco Use Smoking Status: Never smoker Assessment/Plan All Active Problems (Last Reviewed 04/12/18 @ 09:06 by Keena Clifford) Obesity complicating in third trimester (Acute) (Acute) History of delivery (Acute) Advanced maternal age (AMA) in (Acute) Hypertension affecting (Acute) Supervision of high-risk (Acute) Anemia affecting (Resolved) LTRCS POD#2: Routine care. Bottle feeding. Blood pressures WNL. Home today
--- NOTE | 2018-04-19 07:44 | DCINST_ITS ---
Additional Instructions: If you experience any of the following, contact your healthcare provider. * Bleeding that soaks a pad every hour for 2 hours * Fever 100.4 or higher * Unrelieved incision or abdominal pain * Swelling, redness, discharge or bleeding from your incision or episiotomy site * Your incision begins to separate * Problems urinating (including inability to urinate or burning while urinating). * Visual changes * Severe headache * Flu-like symptoms * Pain or redness in one of both of your breasts * Pain, warmth, tenderness or swelling in your legs, especially the calf area * Frequent nausea and vomiting * Symptoms of depression or anxiety If you experience any of the following, call 911 or go to the nearest Emergency Room. * Chest pain * Problems breathing * Seizure activity * Partial or complete paralysis of a body part, slurred speech, weakness or drooping of the face, or a sudden inability to walk or hold your balance Allergies/Adverse Reactions: Allergies Penicillins Allergy (Verified 04/05/18 09:06) Rash Medications to take at Discharge Propranolol HCl [Inderal (Beta Emily)] 20 mg PO BID 11/21/15 vitamin,calcium,qcocluea-adqn-liedf acid tablet 1 tab PO QDAY 11/09/17 Ferrous Sulfate 04/11/18 Sertraline HCl [Zoloft] 100 mg PO DAILY 04/11/18 Naproxen 500 mg PO BID PRN #60 tablet 04/19/18 Oxycodone HCl/Acetaminophen [Percocet 5/325] 1 - 2 tablet PO Q4H PRN PRN 3 Days #15 tablet 04/19/18 The following prescriptions were given: Oxycodone HCl/Acetaminophen [Percocet 5/325] 1 - 2 tablet PO Q4H PRN PRN 3 Days #15 tablet PRN Reason: Pain Naproxen 500 mg PO BID PRN #60 tablet PRN Reason: Pain Follow-Up: Call to make an appointment with your doctor for an incision check in 1-2 weeks. You will also need a 6 week post- follow up appointment. Test results from this visit will be discussed in further detail at your follow- up appointment, if applicable. Primary Care Physician: Blaine Henderson DO [Primary Care Provider] -
--- NOTE | 2018-04-19 07:44 | PCM.DCCSEC ---
Additional Instructions: If you experience any of the following, contact your healthcare provider. Bleeding that soaks a pad every hour for 2 hours Fever 100.4 or higher Unrelieved incision or abdominal pain Swelling, redness, discharge or bleeding from your incision or episiotomy site Your incision begins to separate Problems urinating (including inability to urinate or burning while urinating). Visual changes Severe headache Flu-like symptoms Pain or redness in one of both of your breasts Pain, warmth, tenderness or swelling in your legs, especially the calf area Frequent nausea and vomiting Symptoms of depression or anxiety If you experience any of the following, call 911 or go to the nearest Emergency Room. Chest pain Problems breathing Seizure activity Partial or complete paralysis of a body part, slurred speech, weakness or drooping of the face, or a sudden inability to walk or hold your balance Allergies/Adverse Reactions: Allergies Penicillins Allergy (Verified 04/05/18 09:06) Rash Medications to take at Discharge Propranolol HCl [Inderal (Beta Emily)] 20 mg PO BID 11/21/15 vitamin,calcium,aciujuxo-aiye-cxvgu acid tablet 1 tab PO QDAY 11/09/17 Ferrous Sulfate 04/11/18 Sertraline HCl [Zoloft] 100 mg PO DAILY 04/11/18 Naproxen 500 mg PO BID PRN #60 tablet 04/19/18 Oxycodone HCl/Acetaminophen [Percocet 5/325] 1 - 2 tablet PO Q4H PRN PRN 3 Days #15 tablet 04/19/18 The following prescriptions were given: Oxycodone HCl/Acetaminophen [Percocet 5/325] 1 - 2 tablet PO Q4H PRN PRN 3 Days #15 tablet PRN Reason: Pain Naproxen 500 mg PO BID PRN #60 tablet PRN Reason: Pain Follow-Up: Call to make an appointment with your doctor for an incision check in 1-2 weeks. You will also need a 6 week post- follow up appointment. Test results from this visit will be discussed in further detail at your follow-up appointment, if applicable. Primary Care Physician: Blaine Henderson DO [Primary Care Provider] -
[2018-04-19] MEDS: Enoxaparin 40 MG/0.4 ML Syringe SC (07:51)
[2018-04-19] MEDS: Prenatal Vits Tablet 1 TABLET PO (07:52)
[2018-04-19] MEDS: Propranolol 10 MG Tablet 20 MG PO (07:52)
[2018-04-19] MEDS: Sertraline 100 MG Tablet PO (07:52)
[2018-04-19 08:34] VITALS: BP 139/88; PULSE 67; RESP 18; TEMP 36.7; O2SAT 96
--- NOTE | 2018-04-19 10:35 | NURSING ---
Pt instructed on pumping benefits and the importance of pumping q 2-3 hours for stimulation. Pt declined pumping this AM up to this point. [employer] consultant aware of this prior to her seeing the pt.
[2018-04-19 11:57] VITALS: BP 144/84; PULSE 83; RESP 18; TEMP 36.5; O2SAT 97
--- NOTE | 2018-04-19 12:57 | NURSING ---
This nurse reviewed the charting completed by the student nurse, Lizeth Izaguirre.
--- OUTSIDE RECORDS SUMMARY | 2018-06-10 16:14 | XMS RPT_ITS ---
:1980 Author Organization OHIP Support Name Relationship Address Phone DANE TAY Unavailable [address] + [place] [address] FIORE, SU Unavailable 0 + [place] [address] [place] Unavailable [address] + [place] [address] DANE TAY Unavailable [address] + [place] [address] FIORE, SU Unavailable Unavailable + [place] [address] [place] Unavailable [address] + [place] [address] DANE TAY Unavailable [address] + [place] [address] FIORE, SU Unavailable Unavailable + [place] [address] [place] Unavailable [address] + [place] [address] DANE TAY Unavailable [address] + [place] [address] FIORE, SU Unavailable Unavailable + [place] [address] [place] Unavailable [address] + [place] [address] DANE TAY Unavailable [address] + [place] [address] FIORE, SU Unavailable . + [place] [address] [place] Unavailable [address] + [place] [address] DANE TAY Unavailable [address] + [place] [address] MACARENA SU Unavailable . + [place] [address] [place] Unavailable [address] + [place] [address] DANE TAY Unavailable [address] + [place] [address] MACARENA, SU Unavailable Unavailable + [place] [address] [place] Unavailable [address] + [place] [address] DANE TAY Unavailable [address] + [place] [address] FIORE, SU Unavailable Unavailable + [place] [address] [place] Unavailable [address] + [place] [address] DANE TAY Unavailable [address] + [place] [address] FIORE, SU Unavailable .1 + [place] [address] [place] Unavailable [address] + [place] [address] DANE TAY Unavailable [address] + [place] [address] FIORE, SU Unavailable .1 + [place] [address] [place] Unavailable [address] + [place] [address] DANE TAY Unavailable [address] + [place] [address] FIORE, SU Unavailable Unavailable + [place] [address] [place] Unavailable [address] + [place] [address] DANE TAY Unavailable [address] + [place] [address] FIORE, SU Unavailable . + [place] [address] [place] Unavailable [address] + [place] [address] DANE TAY Unavailable [address] + [place] [address] MACARENA SU Unavailable . + [place] [address] [place] Unavailable [address] + [place] [address] DANE TAY Unavailable [address] + [place] [address] MACARENA, SU Unavailable . + [place] [address] [place] Unavailable [address] + [place] [address] DANE TAY Unavailable [address] + [place] [address] MACARENA SU Unavailable Unavailable + [place] [address] [place] Unavailable [address] + [place] [address] DANE TAY Unavailable [address] + [place] [address] MACARENA SU Unavailable . + [place] [address] [place] Unavailable [address] + [place] [address] DANE TAY Unavailable [address] + [place] [address] MACARENA SU Unavailable Unavailable + [place] [address] [place] Unavailable [address] + [place] [address] DANE TAY Unavailable [address] + [place] [address] MACARENA SU Unavailable . + [place] [address] [place] Unavailable [address] + [place] [address] DANE TAY Unavailable [address] + [place] [address] SU FIORE Unavailable . + [place] [address] [place] Unavailable [address] + [place] [address] DANE TAY Unavailable [address] + [place] [address] SU FIORE Unavailable . + [place] [address] [place] Unavailable [address] + [place] [address] DANE TAY Unavailable [address] + [place] [address] SU FIORE Unavailable Unavailable + [place] [address] [place] Unavailable [address] + [place] [address] DANE TAY Unavailable [address] + [place] [address] [place] Unavailable [address] + [place] [address] DANE TAY Unavailable [address] + [place] [address] [place] Unavailable [address] + [place] [address] DANE TAY Unavailable [address] + [place] [address] [place] Unavailable [address] + [place] [address] DANE TAY Unavailable [address] + [place] [address] [facility] Unavailable [address] + [place] [address] FOZIA FIORE Unavailable [address] + [place] [address] Care Team Providers Name Role Phone SCOTTIE [...] Referring Unavailable Henderson, Blaine Primary Care Unavailable [place], Kia Attending Unavailable Henderson, Blaine Referring Unavailable [...] Referring Unavailable Henderson, Blaine Primary Care Unavailable [place], Kia Attending Unavailable Henderson, Blaine Referring Unavailable [...] Z09 - Encounter for Kia Mitchell Active [place] follow-up Community examination after Hospital completed treatment Repository for conditions other than malignant neoplasm / Z09(ICD-10) 05/02/2018 Unknown Z30.011 - Encounter Kia Mitchell Active [place] for initial Community prescription of Hospital contraceptive pills Repository / Z30.011(ICD-10) 04/19/2018 Unknown G89.18 - Other acute Marcanthony, Active [place] postprocedural pain [facility] / G89.18(ICD-10) Hospital Repository 04/12/2018 Unknown O09.90 - Supervision Marcanthony, Active [place] of high risk [facility] , Hospital unspecified, Repository unspecified trimester / O09.90(ICD-10) 04/05/2018 Unknown O09.93 - Supervision Marcanthony, Active [place] of high risk [facility] , Hospital unspecified, third Repository trimester / O09.93(ICD-10) 04/05/2018 Unknown Z68.41 - Body mass Marcanthony, Active [place] index (BMI) [facility] 40.0-44.9, adult / Hospital Z68.41(ICD-10) Repository 04/05/2018 Unknown Z98.891 - History of Marcanthony, Active [place] uterine scar from [facility] previous surgery / Hospital Z98.891(ICD-10) Repository 04/05/2018 Unknown O16.3 - Unspecified Marcanthony, Active [place] maternal [facility] hypertension, third Hospital trimester / Repository O16.3(ICD-10) 04/05/2018 Unknown O99.019 - Anemia Marcanthony, Active [place] complicating [facility] , Hospital unspecified Repository trimester / O99.019(ICD-10) 04/05/2018 Unknown O99.213 - Obesity Marcanthony, Active [place] complicating [facility] , third Hospital trimester / Repository O99.213(ICD-10) 04/05/2018 Unknown Z3A.35 - 35 weeks Marcanthony, Active [place] gestation of [facility] / Hospital Z3A.35(ICD-10) Repository 03/08/2018 Unknown Z3A.32 - 32 weeks Marcanthony, Active [place] gestation of [facility] / Hospital Z3A.32(ICD-10) Repository 03/08/2018 Unknown O99.013 - Anemia Marcanthtrevin, Active [place] complicating [facility] , third Hospital trimester / Repository O99.013(ICD-10) 03/08/2018 Unknown Z3A.30 - 30 weeks Marcanthony, Active [place] gestation of [facility] / Hospital Z3A.30(ICD-10) Repository 02/08/2018 Unknown R30.0 - Dysuria / Marcanthony, Active [place] R30.0(ICD-10) [facility] Hospital Repository 02/08/2018 Unknown Z3A.28 - 28 weeks Marcanthony, Active [place] gestation of [facility] / Hospital Z3A.28(ICD-10) Repository 01/25/2018 Unknown Z34.90 - Encounter Rhianna, Active [place] for supervision of [facility] normal , Hospital unspecified, Repository unspecified trimester / Z34.90(ICD-10) 01/25/2018 Unknown Z23 - Encounter for Rhianna, Active [place] immunization / [facility] Z23(ICD-10) Hospital Repository 01/04/2018 Unknown O09.92 - Supervision StephenKia baker Active [place] of high risk Replaced By [facility] , Hospital unspecified, second Repository trimester / O09.92(ICD-10) 01/04/2018 Unknown O16.2 - Unspecified StephenKia Active [place] maternal Community hypertension, second Hospital trimester / Repository O16.2(ICD-10) 01/04/2018 Unknown Z3A.23 - 23 weeks BauxiteKia Active [place] gestation of Replaced By [facility] / Hospital Z3A.23(ICD-10) Repository PROCEDURES PROCEDURES No Procedure Records FoundRESULTS RESULTS ROAD MACHINE OPERATOR OFFICE VISIT Observed: 05/02/2018 Status: F Source: [place] REPORT 9:33 AM [facility] [place] [facility] [address] [place] [address]. [address] [place] [address] OFFICE VISIT Date of Service: 05/02/18 MR#: [id number] Acct: [id number] Name: AMARA FIORE Rep #: [id number] : 1980 Provider: OLGA Mitchell Age/Sex: 37/F Location: [facility] Status: Signed Intake Vital Signs05/02/18 Body Mass Index (BMI) 45.7 05/02/18 Height 5 ft 7 in 05/02/18 Weight: 278 lb 05/02/18 Body Mass Index (BMI) 43.5 05/02/18 Blood Pressure 130/84 H Intake Visit Reasons: 2 WK POST OP DEL 04/17/18 Chief Complaint: 2w post c/s Balance Weigher Required: No Is patient in pain?: No Allergies Penicillins Allergy (Verified 05/02/18 09:20) Rash Medications Propranolol HCl [Inderal (Beta Emily)] 20 mg PO BID 11/21/15 [History Confirmed 05/02/18] vitamin,calcium,xxlkntpv-jcnv-dusnt acid tablet 1 tab PO QDAY 11/09/17 [...] 04/19/2018 Status: F Source: [place] 7:44 AM [facility] [place] [facility] Medical Records Department [address] [place] [address] Instructions for Home/Discharge Instructions 04/19/18 0744 MR#: [id number] Acct: [id number] Name: AMARA FIORE Rep #: [id number] : 1980 37 From: Kia MEDRANO PCP: [...] (Beta Emily)] 20 mg PO BID 11/21/15 vitamin,calcium,njrwvrhq-szrb-unzlo acid tablet 1 tab PO QDAY 11/09/17 [...] signed by Kia MEDRANO> Date Kia Mitchell HOT PIPE GAUGER-C CC: Blaine Padgett DO CBC-COMPLETE BLOOD CNT Collected: 04/18/2018 Status: F Source: [place] NO DIFF 5:35 AM [facility] [place] [facility] Order Comment: Comments: Day #1 Reason [...] MPV 10.9 Performed By: #### L100.0500 #### [facility] [address] [place], [address] OPERATIVE REPORT Observed: 04/17/2018 Status: F Source: [place] 8:41 PM [facility] [place] [facility] Medical Records Department [address] [place] [address] Operative Report 04/17/18 1231 MR#: [id number] Acct: [id number] Name: AMARA FIORE Rep #: [id number] : 1980 37 From: Bertha Hunt MD PCP: Blaine Padgett DO Status: ADM IN Y Location: [id number] Problem List (1) Obesity complicating in third [...] uterus scarring of the lower uterine segment carpenters: Mike Elizondo Type of Anesthesia:: Spinal Special Medications: none [...] 04/17/2018 Status: F Source: [place] 10:55 AM [facility] [place] [facility] TYPE CODE TESTS RESULT OUT OF [...] Lymph 1.56 Performed By: #### L100.0100 #### [facility] [address] [place], [address] TYPE AND SCREEN Collected: 04/17/2018 Status: F Source: [place] 10:55 AM [facility] [place] [facility] Order Comment: Reason for Type AND Screen/Red Cells: SURGERY Type of Surgery: TYPE CODE TESTS RESULT OUT OF RANGE REFERENCE UNITS LAB B10.0800 A Normal BLOOD TYPE GEL POSITIVE LAB B100.4000 Normal Antibody NEGATIVE Screen Performed By: #### B101.7450 #### [facility] [address] [place], [address] HISTORY AND PHYSICAL Observed: 04/17/2018 Status: F Source: [place] EXAM 9:59 AM [facility] [place] [facility] Medical Records Department [address] [place] [address] History and Physical 04/17/18 0956 MR#: [id number] Acct: [id number] Name: FIOREAMARA Rep #: [id number] : 1980 37 From: Bertha Hunt MD [...] (Beta Emily)] 20 mg PO BID 11/21/15 vitamin,calcium,cgzvpdav-nfcc-mygpq acid tablet 1 tab PO QDAY 11/09/17 [...] Symmetrical, Neuro grossly intact. Negative for: Clonus WATCH AND CLOCK MAKER AND REPAIRER: Normal external genitalia. Negative for: Vulvar lesions [...] Blaine Padgett DO; Bertha Hunt MD Signed ROAD MACHINE OPERATOR OFFICE VISIT Observed: 04/12/2018 Status: F Source: [place] REPORT 11:36 [facility] [address] [place], [place] [address] OFFICE VISIT Date of Service: 04/12/18 MR#: [id number] Acct: [id number] Name: AMARA FIORE Rep #: [id number] : 1980 Provider: Bertha Hunt MD Age/Sex: 37/F Location: [facility] Status: Signed Intake Vital Signs04/12/18 Body Mass Index (BMI) 46.0 04/12/18 Height 5 ft 7 in 04/12/18 Weight: 292 lb 04/12/18 Body Mass Index (BMI) 45.7 04/12/18 Blood Pressure 130/100 H Intake Visit Reasons: 37 WEEK OB Chief Complaint: est ob Balance Weigher Required: No Is patient in pain?: Yes Allergies Penicillins Allergy (Verified 04/05/18 09:06) Rash Medications Propranolol HCl [Inderal (Beta Emily)] 20 mg PO BID 11/21/15 [History Confirmed 04/12/18] vitamin,calcium,qgifoogm-mrid-kschp acid tablet 1 tab PO QDAY 11/09/17 [...] abortions Past Pregnancies Del. DatName GA/WeeksOutcome Route [facility] LocaProviderFOB e ht en th ia [...] Trimester: third trimester Additional Codes Non-Stress Test (60252) 04/12/18 1136 <Electronically signed by Bertha Hunt MD> Date Bertha Hunt MD Cosigner Signature: Date (if applicable) CC: CBC-COMPLETE BLOOD CNT Collected: 04/11/2018 Status: F Source: [place] NO DIFF 9:40 AM [facility] TYPE CODE TESTS RESULT OUT OF [...] MPV 11.1 Performed By: #### L100.0500 #### [facility] [address] [place], [address] PROTEIN+CREATININE Collected: Status: F Source: [place] RATIO,URINE 04/11/2018 9:40 AM [facility] [place] [facility] TYPE CODE TESTS RESULT OUT OF RANGE REFERENCE UNITS LAB L501.1200 NO RANGE EST. mg/dL Normal UR CREAT 49.80 LAB L501.1930 <11.9 mg/dL Normal < 6.0 PROTEIN,UR.R AN. LAB L501.1940 0-200 mg/g CRE Normal PROT:CRE 118 RATIO Performed By: #### L501.0900 #### [facility] [address] [place], [address] PROTHROMBIN TIME W/INR Collected: 04/11/2018 Status: F Source: [place] 9:40 AM [facility] [place] [facility] TYPE CODE TESTS RESULT OUT OF RANGE REFERENCE UNITS LAB L300.4150 11.7-14.9 SECONDS Normal PROTIME 12.6 LAB L300.4200 Normal INR 0.9 Performed By: #### L300.3900, L300.4310, L501.1105, L501.1400, L501.4100, L501.4405 #### [facility] [address] [place], [address] PARTIAL THROMBOPLAST Collected: 04/11/2018 Status: F Source: [place] TIME 9:40 AM [facility] [place] [facility] TYPE CODE TESTS RESULT OUT OF RANGE REFERENCE UNITS LAB L300.4310 24.1-36.2 Seconds Normal PTT 26.0 Performed By: #### L300.3900, L300.4310, L501.1105, L501.1400, L501.4100, L501.4405 #### [facility] [address] [place], [address] SERUM CREATININE AND Collected: 04/11/2018 Status: F Source: [place] GFR 9:40 AM [facility] [place] TYPE CODE TESTS RESULT OUT OF [...] L300.3900, L300.4310, L501.1105, L501.1400, L501.4100, L501.4405 #### [facility] [address] [place], [address] URIC ACID Collected: 04/11/2018 Status: F Source: [place] 9:40 AM [facility] [place] TYPE CODE TESTS RESULT OUT OF RANGE REFERENCE UNITS LAB L501.1400 2.6-6.0 mg/dL Normal URIC 4.9 Result Comment: The drugs N-Acetylcysteine and Metamizole may falsely depress this assay. Performed By: #### L300.3900, L300.4310, L501.1105, L501.1400, L501.4100, L501.4405 #### [facility] [address] [place], [address] AST(SGOT) Collected: 04/11/2018 Status: F Source: [place] 9:40 AM [facility] TYPE CODE TESTS RESULT OUT OF RANGE REFERENCE UNITS LAB L501.4100 15-37 U/L Low AST 10 Performed By: #### L300.3900, L300.4310, L501.1105, L501.1400, L501.4100, L501.4405 #### [facility] [address] [place], [address] ALANINE AMINOTRANSFERAS Collected: 04/11/2018 Status: F Source: [place] (SGPT) 9:40 AM [facility] TYPE CODE TESTS RESULT OUT OF RANGE REFERENCE UNITS LAB L501.4405 13-56 U/L Low ALT 12 Performed By: #### L300.3900, L300.4310, L501.1105, L501.1400, L501.4100, L501.4405 #### [place] [facility] [address] [place], [address] Observed: 04/05/2018 Status: F Source: [place] CULTURE, GROUP B 5:47 PM [facility] [place] STREPT[facility]CCUS REPOSITORY RAFAEL Culture Group B Beta Streptococcus is not isolated. Performed By: #### M100.1800 #### [place] [facility] [address] [place], [address] ROAD MACHINE OPERATOR OFFICE VISIT Observed: 04/05/2018 Status: F Source: [place] REPORT 10:33 AM [facility] [address] [place] [address] OFFICE VISIT Date of Service: 04/05/18 MR#: [id number] Acct: [id number] Name: AMARA FIORE Rep #: [id number] : 1980 Provider: Betrha Hunt MD Age/Sex: 37/F Location: [facility] Status: Signed Intake Vital Signs04/05/18 Height 5 ft 7 in 04/05/18 Weight: 291 lb 4 oz 04/05/18 Body Mass Index (BMI) 45.6 04/05/18 Blood Pressure 122/86 H Intake Visit Reasons: 36 WEEK OB Chief Complaint: est ob Balance Weigher Required: No Is patient in pain?: No Allergies Penicillins Allergy (Verified 04/05/18 09:06) Rash Medications Propranolol HCl [Inderal (Beta Emily)] 20 mg PO BID 11/21/15 [History Confirmed 04/05/18] vitamin,calcium,htgnqqwx-cbty-yxkrt acid tablet 1 tab PO QDAY 11/09/17 [...] abortions Past Pregnancies Del. DatName GA/WeeksOutcome Route [facility] LgAnesthesDel LocaProviderFOB e ht en ia tn 08/11/13Kaden 40 live birC-sectio9 lbs 5 Male epiduralWCH SAM th - fuln ounces l term Delivery Date: 08/11/13 On 10/12/17 @ 12:25 Bertha Hunt pushed 3 hours, prolonged labor and baby did not desend HPI 37 WEEK OB: Details: AAMRA FIORE is a 37 year old who [...] MD Cosigner Signature: Date (if applicable) CC: ROAD MACHINE OPERATOR OFFICE VISIT Observed: 03/29/2018 Status: F Source: [place] REPORT 11:03 AM [facility] [address] [place] [address] OFFICE VISIT Date of Service: 03/29/18 MR#: [id number] Acct: [id number] Name: AMARA FIORE Rep #: [id number] : 1980 Provider: OLGA Mitchell Age/Sex: 37/F Location: [facility] Status: Signed Intake Vital Signs03/29/18 Height 5 ft 7 in 03/29/18 Weight: 291 lb 8 oz 03/29/18 Body Mass Index (BMI) 45.6 03/29/18 Blood Pressure 120/82 H Intake Visit Reasons: 35 WEEK OB Chief Complaint: est ob Balance Weigher Required: No Is patient in pain?: No Allergies Penicillins Allergy (Verified 03/29/18 09:30) Rash Medications Propranolol HCl [Inderal (Beta Emily)] 20 mg PO BID 11/21/15 [History Confirmed 03/23/18] vitamin,calcium,qdybcdtz-xtxq-ndwzu acid tablet 1 tab PO QDAY 11/09/17 [...] MEDRANO Cosigner Signature: Date (if applicable) CC: ROAD MACHINE OPERATOR OFFICE VISIT Observed: 03/28/2018 Status: F Source: [place] REPORT 2:25 AM [facility] [address] [place] [address] OFFICE VISIT Date of Service: 03/23/18 MR#: [id number] Acct: [id number] Name: AMARA FIORE Rep #: [id number] : 1980 Provider: Bertha Hunt MD Age/Sex: 37/F Location: [facility] Status: Signed Intake Vital Signs03/23/18 Height 5 ft 6 in 03/23/18 Weight: 293 lb 8 oz 03/23/18 Body Mass Index (BMI) 47.3 03/23/18 Blood Pressure 120/80 Intake Visit Reasons: 34 WEEK OB Balance Weigher Required: No Is patient in pain?: Yes Allergies Penicillins Allergy (Verified 03/23/18 14:52) Rash Medications Propranolol HCl [Inderal (Beta Emily)] 20 mg PO BID 11/21/15 [History Confirmed 03/23/18] vitamin,calcium,zmfwosxq-ftvc-vygnn acid tablet 1 tab PO QDAY 11/09/17 [...] occupational status: employed current occupation: [employer] pets and animals: Yes history of recent [...] abortions Past Pregnancies Del. DatName GA/WeeksOutcome Route [facility] LocaProviderFOB e ht en th ia [...] ctx. cbc gct today. rh positive. tdap Bretha Hunt MD on 01/25/18 Visit Date: 01/04/18 [...] third trimester O99.213 Additional Codes Non-Stress Test (70657) 03/28/18 0225 <Electronically signed by Bertha Hunt MD> Date Bertha Hunt MD Cosigner Signature: Date (if applicable) CC: CBC W/DIFF, AUTOMATED Collected: 03/23/2018 Status: F Source: [place] 3:54 PM [facility] TYPE CODE TESTS RESULT OUT OF [...] Lymph 1.63 Performed By: #### L100.0100 #### [facility] [address] [place], [place], [address] ROAD MACHINE OPERATOR OFFICE VISIT Observed: 03/08/2018 Status: F Source: [place] REPORT 10:09 AM [facility] [address] [place] [address] OFFICE VISIT Date of Service: 03/08/18 MR#: [id number] Acct: [id number] Name: AMARA FIORE Jud Rep #: [id number] : 1980 Provider: Bertha Hunt MD Age/Sex: 37/F Location: [facility] Status: Signed Intake Vital Signs03/08/18 Height 5 ft 6 in 03/08/18 Weight: 289 lb 2 oz 03/08/18 Body Mass Index (BMI) 46.6 03/08/18 Blood Pressure 120/74 Intake Visit Reasons: 32 WEEK OB Balance Weigher Required: No Is patient in pain?: No Allergies Penicillins Allergy (Verified 03/08/18 09:39) Rash Medications Propranolol HCl [Inderal (Beta Emily)] 20 mg PO BID 11/21/15 [History Confirmed 03/08/18] vitamin,calcium,cailizvg-tmsd-nfeak acid tablet 1 tab PO QDAY 11/09/17 [...] abortions Past Pregnancies Del. DatName GA/WeeksOutcome Route [facility] LocaProviderFOB e ht en ia tn [...] Trimester: third trimester Additional Codes Non-Stress Test (70754) 03/08/18 1009 <Electronically signed by Bertha Hunt MD> Date Bertha Hunt MD [facility] Care[facility] Signature: Date (if applicable) CC: ROAD MACHINE OPERATOR OFFICE VISIT Observed: 02/22/2018 Status: F Source: [place] REPORT 9:53 AM [facility] [address] [place] [address]. [address] [place] [address] OFFICE VISIT Date of Service: 02/22/18 MR#: [id number] Acct: [id number] Name: AMARA FIORE Rep #: [id number] : 1980 Provider: Bertha Hunt MD Age/Sex: 37/F Location: [facility] Status: Signed Intake Vital Signs02/22/18 Height 5 ft 6 in 02/22/18 Weight: 287 lb 2 oz 02/22/18 Body Mass Index (BMI) 46.3 02/22/18 Blood Pressure 112/86 H Intake Visit Reasons: 30 WEEK OB Chief Complaint: est ob Balance Weigher Required: No Is patient in pain?: No Allergies Penicillins Allergy (Verified 02/22/18 09:32) Rash Medications Propranolol HCl [Inderal (Beta Emily)] 20 mg PO BID 11/21/15 [History Confirmed 02/22/18] vitamin,calcium,vhahiblb-zelg-nachc acid tablet 1 tab PO QDAY 11/09/17 [...] abortions Past Pregnancies Del. DatName GA/WeeksOutcome Route [facility]Inhopi [facility] LgAnesthesDel LocaProviderFOB e ht en ia tn [...] Labor Lgth Anesthesia Del Locatn Provider FOB 08/11/[id number] - full termC-section9 lbs 5 ouncesMale epiduralWCHSEM [...] MD Cosigner Signature: Date (if applicable) CC: ROAD MACHINE OPERATOR OFFICE VISIT Observed: 02/08/2018 Status: F Source: [place] REPORT 9:08 AM [facility] [address] [place] [address] OFFICE VISIT Date of Service: 02/08/18 MR#: [id number] Acct: [id number] Name: AMARA FIORE Rep #: [id number] : 1980 Provider: Bertha Hunt MD Age/Sex: 37/F Location: [facility] Status: Signed Intake Vital Signs02/08/18 Height 5 ft 6 in 02/08/18 Weight: 289 lb 4 oz 02/08/18 Body Mass Index (BMI) 46.7 02/08/18 Blood Pressure 122/68 H Intake Visit Reasons: 28 WEEK OB Chief Complaint: est ob Balance Weigher Required: No Is patient in pain?: No Allergies Penicillins Allergy (Verified 02/08/18 08:48) Rash Medications Propranolol HCl [Inderal (Beta Emily)] 20 mg PO BID 11/21/15 [History Confirmed 01/25/18] vitamin,calcium,arxusgxa-pszs-apyqb acid tablet 1 tab PO QDAY 11/09/17 [...] Labor Lgth Anesthesia Del Justoatn Provider FOB 08/11/[id number] - full termC-section9 lbs 5 ouncesMale epiduralWCHSEM [...] F Source: KLAUS CULTURE, URINE 12:00 AM [facility] Urine Culture Culture exhibits no growth. Performed By: #### M100.0650 #### [place] System[facility] [address] [place], [place], [address] CBC W/DIFF, AUTOMATED Collected: 01/25/2018 Status: F Source: KLAUS 10:55 AM [facility] TYPE CODE TESTS RESULT OUT OF [...] 1.15 Performed By: #### L100.0100, L501.0250 #### [facility] [address] [place], [address] GLUCOSE CHALLENGE GEST Collected: 01/25/2018 Status: F Source: KLAUS 1H 50G 10:55 AM [facility] TYPE CODE TESTS RESULT OUT OF RANGE REFERENCE UNITS LAB L501.0250 70-140 mg/dL Normal GLU GEST 100 50g 1H Performed By: #### L100.0100, L501.0250 #### [facility] [address] [place], [address] TYPE AND SCREEN Collected: 01/25/2018 Status: F Source: KLAUS 10:55 AM [facility] Order Comment: Reason for Type AND Screen/Red Cells: TYPE CODE TESTS RESULT OUT OF RANGE REFERENCE UNITS LAB B10.0800 A Normal BLOOD TYPE GEL POSITIVE LAB B100.4000 Normal Antibody NEGATIVE Screen Performed By: #### B101.7450 #### [facility] [address] [place], [address] ROAD MACHINE OPERATOR OFFICE VISIT Observed: 01/25/2018 Status: F Source: KLAUS REPORT 10:16 AM [facility] [place] [address] [place] [address] OFFICE VISIT Date of Service: 01/25/18 MR#: [id number] Acct: [id number] Name: AMARA FIORE Rep #: [id number] : 1980 Provider: Bertha Hunt MD Age/Sex: 37/F Location: [facility] Status: Signed Intake Vital Signs01/25/18 Height 5 ft 7 in 01/25/18 Weight: 289 lb 01/25/18 Body Mass Index (BMI) 45.2 01/25/18 Blood Pressure 122/80 Intake Visit Reasons: 26 WEEK OB Balance Weigher Required: No Is patient in pain?: No Allergies Penicillins Allergy (Verified 01/25/18 09:55) Rash Medications Propranolol HCl [Inderal (Beta Emily)] 20 mg PO BID 11/21/15 [History Confirmed 01/25/18] vitamin,calcium,vrisrvih-avmv-qetso acid tablet 1 tab PO QDAY 11/09/17 [...] abortions Past Pregnancies Del. DatName GA/WeeksOutcome Route [facility] LocaProviderFOB e ht en ia tn 08/11/13Kaden [...] Admin Location Lot Number Expiration Date NDC Agriculture Consultant 0.5 mL IM Right Arm (SQ) [id number] 10/27/19 47131-733-19 SANOFI-PASTEUR VIS Given Date VIS Publication Date [...] Labor Lgth Anesthesia Del Locatn Provider FOB 08/11/[id number] - full termC-section9 lbs 5 ouncesMale epiduralWCHSEM [...] signed by Bertha Hunt MD> Date Bertha Nelson Signature: Date (if applicable) CC: ROAD MACHINE OPERATOR OFFICE VISIT Observed: 01/04/2018 Status: F Source: KLAUS REPORT 9:18 AM [facility] [address] [place] [address] OFFICE VISIT Date of Service: 01/04/18 MR#: [id number] Acct: [id number] Name: AMARA FIORE Rep #: [id number] : 1980 Provider: OLGA Mitchell Age/Sex: 37/F Location: [facility] Status: Signed Intake Vital Signs01/04/18 Height 5 ft 7 in 01/04/18 Weight: 291 lb 8 oz 01/04/18 Body Mass Index (BMI) 45.6 01/04/18 Blood Pressure 102/70 Intake Visit Reasons: 23 WEEK OB Chief Complaint: est ob Balance Weigher Required: No Allergies Penicillins Allergy (Verified 01/04/18 08:59) Rash Medications Propranolol HCl [Inderal (Beta Emily)] 20 mg PO BID 11/21/15 [History Confirmed 01/04/18] vitamin,calcium,rsorxhqy-onpi-gypvu acid tablet 1 tab PO QDAY 11/09/17 [...] Labor Lgth Anesthesia Del Locatn Provider FOB 08/11/1331Urhpf01bucf - full termC-section9 lbs 5 ouncesMale epiduralWCHSEM [...] MEDRANO Cosigner Signature: Date (if applicable) CC: ROAD MACHINE OPERATOR OFFICE VISIT Observed: 12/08/2017 Status: F Source: KLAUS REPORT 6:07 AM [facility] [address] [place] [address] OFFICE VISIT Date of Service: 12/07/17 MR#: [id number] Acct: [id number] Name: AMARA FIORE Rep #: [id number] : 1980 Provider: Bertha Hunt MD Age/Sex: 37/F Location: [facility] Status: Signed Intake Vital Signs12/07/17 Height 5 ft 7 in 12/07/17 Weight: 290 lb 2 oz 12/07/17 Body Mass Index (BMI) 45.4 12/07/17 Blood Pressure 134/92 Intake Visit Reasons: 19 WEEK OB Balance Weigher Required: No Is patient in pain?: No Allergies Penicillins Allergy (Verified 12/07/17 10:44) Rash Medications Sertraline HCl [Zoloft] 100 mg PO DAILY 07/30/15 [History Confirmed 12/07/17] Propranolol HCl [Inderal (Beta Emily)] 20 mg PO BID 11/21/15 [History Confirmed 12/07/17] vitamin,calcium,spptstov-eywr-tkkcb acid tablet 1 tab PO QDAY 11/09/17 [History Confirmed 12/07/17] Last Menstral Period: 07/29/17 Zika: Zika virus screening: Negative : No PFSH PFSH Medical History Anxiety (Chronic) Hypertension (Chronic) Surgical History H/O section (2013) Family History Mother Diabetes Hypertension Father Diabetes Hypertension Social History household members: significant other, children housing: house number of children: 1 current occupational status: employed current occupation: [employer] pets and animals: Yes history of recent [...] abortions Past Pregnancies Del. DatName GA/WeeksOutcome Route [facility] Ame Daniels LgAnesthesDel LocaProviderFOB e ht en [...] Bth Weight Gen Labor Lgth Anesthesia Del [facility] Provider FOB 08/11/1358Ikpit24glyg - full termC-section9 lbs 5 ouncesMale epiduralWCHSEM [...] 12/07/2017 Status: F Source: KLAUS 8:22 AM [facility] Imaging Services [address] [place] [address] OB Anatomy Scan MR#: [id number] Acct: [id number] Name: AMARA FIORE Rep #: [id number] : 1980 F 37 From: Wild Hale MD PCP: Blaine Padgett DO Status: REG CLI Study: OB Anatomy Scan Date of Exam: 12/07/17 Exam# [id number] Ordering Dr: Bertha Hunt MD STUDY: SECOND [...] CC: Blaine Padgett DO; Bertha Hunt MD Saddle Lining Stitcher: Signed ROAD MACHINE OPERATOR OFFICE VISIT Observed: 11/11/2017 Status: F Source: [place] REPORT 12:57 AM [facility] [address] [place] [address] OFFICE VISIT Date of Service: 11/09/17 MR#: [id number] Acct: [id number] Name: AMARA FIORE Rep #: [id number] : 1980 Provider: Bertha Hunt MD Age/Sex: 36/F Location: [facility] Status: Signed Intake Vital Signs11/09/17 Height 5 ft 7 in 11/09/17 Weight: 287 lb 4 oz 11/09/17 Body Mass Index (BMI) 44.9 11/09/17 Blood Pressure 122/88 Intake Visit Reasons: 15 weeks Chief Complaint: est ob Balance Weigher Required: No Is patient in pain?: No Allergies Penicillins Allergy (Verified 11/09/17 15:49) Rash Medications Sertraline HCl [Zoloft] 100 mg PO DAILY 07/30/15 [History Confirmed 10/12/17] Propranolol HCl [Inderal (Beta Emily)] 20 mg PO BID 11/21/15 [History Confirmed 10/12/17] vitamin,calcium,omdqylvb-giyu-rzend acid tablet 1 tab PO QDAY 11/09/17 [...] abortions Past Pregnancies Del. DatName GA/WeeksOutcome Route [facility] LgAnestheTXel LocaProviderFOB e ht en th ia tn [...] 11/03/2017 Status: F Source: KLAUS 1:08 PM [facility] Medical Records Department [address] [place] [address] Downtime Report MR#: [id number] Acct: [id number] Name: AMARA FIORE Rep #: [id number] : 1980 36 From: London Connors PCP: Blaine Pdagett DO Status: REG CLI This patient was seen during an EMR downtime October 17, 2017 - October 24, 2017. This patient may have a combination of paper and electronic documentation or all paper documentation. All documentation is viewable within the e-chart portion of [facility] for each patient visit. MISCELLANEOUS LAB Collected: 10/21/2017 Status: F Source: KLAUS PROCEDURE 10:57 AM [facility] Order Comment: Test(s) Ordered: INFORMASEQ WITH X,Y ANALYSIS TYPE CODE TESTS RESULT OUT OF RANGE REFERENCE UNITS LAB L801.1541 Normal [facility] [place] [place] LAB TEST Result Comment: Scanned image report available in EMR Performed By: #### L801.1541 #### [facility] [address] [place], [place], [address] TYPE AND SCREEN Collected: 10/21/2017 Status: F Source: [place] 10:48 AM [facility] Order Comment: Reason for Type AND Screen/Red Cells: TYPE CODE TESTS RESULT OUT OF RANGE REFERENCE UNITS LAB B10.0800 A Normal BLOOD TYPE GEL POSITIVE LAB B100.4000 Normal Antibody NEGATIVE Screen Performed By: #### B101.7450 #### [facility]. [place], [place], [address] #### L3100.0390 #### [facility] (refer to report for specific site) refer to report for address and phone number HEPATITIS B SURFACE Collected: 10/21/2017 Status: F [facility] AM [facility] TYPE CODE TESTS RESULT OUT OF RANGE REFERENCE UNITS LAB L3100.0400 Normal HB SURF AG Result Comment: TEST RESULT LIMITS HBsAg Screen Negative Negative TESTING PERFORMED AT [facility]. ORIGINAL REPORT ON FILE IN LAB CONTAINS ADDITIONAL TEST SITE INFORMATION. Performed By: #### B101.7450 #### [facility]. [place], [place], [address] #### L3100.0390 #### [facility] (refer to report for specific site) refer to report for address and phone number CBC W/DIFF, AUTOMATED Collected: 10/21/2017 Status: F Source: [place] 10:48 AM [facility] TYPE CODE TESTS RESULT OUT OF [...] Lymph 1.26 Performed By: #### L100.0100 #### [facility] [address] [place], [place], [address] COMPREHENSIVE METABOLIC Collected: 10/21/2017 Status: F Source: [facility] 10:48 AM [facility] Order Comment: 82 TYPE CODE TESTS [...] GAP 9 Performed By: #### L500.4050 #### [facility] [address] [facility] [place], [address] RUBELLA IGG Collected: 10/21/2017 Status: F Source: [place] 10:48 AM [facility] TYPE CODE TESTS RESULT OUT OF RANGE REFERENCE UNITS LAB L509.4000 IU/mL Normal Rubella IgG 45.9 Result Comment: Antibody results Interpretation of Immune Status < 5 IU/ml Presumed Non-immune 5 - < 10 IU/ml Equivocal > or = 10 IU/ml Presumed Immune Performed By: #### L509.4000, L3890.6005, L700.5000 #### [facility] [address] [place], [address] HIV - [facility] Collected: 10/21/2017 Status: F Source: KLAUS 10:48 AM [facility] TYPE CODE TESTS RESULT OUT OF RANGE REFERENCE UNITS LAB L3890.6005 Nonreactive Normal HIV - [facility] Non-Reactive Performed By: #### L509.4000, L3890.6005, L700.5000 #### [facility] [address] [facility] [place], [address] RAPID PLASMIN REAGIN Collected: 10/21/2017 Status: F Source: KLAUS (RPR) 10:48 AM [facility] TYPE CODE TESTS RESULT OUT OF REFERENCE UNITS RANGE LAB L700.5000 NONREACTIVE NONREACTIVE Normal RPR Performed By: #### L509.4000, L3890.6005, L700.5000 #### [facility] [place], [address] PROTEIN+CREATININE Collected: Status: F Source: KLAUS RATIO,URINE 10/12/2017 5:24 PM [facility] TYPE CODE TESTS RESULT OUT OF RANGE REFERENCE UNITS LAB L501.1200 NO RANGE EST. mg/dL Normal UR CREAT 264.00 LAB L501.1930 <11.9 mg/dL High 16.3 PROTEIN,UR.R AN. LAB L501.1940 0-200 mg/g CRE Normal PROT:CRE 62 RATIO Performed By: #### L501.0900, L8200.2000, M100.0650 #### [facility] [place], [address] CT/NG [facility] BY PCR Collected: 10/12/2017 Status: F Source: KLAUS 5:24 PM [facility] TYPE CODE TESTS RESULT OUT OF RANGE REFERENCE UNITS LAB L8200.2100 Negative Normal Chlam Negative Trac PCR LAB L8200.2200 Negative Normal NG by Negative PCR Performed By: #### L501.0900, L8200.2000, M100.0650 #### [facility] [address] [place], [address] Observed: 10/12/2017 Status: F Source: KLAUS CULTURE, URINE 5:24 PM [facility] Urine Culture Culture exhibits no growth. Performed By: #### L501.0900, L8200.2000, M100.0650 #### [facility] [address] [place], [address] ROAD MACHINE OPERATOR OFFICE VISIT Observed: 10/12/2017 Status: F Source: KLAUS REPORT 1:13 PM [facility] [address] [place] [address] OFFICE VISIT Date of Service: 10/12/17 MR#: [id number] Acct: [id number] Name: AMARA FIORE Rep #: [id number] : 1980 Provider: Bertha Hunt MD Age/Sex: 36/F Location: [facility] Status: Signed Intake Vital Signs10/12/17 Height 5 [...] History Medical History: Positive: Hypertension, Depression/ depression, Rubble Placer surgery (cs), Operations/hospitalizations (cs), Negative: Diabetes, Heart [...] Status: F Source: KLAUS ,45 12:00 PM [facility] Order Comment: CYTOLOGY INFORMATION: - CLINICAL INFORMATION: - DATE LMP/MENOPAUSE: 07/19/17 LMP - COLLECTION VIAL: Thin Prep Vial - WATCH AND CLOCK MAKER AND REPAIRER SOURCE: CERVICAL - COLLECTION TECHNIQUE: CERVIX BROOM ONLY Specimen Comment: [id number] Specimen Comment: No. of containers..01 ThinPrep Vial [...] Normal PERFORM Comment Result Comment: Alis Carranza, Harness Brusher (ASCP) LAB L7400.2575 . Normal TEST METHOD [...] 51/52/56/58/59/66/68) without differentiation. Performed at: - [facility] [address] [id number] Syrup Machine Laborer: Brinda Trent MD, Phone: [phone] Performed at: =G - [facility] [address] StreetRashi penalozaton, [place] [id number] Syrup Machine Laborer: Brinda Trent MD, Phone: [phone] Performed By: #### L7400.0280 #### [facility] (refer to report for specific site) refer to report for address and phone number ALLERGIES ALLERGIES DATE TYPE / CODE NAME / CODE REACTION SEVERITY SOURCE 05/02/2018 Drug Penicillins/ Rash Unknown [facility] Allergy/4160 [id number]([facility] [address]478(SNOMED XNORM) Repository CT) ENCOUNTERS ENCOUNTERS ADMIT/DISCHARGE ACCOUNT ADMITTING ENCOUNTER LOCATION SOURCE NUMBER CLASS 05/02/2018/05/02/20 [id number] Ambulatory BMSBuilding:Marbella [address] MS.[facility] Repository 04/17/2018/04/19/20 [id number] Rhianna, Inpatient [place] [address] Bertha Encounter [facility] ing:WPRoom: Repository CW599Msw: 1 04/17/2018 [id number] Rhianna, Ambulatory BMSBuilding:Marbella Stone MS.CF.[facility] Repository 04/17/2018 [id number] Rhianna, Ambulatory BMSBuilding:Marbella [place] MS.CF.[facility] Repository 04/17/2018 [id number] Rhianna, Ambulatory BMSBuilding:Marbella Stone MS.CF.[facility] Repository 04/12/2018/04/12/20 [id number] Ambulatory BMSBuilding:B [place] [address] MS.[facility] Repository 04/11/2018/04/11/20 [id number] Ambulatory [address] ing:WPOUTRoom Repository : WP012 04/05/2018 [id number] Ambulatory [facility] ing:LABSPEC Repository 04/05/2018/04/05/20 [id number] Ambulatory BMSBuilding:B [place] [address] MS.[facility] Hospital Repository 03/29/2018/03/29/20 [id number] Ambulatory BMSBuilding:B [place] [address] MS.[facility] Hospital Repository 03/23/2018 [id number] Ambulatory [facility] Hospital ing:LAB Repository 03/23/2018/03/23/20 [id number] Ambulatory BMSBuilding:B [place] [address] [place].[facility] Hospital Repository 03/13/2018 [id number] Ambulatory Building:[facility] Repository 03/08/2018/03/08/20 [id number] Ambulatory BMSBuilding:B [place] [address] MS.[facility] Repository 02/22/2018/02/23/20 [id number] Ambulatory BMSBuilding:B [place] [address] MS.[facility] Repository 02/08/2018 [id number] [facility] ing:LAB[facility] Repository 02/08/2018/02/09/20 [id number] Ambulatory BMSBuilding:B [place] 18 MS.[facility] Hospital Repository 01/25/2018 [id number] [facility] Repository 01/25/2018/01/26/20 [id number] Ambulatory BMSBuilding:B [place] 18 MS.[facility] Hospital Repository 01/04/2018/01/05/20 [id number] Ambulatory BMSBuilding:B [place] 18 MS.[facility] Hospital Repository 12/07/2017/12/08/19 [id number] Ambulatory BMSBuilding:B [place] [address] [facility] Hospital Repository 12/07/2017 [id number] Ambulatory [facility] Hospital ing:OPUS Repository 11/09/2017/11/10/19 [id number] Ambulatory BMSBuilding:B [place] [address] [facility] Hospital Repository 10/21/2017 [id number] Ambulatory [facility] Hospital ing:LAB Repository 10/12/2017 [id number] Ambulatory [facility] Hospital ing:LABSPEC Repository 10/12/2017/10/13/19 [id number] Ambulatory BMSBuilding:B [place] [address] MS.[facility] Hospital Repository PAYERS PAYERS ENCOUNTER GUARANTOR PAYER SUBSCRIBER SOURCE 05/02/2018 AMARA D Primary AMARA D [place] [id number] Insurance:ANTHEMPolic MCCULLOUGHDOB: Community [place] y Number: [id number], [place] [id number] Repository [address]Oyk: (330) Date:6203-49-78XS [phone] () [id number] [place] [address]FR: 05/02/2018 Secondary NOT GIVENUNK [place] Insurance:SELF PAY [facility] Number: Effective Repository Date:2018-05-02 04/17/2018 AMARA D Primary AMARA D [place] [id number] Insurance:ANTHEMPolic MCCULLOUGHDOB: Community [place] y Number: [id number], [place] [id number] Repository [address]Rmj: (330) Date:0823-35-04TO [phone] () 538[address]BIKDIUB, [place] [address]DJ: 04/17/2018 Secondary NOT GIVENUNK [place] Insurance:SELF PAY [facility] Number: Effective Repository Date:2018-02-14 04/17/2018 AMARA D Primary AMARA D [place] [id number] Insurance:ANTHEMPolic MCCULLOUGHDOB: Community [place] y Number: [id number], [place] [id number] Repository [address]Fnj: (330) Date:5682-73-80BR [phone] () [id number] [place] [address]ZZ: 04/17/2018 Secondary NOT GIVENUNK [place] Insurance:SELF PAY [facility] Number: Effective Repository Date:2018-04-17 04/17/2018 AMARA D Primary AMARA D [place] [id number] Insurance:ANTHEMPolic MCCULLOUGHDOB: Community [place] y Number: [id number], [place] [id number] Repository [address]Nhj: (330) Date:9992-63-27AI [phone] () [id number], [place] [address]SZ: 04/17/2018 Secondary NOT GIVENUNK [place] Insurance:SELF PAY [facility] Number: Effective Repository Date:2018-04-17 04/17/2018 AMARA D Primary AMARA D [place] [id number] Insurance:ANTHEMPolic MCCULLOUGHDOB: Community [place] y Number: [id number], [place] [id number] Repository [address]Reb: (330) Date:8479-93-01UB [phone] () [id number], [place] [address]DF: 04/17/2018 Secondary NOT GIVENUNK [place] Insurance:SELF PAY [facility] Number: Effective Repository Date:2018-04-17 04/12/2018 AMARA D Primary AMARA D [place] [id number] Insurance:ANTHEMPolic MCCULLOUGHDOB: Community [place] y Number: [id number], [place] [id number] Repository [address]Iry: (330) Date:8778-68-28QI [phone] () [address]36[address]BGRQUFS, [place] [address]MV: 04/12/2018 Secondary NOT GIVENUNK [place] Insurance:SELF PAY [facility] Number: Effective Repository Date:2018-01-04 04/11/2018 AMARA D Primary AMARA D [place] [id number] Insurance:ANTHEMPolic MCCULLOUGHDOB: Community [place] y Number: [id number], [place] [id number] Repository [address]Pmr: (330) Date:9786-43-39KQ [phone] () [id number], [place] [address]CS: 04/11/2018 Secondary NOT GIVENUNK [place] Insurance:SELF PAY [facility] Number: Effective Repository Date:2018-04-11 04/05/2018 AMARA D Primary AMARA D [place] [id number] Insurance:ANTHEMPolic MCCULLOUGHDOB: Community D[place] y Number: [id number], [place] [id number] Repository [address]Uqj: (330) Date:1268-75-76DE [phone] () [address] [place] [address]PR: 04/05/2018 Secondary NOT GIVENUNK [place] Insurance:SELF PAY [facility] Number: Effective Repository Date:2018-04-05 04/05/2018 AMARA D Primary AMARA D [place] [id number] Insurance:ANTHEMPolic MCCULLOUGHDOB: Community D[place] y Number: [id number], [place] [id number] Repository [address]Lcw: (330) Date:2988-59-47DF [phone] () [address] [place] [address]KM: 04/05/2018 Secondary NOT GIVENUNK [place] Insurance:SELF PAY [facility] Number: Effective Repository Date:2018-01-04 03/29/2018 AMARA D Primary AMARA D [place] [id number] Insurance:ANTHEMPolic MCCULLOUGHDOB: Community [place] y Number: [id number], [place] [id number] Repository [address]Zka: (330) Date:4075-64-95OU [phone] () [id number], [place] [address]NF: 03/29/2018 Secondary NOT GIVENUNK [place] Insurance:SELF PAY [facility] Number: Effective Repository Date:2018-01-04 03/23/2018 AMARA D Primary AMARA D [place] [id number] Insurance:ANTHEMPolic MCCULLOUGHDOB: Community [place] y Number: [id number], [place] [id number] Repository [address]Txf: (330) Date:1036-81-71SL [phone] () [place] [address]TV: 03/23/2018 Secondary NOT GIVENUNK [place] Insurance:SELF PAY [facility] Number: Effective Repository Date:2018-03-23 03/23/2018 AMARA D Primary AMARA D [place] [id number] Insurance:ANTHEMPolic MCCULLOUGHDOB: Community [place] y Number: [id number], [place] [id number] Repository [address]Lar: (851) Date:4231-77-90FN [phone] () [id number], [place] [address]FG: 03/23/2018 Secondary NOT GIVENUNK [place] Insurance:SELF PAY [facility] Number: Effective Repository Date:2018-01-04 03/13/2018 AMARA Primary [facility]ARA [facility] MCCOLLOUGHDOB: Insurance:ANTHEMPolic MCCOLLOUGHDOB: Hospital y Number: [id number] Repository [place] [id number] [place], [place] Date: [place], [place] [address]Yku: (330) [phone] () 03/08/2018 AMARA D Primary AMARA D [place] [id number] Insurance:ANTHEMPolic MCCULLOUGHDOB: Community [place] y Number: [id number], [place] [id number] Repository [address]Kwd: (330) Date:7628-47-12IC [phone] () [id number] KRAFT [address]VS: 03/08/2018 Secondary NOT GIVENUNK [place] Insurance:SELF PAY [facility] Number: Effective Repository Date:2018-01-04 02/22/2018 AMARA D Primary AMARA D [place] [id number] Insurance:ANTHEMPolic MCCULLOUGHDOB: Community [place] y Number: [id number], [place] [id number] Repository [address]Aob: (330) Date:8909-82-82XA [phone] () [place] [id number]: 02/22/2018 Secondary NOT GIVENUNK [place] Insurance:SELF PAY [facility] Number: Effective Repository Date:2018-02-22 02/08/2018 AMARA D Primary AMARA D [place] [id number] Insurance:ANTHEMPolic MCCULLOUGHDOB: Community [place] y [place]: [id number] [id number] Repository [address]Cbr: (330) Date:0904-17-91IQ [phone] () [id number], [place] [address]PM: 02/08/2018 Secondary NOT GIVENUNK [place] Insurance:SELF PAY [facility] Number: Effective Repository Date:2018-02-08 02/08/2018 AMARA D Primary AMARA D [place] [id number] Insurance:ANTHEMPolic MCCULLOUGHDOB: Community [place] y Number: [id number], [place] [id number] Repository [address]Epg: (330) Date:9042-40-38BV [phone] () [place] [id number]: 02/08/2018 Secondary NOT GIVENUNK [place] Insurance:SELF PAY [facility] Number: Effective Repository Date:2018-02-08 01/25/2018 AMARA D Primary AMARA D [place] [id number] Insurance:ANTHEMPolic [place]ULLOUGHDOB: Community [place] y Number: [id number], [place] [id number] Repository [address]Fin: (330) Date:2651-52-40GH [phone] () [place] [address]RZ: 01/25/2018 Secondary NOT GIVENUNK [place] Insurance:SELF PAY [facility] Number: Effective Repository Date:2018-01-25 01/25/2018 AMARA D Primary AMARA D [place] [id number] Insurance:ANTHEMPolic [place]CCULLOUGHDOB: Community [place] y Number: [id number], [place] [id number] Repository [address]Mac: (330) Date:9554-26-08QY [phone] () [id number] [place] [address]EQ: 01/25/2018 Secondary NOT GIVENUNK [place] Insurance:SELF PAY [facility] Number: Effective Repository Date:2018-01-20 01/04/2018 AMARA D Primary AMARA D [place] [id number] Insurance:ANTHEMPolic [place]CCULLOUGHDOB: Community [place] y Number: [id number], [place] [id number] Repository [address]Gge: (330) Date:2508-85-67OF [phone] () [id number] [place] [address]AN: 01/04/2018 Secondary NOT GIVENUNK [place] Insurance:SELF PAY [facility] Number: Effective Repository Date:2018-01-04 12/07/2017 AMARA D Primary AMARA D [place] [id number] Insurance:ANTHEMPolic [place]ULLOUGHDOB: Community [place] y Number: [id number], [place] [id number] Repository [address]Nou: (330) Date:6112-31-40DF [phone] () [id number], [place] [address]TC: 12/07/2017 Secondary NOT GIVENUNK [place] Insurance:SELF PAY [facility] Number: Effective Repository Date:2017-12-07 12/07/2017 AMARA D Primary AMARA D [place] [id number] Insurance:ANTHEMPolic [place]ULLOUGHDOB: Community [place] y Number: [id number], [place] [id number] Repository [address]Syz: (330) Date:9146-71-49KT [phone] () [id number], [place] [address]XK: 12/07/2017 Secondary NOT GIVENUNK [place] Insurance:SELF PAY [facility] Number: Effective Repository Date:2017-10-12 11/09/2017 AMARA D Primary AMARA D [place] [id number] Insurance:ANTHEMPolic MCCULLOUGHDOB: Community [place] y Number: [id number], [place] [id number] Repository [address]Att: (330) Date:7455-55-45QF [phone] () [place] [address]PU: 11/09/2017 Secondary NOT GIVENUNK [place] Insurance:SELF PAY [facility] Number: Effective Repository Date:2017-11-09 10/21/2017 AMARA D Primary AMARA D [place] [id number] Insurance:ANTHEMPolic MCCULLOUGHDOB: Community [place] y Number: [id number], [place] [id number] Repository [address]Hic: (330) Date:7143-74-25NX [phone] () [place] [address]OB: 10/21/2017 Secondary NOT GIVENUNK [place] Insurance:SELF PAY [facility] Number: Effective Repository Date:2017-10-21 10/12/2017 AMARA D Primary AMARA D [place] [id number] Insurance:ANTHEMPolic MCCULLOUGHDOB: Community [place] y Number: [id number], [place] [id number] Repository [address]Pjt: (330) Date:6757-36-41ZH [phone] () [id number] KRAFT [address]VX: 10/12/2017 Secondary NOT GIVENUNK [place] Insurance:[facility]Y [facility] Number: Effective Repository Date:2017-10-12 10/12/2017 AMARA Jud Primary AMARA D [place] [id number] [facility] Community [place] y Number: [id number], [place] [id number] Repository [address]Wvf: 330) Date:8559-39-48FX [phone] () [id number], [place] [address]KP: 10/12/2017 Secondary NOT GIVENUNK [place] Insurance:SELF PAY [facility] Number: Effective Repository Date:2017-10-12
== END 2018-04-19 13:12 | disposition home or self-care (01) | DRG 787 ==
PROVIDERS: Admitting Provider Obstetrics & Gynecology; Family Provider Student in an Organized Health Care Education/Training Program; PCP Student in an Organized Health Care Education/Training Program; Referring Provider Obstetrics & Gynecology; Visit Provider Obstetrics & Gynecology
PROC: 10D00Z1 Extraction of Products of Conception, Low, Open Approach (ICD-10-PCS; CPT 59514; principal; 2018-04-17 11:45)
DX: O34.211 Maternal care for low transverse scar from previous cesarean delivery (principal); Z68.42 Body mass index [BMI] 45.0-49.9, adult; Z3A.38 38 weeks gestation of pregnancy; Z37.0 Single live birth; O99.214 Obesity complicating childbirth; E66.9 Obesity, unspecified; O16.4 Unspecified maternal hypertension, complicating childbirth; Z79.899 Other long term (current) drug therapy; O99.344 Other mental disorders complicating childbirth; F41.9 Anxiety disorder, unspecified; D64.9 Anemia, unspecified; O99.02 Anemia complicating childbirth
CPT/HCPCS: 85025; 85027; 86850; 86900; 94762; 99218; J7120; A4216; G0378; J2405

== ENCOUNTER → 2020-02-20 | Outpatient (CLI) | payer BC, SELFPAY ==
[2018-05-30 13:49] VITALS: BMI 45.7
== END | disposition home or self-care (01) ==
LOC: LABSPEC 07:33
PROVIDERS: PCP Student in an Organized Health Care Education/Training Program; Referring Provider Family Medicine; Visit Provider Family Medicine
DX: Z03.818 Encounter for observation for suspected exposure to other biological agents ruled out (principal)
CPT/HCPCS: 87635; U0003

== ENCOUNTER → 2020-04-16 | Outpatient (REF) | payer MEDICARE, SELFPAY ==
[2018-05-30 13:49] VITALS: BMI 45.7
== END | disposition home or self-care (01) ==
LOC: LABSPEC 07:00
PROVIDERS: PCP Student in an Organized Health Care Education/Training Program; Referring Provider Family Medicine; Visit Provider Family Medicine
DX: U07.1 COVID-19 (principal)
CPT/HCPCS: 87635; U0003